=== PATIENT | female | born 1945 | race Two or more races ===

== ENCOUNTER 2017-08-27 21:09 | Inpatient (IN) | payer MEDICARE, OTHER ==
[~2017-08-27] VITALS: Ht 175.3 cm; Wt 105.7 kg
[~2017-08-27 21:09] MED LIST: ASPIR 8181 MG ORAL; BENAZEPRIL HCL5 MG ORAL; ESTROGEN; HUMULIN N100 UNIT/3 SQ; HUMULIN R100 UNIT/1 SUBQ; METFORMIN HCL500 M1 ORAL; NOVOLIN R100 UNIT/1 SUBQ; OMEPRAZOLE20 M2 ORAL; TRAMADOL; UNOBMED; [UNRECOGNIZED DRUG - REMARK]
[2017-08-27] MEDS: Nitroglycerin Subl 0.4mg tab SL PRN ×2 (21:45→21:52)
[2017-08-27 21:53] VITALS: BP 134/47
[2017-08-27] MEDS ORDERED: Morphine Sulfate 4mg/ml Inj ONE (22:06)
[2017-08-27] MEDS ORDERED: Morphine Sulfate 4mg/ml Inj IVP ONE (22:15)
[2017-08-27 22:21] LABS: BASOPHILS % (AUTO) 0.9 % (0.0-2.0); EOSINOPHILS % (AUTO) 1.5 % (0.0-3.0); LYMPHOCYTES % (AUTO) 17.2 % (20.0-45.0); MEAN CORPUSCULAR HEMOGLOBIN 27.7 PG (27.0-31.0); MEAN CORPUSCULAR HGB CONC 30.1 G/DL (32.0-36.0); MEAN CORPUSCULAR VOLUME 92 FL (80-99); MEAN PLATELET VOLUME 8.5 FL (6.5-10.1); MONOCYTES % (AUTO) 4.2 % (1.0-10.0); NEUTROPHILS % (AUTO) 76.2 % (45.0-75.0); PLATELET COUNT 182 K/UL (150-450); RED BLOOD COUNT 4.35 M/UL (4.20-5.40); RED CELL DISTRIBUTION WIDTH 12.5 % (11.6-14.8); WHITE BLOOD COUNT 10.8 K/UL (4.8-10.8)
[2017-08-27] MEDS ORDERED: PRAVASTATIN SOD20 M1 ORAL (22:57)
[2017-08-27] MEDS ORDERED: PANTOPRAZOLE SO40 MG ORAL (22:57)
[2017-08-27] MEDS ORDERED: GABAPENTIN300 MG ORAL (22:57)
[2017-08-27] MEDS ORDERED: TRAMADOL HCL50 MG ORAL (22:57)
[2017-08-27 22:58] LABS: ALANINE AMINOTRANSFERASE 26 U/L (12-78); ALBUMIN/GLOBULIN RATIO 0.8 (1.0-2.7); ASPARTATE AMINO TRANSFERASE 29 U/L (15-37); CALCIUM 7.8 MG/DL (8.5-10.1); CARBON DIOXIDE 24 MMOL/L (21-32); CHLORIDE 110 MMOL/L (98-107); CKMB 1.1 NG/ML (0.0-3.6); SODIUM 142 MMOL/L (136-145); TOTAL PROTEIN 5.6 G/DL (6.4-8.2)
[2017-08-27 23:34] VITALS: BP 161/62
[2017-08-27 23:53] LABS: APPEARANCE,URINE SLIGHTLY CLOUDY; KETONES,URINE NEGATIVE (NEGATIVE); LEUKOCYTE ESTERASE ,URINE 3+ (NEGATIVE); NITRITE,URINE POSITIVE (NEGATIVE); PH,URINE 5 (4.5-8.0); PROTEIN,URINE 2+ (NEGATIVE); UROBILINOGEN,URINE NORMAL MG/DL (0.0-1.0)
[2017-08-28] VITALS (7 sets, daily range): BP systolic 114–174; BP diastolic 54–92
[2017-08-28 00:26] LABS: BACTERIA,URINE MODERATE /HPF; SQUAMOUS EPITHELIAL CELL,UR MANY /LPF (NONE/OCC); WBC,URINE TNTC /HPF (0 - 2)
[2017-08-28] MEDS ORDERED: Morphine Sulfate 4mg/ml Inj IVP ONE (01:00)
--- NOTE | 2017-08-28 01:26 | Emergency Room Report ---
History of Present Illness General Chief Complaint: Chest Pain Source: Patient Present Illness HPI 72-year-old female presents ED complaining of chest pain. States pain has been there for 4 days. Pain is midsternal, pressure-like, 8/10, nonradiating. Patient states she feels short of breath. Notes leg swelling. Denies history of CHF. Eyes fevers or chills. Denies cough. No other aggravating or leading factors. Denies any other associated symptoms Allergies: Coded Allergies: No Known Allergies (Unverified , 01/31/14) Patient History Past Medical History: DM, HTN Past Surgical History: none Pertinent Family History: none Social History: Denies: smoking, alcohol use, drug use Now: No Immunizations: UTD Reviewed Nursing Documentation: PMH: Agreed, PSxH: Agreed Nursing Documentation-PMH Hx Cardiac Problems: Yes - high cholesterol Hx Hypertension: Yes Hx Diabetes: Yes Hx Cancer: No Hx Gastrointestinal Problems: No Hx Neurological Problems: No Review of Systems All Other Systems: negative except mentioned in HPI Physical Exam Vital Signs Date Time Temp Pulse Resp B/P (MAP) Pulse Ox O2 Delivery O2 Flow Rate FiO2 08/27/17 21:15 98.2 66 18 143/76 90 Room Air 08/27/17 21:49 2.0 Sp02 EP Interpretation: reviewed, normal General Appearance: no apparent distress, alert, GCS 15, non-toxic, obese Head: normocephalic, atraumatic Eyes: bilateral eye normal inspection, bilateral eye PERRL ENT: hearing grossly normal, normal pharynx, no angioedema, normal voice Neck: full range of motion, supple/symm/no masses Respiratory: chest non-tender, lungs clear, normal breath sounds, speaking full sentences Cardiovascular #1: regular rate, rhythm, no edema Cardiovascular #2: 2+ carotid (R), 2+ carotid (L), 2+ radial (R), 2+ radial (L) , 2+ dorsalis pedis (R), 2+ dorsalis pedis (L) Gastrointestinal: normal bowel sounds, non tender, soft, non-distended, no guarding, no rebound Rectal: deferred Genitourinary: normal inspection, no CVA tenderness Musculoskeletal: back normal, gait/station normal, normal range of motion, non- tender, swelling - 1+ pitting edema b/l LE Neurologic: alert, oriented x3, responsive, motor strength/tone normal, sensory intact, speech normal Psychiatric: judgement/insight normal, memory normal, mood/affect normal, no suicidal/homicidal ideation Reflexes: 3+ bicep (R), 3+ bicep (L), 3+ tricep (R), 3+ tricep (L), 3+ knee (R) , 3+ knee (L) Skin: normal color, no rash, warm/dry, well hydrated Lymphatic: no adenopathy Medical Decision Making Diagnostic Impression: Primary Impression: Acute coronary syndrome Additional Impressions: CHF exacerbation Qualified Codes: I50.9 - Heart failure, unspecified Renal failure (ARF), acute on chronic Qualified Codes: N17.9 - Acute kidney failure, unspecified; N18.9 - Chronic kidney disease, unspecified ER Course Hospital Course 72-year-old female presents ED complaining of chest pain, sob Differential diagnoses include: [place]/unstable angina, contusion, muscle strain, PTX, rib fracture Clinical course Patient placed on stretcher. 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 After initial history and physical I ordered labs, EKG, chest x-ray, NTG labs reviewed- no leukocytosis, hb/hct stable, BUN/Cr elevated, trop negative, BNP elevated EKG - NSR, no acute ischemic changes interpreted by me Chest x-ray- CHF, cardiomegaly Chest pain improved after nitroglycerin, morphine. Patient given Lasix. Case discussed with Dr. Balbuena (assigned hospitalist) and he agreed to accept the patient to his service for further care and support I. I feel this is a highly complex case requiring extensive working including EKG/Rhythm strip, Xray/CT/US, Blood/urine lab work, repeat exams while in ED, and administration of strong opiates/narcotics for pain control, admission to hospital or close patient follow up. Diagnosis - ACS, CHF, acute on chronic renal failure admitted to telemetry in serious condition Labs Test 08/27/17 21:39 08/27/17 23:25 White Blood Count 10.8 K/UL (4.8-10.8) Red Blood Count 4.35 M/UL (4.20-5.40) Hemoglobin 12.0 G/DL (12.0-16.0) Hematocrit 40.0 % (37.0-47.0) Mean Corpuscular Volume 92 FL (80-99) Mean Corpuscular Hemoglobin 27.7 PG (27.0-31.0) Mean Corpuscular Hemoglobin Concent 30.1 G/DL (32.0-36.0) Red Cell Distribution Width 12.5 % (11.6-14.8) Platelet Count 182 K/UL (150-450) Mean Platelet Volume 8.5 FL (6.5-10.1) Neutrophils (%) (Auto) 76.2 % (45.0-75.0) Lymphocytes (%) (Auto) 17.2 % (20.0-45.0) Monocytes (%) (Auto) 4.2 % (1.0-10.0) Eosinophils (%) (Auto) 1.5 % (0.0-3.0) Basophils (%) (Auto) 0.9 % (0.0-2.0) Sodium Level 142 MMOL/L (136-145) Potassium Level 4.0 MMOL/L (3.5-5.1) Chloride Level 110 MMOL/L (98-107) Carbon Dioxide Level 24 MMOL/L (21-32) Blood Urea Nitrogen 31 mg/dL (7-18) Creatinine 2.0 MG/DL (0.55-1.30) Estimat Glomerular Filtration Rate mL/min (>60) Glucose Level 242 MG/DL (74-106) Calcium Level 7.8 MG/DL (8.5-10.1) Total Bilirubin 0.3 MG/DL (0.2-1.0) Aspartate Amino Transf (AST/SGOT) 29 U/L (15-37) Alanine Aminotransferase (ALT/SGPT) 26 U/L (12-78) Alkaline Phosphatase 121 U/L (46-116) Total Creatine Kinase 37 U/L (26-308) Creatine Kinase MB 1.1 NG/ML (0.0-3.6) Creatine Kinase MB Relative Index 2.9 Troponin I 0.013 ng/mL (0.000-0.056) Pro-B-Type Natriuretic Peptide 883 (0-125) Total Protein 5.6 G/DL (6.4-8.2) Albumin 2.5 G/DL (3.4-5.0) Globulin 3.1 g/dL Albumin/Globulin Ratio 0.8 (1.0-2.7) Urine Color Pale yellow Urine Appearance Slightly cloudy Urine pH 5 (4.5-8.0) Urine Specific [place] 1.020 (1.005-1.035) Urine Protein 2+ (NEGATIVE) Urine Glucose (UA) 1+ (NEGATIVE) Urine Ketones Negative (NEGATIVE) Urine Occult Blood 2+ (NEGATIVE) Urine Nitrite Positive (NEGATIVE) Urine Bilirubin Negative (NEGATIVE) Urine Urobilinogen Normal MG/DL (0.0-1.0) Urine Leukocyte Esterase 3+ (NEGATIVE) Urine RBC 2-4 /HPF (0 - 2) Urine WBC Tntc /HPF (0 - 2) Urine Squamous Epithelial Cells Many /LPF (NONE/OCC) Urine Bacteria Moderate /HPF (NONE) EKG Diagnostic Results Rate: normal Rhythm: NSR ST Segments: no acute changes ASA given to the pt in ED: No - given at home Rhythm Strip Diag. Results EP Interpretation: yes Rhythm: NSR, no PVC's, no ectopy Chest X-Ray Diagnostic Results Chest X-Ray Diagnostic Results : Chest X-Ray Ordered: Yes # of Views/Limited/Complete: 1 View Indication: Chest Pain EP Interpretation: Yes Interpretation: no consolidation, no pneumothorax, no acute cardiopulmonary disease, other - cardiomegaly. pulmoanry congestion Impression: Other - chf Electronically Signed by: Electronically signed by Vinay Post MD Last Vital Signs Date Time Temp Pulse Resp B/P (MAP) Pulse Ox O2 Delivery O2 Flow Rate FiO2 08/28/17 01:08 98.2 60 18 174/92 97 Nasal Cannula 3.0 Status: improved Disposition: ADMITTED INPATIENT Condition: Serious Referrals: [facility],REFERR[facility] (PCP) VINAY POST M.D. Aug 28, 2017 01:26
[2017-08-28] MEDS ORDERED: traMADol 50mg tab ORAL PRN (02:30)
[2017-08-28] MEDS ORDERED: NovoLOG Insulin Flexpen SUBQ SCH (06:30)
[2017-08-28] MEDS: Morphine Sulfate 2mg/ml Inj IVP PRN ×4 (06:42→19:49)
[2017-08-28] MEDS: NovoLOG Insulin Flexpen SUBQ SCH ×4 (07:07→20:57)
[2017-08-28 08:51] LABS: EOSINOPHILS % (AUTO) 4.2 % (0.0-3.0); LYMPHOCYTES % (AUTO) 28.5 % (20.0-45.0); MEAN CORPUSCULAR HGB CONC 30.9 G/DL (32.0-36.0); MEAN CORPUSCULAR VOLUME 90 FL (80-99); MEAN PLATELET VOLUME 8.8 FL (6.5-10.1); MONOCYTES % (AUTO) 5.1 % (1.0-10.0); NEUTROPHILS % (AUTO) 61.3 % (45.0-75.0); PLATELET COUNT 192 K/UL (150-450); RED BLOOD COUNT 4.32 M/UL (4.20-5.40); RED CELL DISTRIBUTION WIDTH 12.5 % (11.6-14.8)
[2017-08-28] MEDS ORDERED: Aspirin Baby 81mg ORAL ONE (09:00)
[2017-08-28] MEDS ORDERED: Flu Vaccine Quadrivalent 0.5ml IM ONE (09:30)
[2017-08-28] MEDS: Aspirin Baby 81mg ORAL SCH (09:34)
[2017-08-28] MEDS: Lisinopril 10mg tab ORAL SCH (09:34)
[2017-08-28] MEDS: cefTRIAXone 1 GM in D5W 55 ML IVPB SCH (09:34)
[2017-08-28 09:39] LABS: CHOLESTEROL 168 MG/DL (< 200); CHOLESTEROL/HDL RATIO 2.6 (3.3-4.4)
[2017-08-28 10:38] LABS: HEMOGLOBIN A1C 10.4 % (4.5-6.5)
[2017-08-28 10:50] LABS: ALANINE AMINOTRANSFERASE 36 U/L (12-78); ALBUMIN/GLOBULIN RATIO 0.6 (1.0-2.7); ANION GAP 9 (5-15); ASPARTATE AMINO TRANSFERASE 29 U/L (15-37); CALCIUM 8.9 MG/DL (8.5-10.1); CARBON DIOXIDE 27 MMOL/L (21-32); CHLORIDE 102 MMOL/L (98-107); CREATININE 2.4 MG/DL (0.55-1.30); POTASSIUM 4.6 MMOL/L (3.5-5.1); SODIUM 138 MMOL/L (136-145); THYROID STIMULATING HORMONE 1.291 uiU/mL (0.360-3.740); TOTAL PROTEIN 7.5 G/DL (6.4-8.2)
--- NOTE | 2017-08-28 11:09 | Diagnostic Imaging Report ---
Indication: CP Technique: One view of the chest Comparison: 02/06/2014 Findings: The heart is enlarged. There is mild interstitial congestion, new or increased from the earlier study. No focal airspace consolidation. Pleural spaces are clear Impression: Cardiomegaly with mild interstitial edema
[2017-08-28] MEDS: Nitroglycerin 2% oint pkt TOPIC SCH ×2 (11:36→18:11)
--- NOTE | 2017-08-28 12:38 | History & Physical ---
History and Physical History & Physicial dict ACS CHF DM HTN HPLD see orders called cardiology MARISOL ORTIZ Aug 28, 2017 12:38
--- NOTE | 2017-08-28 17:54 | Consultation ---
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
--- NOTE | 2017-08-28 19:16 | History and Physical Report ---
DATE OF ADMISSION: 08/28/2017 CHIEF COMPLAINT: Chest pain. HISTORY OF PRESENT ILLNESS: This 72-year-old woman came from home to the emergency department complaining of four days of chest pain. The pain has been constant and midsternal, radiating to the left shoulder, left arm and the neck. She has some shortness of breath as well as leg swelling. There is no history of congestive heart failure. She has no history of cardiac disease. She had a slight cough. She is a past cigarette smoker. PAST MEDICAL HISTORY: Diabetes, hypertension, and hyperlipidemia. MEDICATIONS: Reviewed and reconciled. She is on insulin. ALLERGIES: None. REVIEW OF SYSTEMS: Otherwise, unremarkable. PHYSICAL EXAMINATION: GENERAL: The patient is obese. VITAL SIGNS: Otherwise, vital signs are normal. HEENT: Head is normocephalic. NECK: No jugular venous distention. CHEST: Clear. CARDIAC: Rhythm is regular. Heart tones are distant. There is no murmur or gallop. EXTREMITIES: No edema. ABDOMEN: Soft and nontender. Liver and spleen not enlarged. EXTREMITIES: No edema present at this time. IMPRESSION: 1. Chest pain, suggestive of acute coronary syndrome. 2. Congestive heart failure. 3. Chronic kidney disease. 4. Diabetes. 5. Hyperlipidemia. PLAN: The patient will be evaluated by Cardiology and cardiac enzymes will be obtained. We will give diuretics and evaluate with an echocardiogram. Rolando Balbuena M.D. DR: KIKI JOB#: [id number] CC:
[2017-08-28] MEDS: Xarelto 15mg tab ORAL SCH (20:55)
[2017-08-29 00:05] VITALS: BP 129/78
[2017-08-29] MEDS: Morphine Sulfate 2mg/ml Inj IVP PRN ×4 (01:43→21:25)
[2017-08-29 04:14] VITALS: BP 122/59
--- NOTE | 2017-08-29 04:17 | Consultation ---
DATE OF CONSULTATION: 08/28/2017 CARDIOLOGY CONSULTATION CONSULTING PHYSICIAN: Rajesh Smith M.D. REQUESTING PHYSICIAN: Rolando Balbuena M.D. REASON FOR CONSULTATION: Chest pain and shortness of breath. HISTORY OF PRESENT ILLNESS: This is a 72-year-old female. She lives at home. She has had four days of chest pain and has had increasing shortness of breath. She also has been noted to be hypoxic and is on high flow oxygen. Pain radiates to her left shoulder, arm, and neck. She has also noted some leg swelling. She has not had palpitations. There is no prior history of cardiovascular disease. PAST MEDICAL HISTORY: Includes hypertension, hyperlipidemia, insulin-requiring diabetes mellitus, and obesity. ALLERGIES: None. MEDICATIONS: Reviewed and reconciled. SOCIAL HISTORY: Notable for prior smoking history. No alcohol or substance abuse. FAMILY HISTORY: Noncontributory. REVIEW OF SYSTEMS: No history of retinopathy. No history of asthma. No known blood clots in the legs. No history of seizures or stroke. Diabetes is managed with insulin. There is no history of thyroid disorder. She does have chronic kidney disease due to nephropathy. She has not noted any change in bowel habits. PHYSICAL EXAMINATION: GENERAL: Moderately obese, in mild respiratory distress. VITAL SIGNS: Blood pressure 114/54, pulse 62, respirations 22, and oxygen saturation 97% on a Venturi mask. HEENT: Conjunctiva pink. Oropharynx clear. NECK: Supple. Accessory muscle use is noted. LUNGS: With diminished breath sounds. No wheezing or rales. CARDIAC: Regular rhythm and rate. Normal S1 and S2 with no murmur, rub, or gallop. ABDOMEN: Soft and nontender. EXTREMITIES: With trace to 1+ dependent lower extremity edema. No calf tenderness. LABORATORY AND DIAGNOSTIC DATA: White count 10 and hemoglobin 12.1. Potassium 4.6, BUN 36, and creatinine 2.4. Troponin is 0.013. Natriuretic peptide pending. TSH 1.29. Chest x-ray with no acute process. Echocardiogram revealed normal ejection fraction with diastolic dysfunction, moderate tricuspid regurgitation, and pulmonary hypertension that is severe with PA systolic pressure of 73. The right heart chambers were poorly visualized. IMPRESSION: This is a 72-year-old female. She presents to the hospital with several days of chest pain and shortness of breath and has had progressive hypoxia. Her echocardiogram is suggestive of severe pulmonary hypertension. Her EKG, which is reviewed revealed sinus rhythm with no acute ST-T wave abnormality. Consent at this time would include an acute pulmonary embolic event, an acute myocardial ischemic event, and less likely acute diastolic congestive heart failure. RECOMMENDATIONS: Continue anti-platelet therapy. DVT prophylaxis. V/Q scan to evaluate for possible pulmonary embolus. Venous duplex to assess for source of pulmonary embolus. Titrate oxygen for adequate perfusion and oxygenation. Diuresis trial. Further recommendations will follow once these preliminary studies are obtained. Rajesh Smith M.D. DR: KYREE JOB#: [id number] CC:
[2017-08-29] MEDS: Nitroglycerin 2% oint pkt TOPIC SCH ×3 (06:18→17:07)
[2017-08-29] MEDS: NovoLOG Insulin Flexpen SUBQ SCH ×4 (06:20→21:11)
[2017-08-29 07:15] LABS: BASOPHILS % (AUTO) 1.2 % (0.0-2.0); EOSINOPHILS % (AUTO) 6.4 % (0.0-3.0); LYMPHOCYTES % (AUTO) 22.4 % (20.0-45.0); MEAN CORPUSCULAR HEMOGLOBIN 27.9 PG (27.0-31.0); MEAN CORPUSCULAR HGB CONC 30.7 G/DL (32.0-36.0); MEAN CORPUSCULAR VOLUME 91 FL (80-99); MEAN PLATELET VOLUME 9.6 FL (6.5-10.1); NEUTROPHILS % (AUTO) 64.1 % (45.0-75.0); PLATELET COUNT 192 K/UL (150-450); RED BLOOD COUNT 4.33 M/UL (4.20-5.40); RED CELL DISTRIBUTION WIDTH 12.7 % (11.6-14.8); WHITE BLOOD COUNT 8.9 K/UL (4.8-10.8)
[2017-08-29 08:00] VITALS: BP_SYST 105; BP_SYST 155; BP_DIAS 67
[2017-08-29 08:33] LABS: ALANINE AMINOTRANSFERASE 29 U/L (12-78); ALBUMIN/GLOBULIN RATIO 0.6 (1.0-2.7); ANION GAP 6 (5-15); ASPARTATE AMINO TRANSFERASE 19 U/L (15-37); CALCIUM 8.9 MG/DL (8.5-10.1); CARBON DIOXIDE 31 MMOL/L (21-32); CHLORIDE 97 MMOL/L (98-107); CREATININE 2.5 MG/DL (0.55-1.30); POTASSIUM 4.2 MMOL/L (3.5-5.1); SODIUM 134 MMOL/L (136-145); THYROID STIMULATING HORMONE 0.782 uiU/mL (0.360-3.740); TOTAL PROTEIN 7.7 G/DL (6.4-8.2)
--- NOTE | 2017-08-29 09:23 | Diagnostic Imaging Report ---
Indications: Chest pain, shortness of breath, pulmonary hypertension Technique: IV administration 5.5 mCi 99m technetium macroaggregated albumin. Images obtained over the lungs in multiple projections. Previously, patient inhaled 40 mCi aerosolized 99M technetium DTPA. Images obtained over the lungs in multiple projections Comparison: 02/06/2014 02/06/2014 reference also made to chest radiograph 08/27/2014 Findings: There is marked diffuse heterogeneity to the perfusion images, which was not evident on the previous exam. In addition, there is a focal perfusion defect, at least segmental in size, anterior inferior right upper lobe. The aerosol images demonstrate diffusely heterogeneous tracer distribution, which is overall similar to the perfusion images except that the large right upper lobe defect is mismatched. Note that the chest radiograph demonstrates evidence of interstitial edema. Impression: Diffuse marked heterogeneity to the tracer distribution on perfusion images, with at least one large area of ventilation perfusion mismatch, new since prior study of 02/06/2014. Findings could be attributable to the pulmonary edema that is demonstrated on recent chest radiograph, but must be considered intermediate probability for pulmonary embolus This agrees with the preliminary interpretation provided overnight by [facility] teleradiology service.
[2017-08-29] MEDS: Lisinopril 10mg tab ORAL SCH (10:32)
[2017-08-29] MEDS: Xarelto 15mg tab ORAL SCH ×2 (10:32→17:05)
[2017-08-29] MEDS: cefTRIAXone 1 GM in D5W 55 ML IVPB SCH (10:36)
[2017-08-29] MEDS: Aspirin Baby 81mg ORAL SCH (10:39)
--- NOTE | 2017-08-29 11:18 | Diagnostic Imaging Report ---
Indication: Acute renal failure Technique: Grayscale and duplex images of the kidneys, retroperitoneum, and bladder were obtained. Comparison:02/02/2014 Findings: Right kidney measures 12.4 cm in length. Left kidney measures 12.1 cm in length. Both kidneys demonstrate normal echogenicity. No hydronephrosis. No focal abnormality. Normal inferior vena cava. Bladder is normal. Impression: Increased renal echogenicity bilaterally, consistent with medical renal disease. This is a new finding since 2013 Negative for hydronephrosis.
[2017-08-29 12:00] VITALS: BP 100/56
--- NOTE | 2017-08-29 14:24 | Nephrology Progress Note ---
Assessment/Plan Assessment 1) MEEK due to cardio-renal 2) UTI 3) CHF , ? acute diastolic CHF Plan: Continue diuresis with 80 mg IV lasix q12 No IV fluid please Continue holding off ACEI Subjective Subjective She is slightly less sob,, still on O2 Objective Objective Last 24 Hour Vital Signs Date Time Temp Pulse Resp B/P (MAP) Pulse Ox O2 Delivery O2 Flow Rate FiO2 08/29/17 12:00 97.6 77 22 100/56 96 08/29/17 11:59 105/67 08/29/17 10:32 105/67 08/29/17 08:00 97.7 75 22 105/67 99 08/29/17 08:00 76 08/29/17 06:18 125/60 08/29/17 04:14 97.0 74 20 122/59 94 Venturi Mask 14.0 08/29/17 04:00 75 08/29/17 00:05 98.2 43 20 129/78 99 Venturi Mask 14.0 08/29/17 00:00 72 08/28/17 20:00 69 08/28/17 20:00 97.7 70 20 126/62 95 Venturi Mask 14.0 08/28/17 18:11 114/54 08/28/17 16:06 97.7 62 22 114/54 97 Venturi Mask 14.0 08/28/17 16:00 70 Laboratory Tests 08/28/17 14:45: Troponin I 0.017 08/29/17 06:45: Troponin I 0.000, White Blood Count 8.9, Red Blood Count 4.33, Hemoglobin 12.1, Hematocrit 39.4, Mean Corpuscular Volume 91, Mean Corpuscular Hemoglobin 27.9, Mean Corpuscular Hemoglobin Concent 30.7L, Red Cell Distribution Width 12.7, Platelet Count 192, Mean Platelet Volume 9.6, Neutrophils (%) (Auto) 64.1, Lymphocytes (%) (Auto) 22.4, Monocytes (%) (Auto) 6.0, Eosinophils (%) (Auto) 6.4H, Basophils (%) (Auto) 1.2, Sodium Level 134L, Potassium Level 4.2, Chloride Level 97L, Carbon Dioxide Level 31, Anion Gap 6, Blood Urea Nitrogen 39H, Creatinine 2.5H, Estimat Glomerular Filtration Rate , Glucose Level 225H, Calcium Level 8.9, Total Bilirubin 0.7, Aspartate Amino Transf (AST/SGOT) 19, Alanine Aminotransferase (ALT/SGPT) 29, Alkaline Phosphatase 155H, Pro-B-Type Natriuretic Peptide 565H, Total Protein 7.7, Albumin 2.9L, Globulin 4.8, Albumin /Globulin Ratio 0.6L, Thyroid Stimulating Hormone (TSH) 0.782 Height (Feet): 5 Height (Inches): 9.00 Weight (Pounds): 240 General Appearance: WD/WN, no apparent distress EENT: PERRL/EOMI, normal ENT inspection Cardiovascular: normal rate, regular rhythm Respiratory/Chest: decreased breath sounds, crackles/rales Extremities: moderate edema 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
--- NOTE | 2017-08-29 15:34 | Pulmonology Progress Note ---
Assessment/Plan Assessment/Plan 1. Chest pain due to multiple PEs 2. Congestive heart failure. 3. Chronic kidney disease. 4. Diabetes. 5. Hyperlipidemia. Xarelto O2 venous duplex renal and cardiology following disc w RN rx constipation Subjective ROS Limited/Unobtainable: No Respiratory: Reports: shortness of breath Cardiovascular: Reports: chest pain Allergies: Coded Allergies: No Known Allergies (Unverified , 01/31/14) Objective Last 24 Hour Vital Signs Date Time Temp Pulse Resp B/P (MAP) Pulse Ox O2 Delivery O2 Flow Rate FiO2 08/29/17 12:00 79 08/29/17 12:00 97.6 77 22 100/56 96 08/29/17 11:59 105/67 08/29/17 10:32 105/67 08/29/17 08:00 97.7 75 22 105/67 99 08/29/17 08:00 76 08/29/17 06:18 125/60 08/29/17 04:14 97.0 74 20 122/59 94 Venturi Mask 14.0 08/29/17 04:00 75 08/29/17 00:05 98.2 43 20 129/78 99 Venturi Mask 14.0 08/29/17 00:00 72 08/28/17 20:00 69 08/28/17 20:00 97.7 70 20 126/62 95 Venturi Mask 14.0 08/28/17 18:11 114/54 08/28/17 16:06 97.7 62 22 114/54 97 Venturi Mask 14.0 08/28/17 16:00 70 General Appearance: no acute distress Respiratory/Chest: normal breath sounds Cardiovascular: normal rate Extremities: no edema Microbiology Date/Time Source Procedure Growth Status 08/27/17 23:25 Urine,Clean Catch Urine Culture - Preliminary Gram Negative Bacillus 1 Resulted Laboratory Tests 08/29/17 06:45: White Blood Count 8.9, Red Blood Count 4.33, Hemoglobin 12.1, Hematocrit 39.4, Mean Corpuscular Volume 91, Mean Corpuscular Hemoglobin 27.9, Mean Corpuscular Hemoglobin Concent 30.7L, Red Cell Distribution Width 12.7, Platelet Count 192, Mean Platelet Volume 9.6, Neutrophils (%) (Auto) 64.1, Lymphocytes (%) (Auto) 22.4, Monocytes (%) (Auto) 6.0, Eosinophils (%) (Auto) 6.4H, Basophils (%) (Auto ) 1.2, Sodium Level 134L, Potassium Level 4.2, Chloride Level 97L, Carbon Dioxide Level 31, Anion Gap 6, Blood Urea Nitrogen 39H, Creatinine 2.5H, Estimat Glomerular Filtration Rate , Glucose Level 225H, Calcium Level 8.9, Total Bilirubin 0.7, Aspartate Amino Transf (AST/SGOT) 19, Alanine Aminotransferase (ALT/SGPT) 29, Alkaline Phosphatase 155H, Troponin I 0.000, Pro -B-Type Natriuretic Peptide 565H, Total Protein 7.7, Albumin 2.9L, Globulin 4.8 , Albumin/Globulin Ratio 0.6L, Thyroid Stimulating Hormone (TSH) 0.782 Current Medications Medications (Trade) Dose Ordered Sig/Mary Route PRN Reason Start Time Stop Time Status Last Admin Dose Admin Ceftriaxone Sodium 1 gm/ Dextrose 55 ml @ 110 mls/hr Q24H IVPB 08/28/17 09:00 09/04/17 08:59 08/29/17 10:36 Dextrose (Dextrose 50%) STAT PRN IV Hypoglycemia 08/28/17 02:30 09/27/17 02:29 Docusate Sodium (Colace) 100 mg TWICE A DAY ORAL 08/29/17 18:00 09/28/17 17:59 UNV Furosemide (Lasix) 80 mg EVERY 12 HOURS IV 08/29/17 15:00 09/28/17 14:59 Gabapentin (Neurontin) 300 mg THREE TIMES A DAY ORAL 08/28/17 09:00 09/27/17 08:59 08/29/17 14:05 Insulin Aspart (NovoLOG) BEFORE MEALS AND HS SUBQ 08/28/17 06:30 09/27/17 06:29 08/29/17 11:41 Magnesium Hydroxide (Mom) 30 ml DAILYPRN PRN ORAL Constipation 08/29/17 15:30 09/28/17 15:29 UNV Morphine Sulfate (Morphine Sulfate) 2 mg Q3HR PRN IVP Severe Pain (Pain Scale 7-10) 08/28/17 06:15 09/04/17 06:14 08/29/17 12:01 Nitroglycerin (Nitro-Bid) 0.5 inch TID@0600,1200,1800 TOPIC 08/28/17 12:00 09/27/17 11:59 08/29/17 11:59 Nitroglycerin (Ntg) 0.4 mg Q5M PRN SL Prn Chest Pain 08/27/17 21:45 09/26/17 21:44 08/27/17 21:52 Pantoprazole (Protonix) 40 mg ACBREAKFAST ORAL 08/30/17 06:30 09/27/17 08:59 Pravastatin Sodium (Pravachol) 40 mg BEDTIME ORAL 08/28/17 21:00 09/27/17 20:59 08/28/17 20:55 Rivaroxaban (Xarelto) 15 mg BID ORAL 08/28/17 21:00 09/27/17 20:59 08/29/17 10:32 Tramadol HCl (Ultram) 50 mg TID PRN ORAL For Pain 08/28/17 02:30 09/04/17 02:29 MARISOL ORTIZ Aug 29, 2017 15:34
[2017-08-29 16:00] VITALS: BP 107/61
[2017-08-29] MEDS: Milk of Magnesia 30ml Ud ORAL PRN (16:50)
[2017-08-29] MEDS: Docusate 100mg cap ORAL SCH (16:50)
--- NOTE | 2017-08-29 17:30 | Progress Note ---
DATE: 08/29/2017 CARDIOLOGY PROGRESS NOTE SUBJECTIVE: The patient remains with shortness of breath and hypoxia. A V/Q scan last night was intermediate probability for pulmonary embolus. The patient was started on anticoagulation with rivaroxaban. OBJECTIVE: VITAL SIGNS: Blood pressure 105/67, pulse 75, respiratory rate 22. LUNGS: Diminished breath sounds. No wheezing. HEART: Regular rhythm and rate. Normal S1 and S2 with no murmur. ABDOMEN: Soft. EXTREMITIES: Trace dependent edema. No cords. LABORATORY AND DIAGNOSTIC DATA: Urine culture with gram-negative bacillus. Final ID pending. LABORATORY DATA: White count 8.9, hemoglobin 12.1, platelets 192,000. Troponin is negative. Potassium 4.2, BUN 39, and creatinine 2.5. Pro-natriuretic peptide 565. Albumin 2.8. IMPRESSION: 1. Acute pulmonary embolus. 2. Hypoxia. 3. Acute on chronic renal failure. 4. Acute diastolic congestive heart failure likely right-sided due to pulmonary embolic event. 5. Moderate protein-calorie malnutrition. PLAN: 1. Full anticoagulation. 2. Protein supplements. 3. Cardiac monitoring. 4. Titrate oxygen. 5. Discontinue angiotensin-converting enzyme inhibitor. 6. Empiric antibiotics. 7. Discontinue aspirin to decrease bleeding risk. 8. Cautious hydration. Rajesh Smith M.D. DR: Ashley JOB#: [id number] CC:
[2017-08-29] MEDS ORDERED: Tubing IV Secondary IV ONE (17:42)
[2017-08-29] MEDS ORDERED: NS 275ml ONE (17:42)
--- NOTE | 2017-08-29 18:30 | Consultation ---
DATE OF CONSULTATION: NEPHROLOGY CONSULTATION CONSULTING PHYSICIAN: Chema Lozoya M.D. REFERRING PHYSICIAN: Rolando Balbuena M.D. REASON OF CONSULTATION: Acute kidney injury. HISTORY OF PRESENT ILLNESS: This is a very pleasant 72-year-old female with a longstanding history of diabetes mellitus, also some underlying chronic kidney disease, probably stage 3. She has some degree of proteinuria. Also she claims that she has taken nonsteroidal anti-inflammatory drugs for more than 7 to 10 years prior to this has been brought to the [facility] with increasing shortness of breath, has had some orthopnea and has been on high-flow oxygen. She was given 40 mg of IV Lasix, has had some moderate urine output, serum creatinine being in the range of 2.0, at admission has come up to about 2.4 mg/dL. She has not had any palpitation, no chest pain however troponin levels were somewhat elevated. PAST MEDICAL HISTORY: Significant for hypertension, hyperlipidemia, insulin-requiring type 2 diabetes mellitus, and obesity. She probably also has some arthrosclerotic heart disease. MEDICATIONS: Aspirin 81 mg p.o. daily, benazepril 5 mg p.o. daily, , insulin Humulin R 42 units subcutaneous before breakfast and 38 units before dinner, metformin 500 mg p.o. b.i.d., insulin NPH 124 units subcutaneous before breakfast and 98 units before dinner, omeprazole 20 mg p.o. daily, pravastatin 40 mg p.o. daily, tramadol 50 mg every 6 hours as needed. ALLERGIES: None. SOCIAL HISTORY: She has had remote smoking. Does not smoke any more. No alcohol or drug abuse. She is retired. FAMILY HISTORY: Noncontributory. REVIEW OF SYSTEMS: GENERAL: She has not had any significant weight change. Denies any chills or fever. CARDIOVASCULAR: She has been having some dyspnea with exertion, some orthopnea, and some increasing leg edema. URINARY: Denies any urinary foaminess or hematuria. She has had some degree of proteinuria. She has taken nonsteroidal anti-inflammatory drugs for 7 to 10 years on a regular basis. MUSCULOSKELETAL: She has had degenerative joint disease. NEUROLOGICAL: Denies any diplopia or seizure, has some degree of paresthesia in the lower extremities. ENDOCRINE: She is diabetic on insulin. RESPIRATORY: Denies any cough, purulent sputum production, hemoptysis, or wheezing. SKIN: Denies any rash or photosensitivity. GASTROINTESTINAL: Denies any nausea, vomiting, diarrhea, melena, hematochezia. HEMATOLOGICAL: Denies any easy bruising or easy bleeding. The remainder of the review of the systems is negative. PHYSICAL EXAMINATION: GENERAL: She does not seem to be in much acute distress. VITAL SIGNS: Blood pressure is 128/64, pulse 64, respirations 18, temperature 97.3. HEENT: Head is atraumatic. Eyes, pupils are reactive to light. No evidence of papilledema. Ears canals are clear. Tympanic membranes are intact. Nose, nares are patent without any nasal discharge. Throat without inflammation or exudate. NECK: Supple. Jugular venous distention is somewhat increased. No cervical adenopathy. No thyromegaly. HEART: Regular rhythm. LUNGS: Few crackles in both bases. ABDOMEN: Supple. Bowel sounds positive. No hepatosplenomegaly. EXTREMITIES: Lower extremity shows 1 to 2+ pedal edema. NEUROLOGICAL: Cranial nerves seems to be grossly intact. There is no focal neurological deficits present. Deep tendon reflexes are symmetrically but decreased in both lower extremities. LABORATORY DATA: Showing a sodium of 138, potassium 4.6, chloride 102, carbon dioxide is 27, BUN 36, creatinine 2.4, glucose 204. Hemoglobin A1c was 10.4. Alkaline phosphatase 165. Albumin is 2.8, TSH 1.2. WBC is 10, hemoglobin is 12.1, hematocrit 39, platelets of 192. A urinalysis is showing too numerous to count WBCs per high-power field, 2+ protein, 2+ blood, 2 to 4 RBCs per high-power field. IMPRESSION: 1. Acute kidney injury on chronic kidney disease, probably due to prerenal state caused my cardiorenal syndrome. 2. Acute coronary syndrome with elevated troponin with acute congestive heart failure possibly. 3. Chronic kidney disease stage 3 due to nonsteroidal anti-inflammatory drug and some degree of diabetic nephropathy. 4. Type 2 diabetes mellitus insulin requiring with some obesity. 5. Urinary tract infection. PLAN: I would recommend to obtain a renal ultrasound. We will check urine lytes. She needs to be diuresed. I am going to discontinue the Lasix 40 mg IV q.12 h. We will try 80 mg Lasix every 8 hours x2 to see if she is urinating and we adjust the dose according to that. In the presence of an acute kidney injury, I would withhold lisinopril at this point. We are awaiting the urine culture. I agree with IV antibiotics with suspicion of urinary tract infection at this point. Chema Lozoya M.D. DR: Cherelle JOB#: [id number] CC:
[2017-08-29 20:00] VITALS: BP 122/59
--- NOTE | 2017-08-29 23:31 | Cardiology Report ---
APPROVED REPORT EKG Measurement Heart [id number] OR [id number] Sinus rhythm with 1st degree AV block Nonspecific ST abnormality Abnormal ECG
[2017-08-30 00:08] VITALS: BP 119/59
[2017-08-30] MEDS: Morphine Sulfate 2mg/ml Inj IVP PRN ×2 (02:57→20:32)
[2017-08-30 05:00] VITALS: BP 118/51
[2017-08-30] MEDS: Nitroglycerin 2% oint pkt TOPIC SCH ×3 (05:00→17:16)
[2017-08-30] MEDS: NovoLOG Insulin Flexpen SUBQ SCH ×4 (06:01→20:33)
--- NOTE | 2017-08-30 07:51 | Cardiology Report ---
APPROVED REPORT EXAM: Two-dimensional and M-mode echocardiogram with Doppler and color Doppler. INDICATION Chest Pain M-Mode DIMENSIONS IVSd1.1 (0.7-1.1cm)Left Atrium (MM)4.0 (1.6-4.0cm) LVDd5.6 (3.5-5.6cm)Aortic Root3.0 (2.0-3.7cm) PWd0.6 (0.7-1.1cm)Aortic Cusp Exc.2.0 (1.5-2.0cm) LVDs3.9 (2.5-4.0cm) Normal left ventricular chamber size, systolic function and wall motion. Left ventricular ejection fraction estimated to be 60 %. Borderline left ventricular hypertrophy. Anterior Echo-free space, may be due to pericardial fat or effusion. All other cardiac chamber sizes are within normal limits. Focal aortic valve sclerosis with adequate cusp excursion. Thickened mitral valve leaflets with normal excursion. Mitral annulus and aortic root calcification. Pulmonic valve not well visualized. Normal tricuspid valve structure. IVC measured at 2.3 cm with slight physiologic collapse suggestive of increased RA pressure. A color flow and spectral Doppler study was performed and revealed: Trace aortic regurgitation. Trace mitral regurgitation. Mitral diastolic velocities suggest reduced left ventricular relaxation c/w mild LV diastolic dysfunction (Grade I). Moderate tricuspid regurgitation. Tricuspid systolic velocities suggests peak right ventricular systolic pressure of 73 mmHg, consistent with severe pulmonary hypertension.
[2017-08-30 08:00] VITALS: BP 102/45
[2017-08-30 08:02] LABS: BASOPHILS % (AUTO) 1.1 % (0.0-2.0); EOSINOPHILS % (AUTO) 6.6 % (0.0-3.0); LYMPHOCYTES % (AUTO) 26.4 % (20.0-45.0); MEAN CORPUSCULAR HEMOGLOBIN 27.4 PG (27.0-31.0); MEAN CORPUSCULAR HGB CONC 30.4 G/DL (32.0-36.0); MEAN CORPUSCULAR VOLUME 90 FL (80-99); MEAN PLATELET VOLUME 9.2 FL (6.5-10.1); MONOCYTES % (AUTO) 7.2 % (1.0-10.0); NEUTROPHILS % (AUTO) 58.7 % (45.0-75.0); PLATELET COUNT 194 K/UL (150-450); RED BLOOD COUNT 4.61 M/UL (4.20-5.40); RED CELL DISTRIBUTION WIDTH 12.7 % (11.6-14.8); WHITE BLOOD COUNT 9.1 K/UL (4.8-10.8)
[2017-08-30 08:08] LABS: ANION GAP 6 (5-15); CALCIUM 8.6 MG/DL (8.5-10.1); CARBON DIOXIDE 32 MMOL/L (21-32); CHLORIDE 93 MMOL/L (98-107); CREATININE 2.8 MG/DL (0.55-1.30); MAGNESIUM 1.7 MG/DL (1.8-2.4); POTASSIUM 4.3 MMOL/L (3.5-5.1); SODIUM 131 MMOL/L (136-145)
[2017-08-30] MEDS: cefTRIAXone 1 GM in D5W 55 ML IVPB SCH (09:52)
[2017-08-30] MEDS: Xarelto 15mg tab ORAL SCH ×2 (09:53→17:21)
[2017-08-30] MEDS: Docusate 100mg cap ORAL SCH ×2 (09:53→17:15)
--- NOTE | 2017-08-30 11:25 | Pulmonology Progress Note ---
Assessment/Plan Assessment/Plan 1. Chest pain due to multiple PEs 2. Congestive heart failure. 3. Chronic kidney disease. 4. Diabetes. 5. Hyperlipidemia. Xarelto O2 venous duplex renal and cardiology following disc w RN rx constipation Subjective Interval Events: No major change Constitutional: Reports: no symptoms HEENT: Repors: no symptoms Respiratory: Reports: no symptoms Cardiovascular: Reports: no symptoms Allergies: Coded Allergies: No Known Allergies (Unverified , 01/31/14) Objective Last 24 Hour Vital Signs Date Time Temp Pulse Resp B/P (MAP) Pulse Ox O2 Delivery O2 Flow Rate FiO2 08/30/17 09:52 94 Simple Mask 6.0 08/30/17 08:08 Simple Mask 6.0 08/30/17 08:00 74 08/30/17 08:00 97.9 70 22 102/45 96 08/30/17 05:00 98.4 60 20 118/51 99 Room Air 08/30/17 05:00 116/61 08/30/17 04:00 75 08/30/17 03:27 97.9 08/30/17 00:08 97.9 76 20 119/59 97 Venturi Mask 14.0 08/30/17 00:00 75 08/29/17 20:00 78 08/29/17 20:00 97.0 74 20 122/59 94 Nasal Cannula 2.0 08/29/17 17:07 107/61 08/29/17 16:00 74 08/29/17 16:00 98.0 76 19 107/61 91 Nasal Cannula 3.0 08/29/17 12:00 79 08/29/17 12:00 97.6 77 22 100/56 96 08/29/17 11:59 105/67 General Appearance: no acute distress HEENT: atraumatic Respiratory/Chest: lungs clear Cardiovascular: normal peripheral pulses, normal rate Microbiology Date/Time Source Procedure Growth Status 08/27/17 23:25 Urine,Clean Catch Urine Culture - Final Escherichia Coli Complete Laboratory Tests 08/30/17 06:05: White Blood Count 9.1, Red Blood Count 4.61, Hemoglobin 12.6, Hematocrit 41.5, Mean Corpuscular Volume 90, Mean Corpuscular Hemoglobin 27.4, Mean Corpuscular Hemoglobin Concent 30.4L, Red Cell Distribution Width 12.7, Platelet Count 194, Mean Platelet Volume 9.2, Neutrophils (%) (Auto) 58.7, Lymphocytes (%) (Auto) 26.4, Monocytes (%) (Auto) 7.2, Eosinophils (%) (Auto) 6.6H, Basophils (%) (Auto ) 1.1, Sodium Level 131L, Potassium Level 4.3, Chloride Level 93L, Carbon Dioxide Level 32, Anion Gap 6, Blood Urea Nitrogen 50H, Creatinine 2.8H, Estimat Glomerular Filtration Rate , Glucose Level 240H, Calcium Level 8.6, Magnesium Level 1.7L Current Medications Medications (Trade) Dose Ordered Sig/Mary Route PRN Reason Start Time Stop Time Status Last Admin Dose Admin Ceftriaxone Sodium 1 gm/ Dextrose 55 ml @ 110 mls/hr Q24H IVPB 08/28/17 09:00 09/04/17 08:59 08/30/17 09:52 Dextrose (Dextrose 50%) STAT PRN IV Hypoglycemia 08/28/17 02:30 09/27/17 02:29 Docusate Sodium (Colace) 100 mg TWICE A DAY ORAL 08/29/17 18:00 09/28/17 17:59 08/30/17 09:53 Furosemide (Lasix) 80 mg EVERY 12 HOURS IV 08/29/17 15:00 09/28/17 14:59 08/30/17 09:52 Gabapentin (Neurontin) 300 mg THREE TIMES A DAY ORAL 08/28/17 09:00 09/27/17 08:59 08/30/17 09:53 Insulin Aspart (NovoLOG) BEFORE MEALS AND HS SUBQ 08/28/17 06:30 09/27/17 06:29 08/30/17 06:01 Magnesium Hydroxide (Mom) 30 ml DAILYPRN PRN ORAL Constipation 08/29/17 16:00 09/28/17 15:59 08/29/17 16:50 Morphine Sulfate (Morphine Sulfate) 2 mg Q3HR PRN IVP Severe Pain (Pain Scale 7-10) 08/28/17 06:15 09/04/17 06:14 08/30/17 02:57 Nitroglycerin (Nitro-Bid) 0.5 inch TID@0600,1200,1800 TOPIC 08/28/17 12:00 09/27/17 11:59 08/30/17 05:00 Nitroglycerin (Ntg) 0.4 mg Q5M PRN SL Prn Chest Pain 08/27/17 21:45 09/26/17 21:44 08/27/17 21:52 Pantoprazole (Protonix) 40 mg ACBREAKFAST ORAL 08/30/17 06:30 09/27/17 08:59 08/30/17 04:56 Pravastatin Sodium (Pravachol) 40 mg BEDTIME ORAL 08/28/17 21:00 09/27/17 20:59 08/29/17 21:15 Rivaroxaban (Xarelto) 15 mg BID ORAL 08/28/17 21:00 09/27/17 20:59 08/30/17 09:53 Tramadol HCl (Ultram) 50 mg TID PRN ORAL For Pain 08/28/17 02:30 09/04/17 02:29 Pro Tan MD Aug 30, 2017 11:25
[2017-08-30 12:00] VITALS: BP 141/70
[2017-08-30 16:00] VITALS: BP 113/57
--- NOTE | 2017-08-30 16:00 | Progress Note ---
DATE: 08/30/2017 CARDIOLOGY PROGRESS NOTE SUBJECTIVE: The patient remains on full anticoagulation. She remains hypoxic. She has chest pain with deep inspiration. OBJECTIVE: VITAL SIGNS: Blood pressure 102/45, pulse 70, respiratory rate 22 and monitored rhythm sinus, rare PACs. LUNGS: Bilateral breath sounds. CARDIAC: Regular rhythm and rate. Normal S1 and S2 with a fourth heart sound. ABDOMEN: Soft. EXTREMITIES: No edema. LABORATORY AND DIAGNOSTIC DATA: Venous duplex scan was negative. Ventilation/perfusion scan was intermediate probability. IMPRESSION: 1. Pulmonary emboli. 2. Pulmonary hypertension. 3. Hypoxia. 4. Chronic renal failure. 5. Hyponatremia. 6. Chest pain due to pulmonary emboli. 7. Type 2 diabetes mellitus requiring insulin. 8. Urinary tract infection, on antibiotics. PLAN: 1. Continue full anticoagulation. 2. Oxygen supplementation. 3. Cardiac monitoring due to high risk of atrial arrhythmias. 4. Monitor volume status and cardiorenal parameters closely. 5. The patient remains at high risk. Rajesh Smith M.D. DR: PAM JOB#: [id number] CC:
--- NOTE | 2017-08-30 18:42 | Nephrology Progress Note ---
Assessment/Plan Assessment 1) MEEK due to cardio-renal + Lisonpril causing ATN 2) UTI 3) CHF , ? acute diastolic CHF 4) Probable PE Plan: Will stop IV lasix Continue holding off ACEI Will check venous doppler of LE's Agree with Heparin drip Needs hypercoagulable w/u Check CXR Labs in AM Subjective Subjective She is still very sob, V/Q scan is suspicious of PE, creat is up to 2.8, good diuresis Objective Objective Last 24 Hour Vital Signs Date Time Temp Pulse Resp B/P (MAP) Pulse Ox O2 Delivery O2 Flow Rate FiO2 08/30/17 17:16 113/57 08/30/17 16:00 83 08/30/17 16:00 97.6 74 20 113/57 94 08/30/17 12:39 102/45 08/30/17 12:00 75 08/30/17 12:00 97.8 80 21 141/70 94 08/30/17 09:52 94 Simple Mask 6.0 08/30/17 08:08 Simple Mask 6.0 08/30/17 08:00 74 08/30/17 08:00 97.9 70 22 102/45 96 08/30/17 05:00 98.4 60 20 118/51 99 Room Air 08/30/17 05:00 116/61 08/30/17 04:00 75 08/30/17 03:27 97.9 08/30/17 00:08 97.9 76 20 119/59 97 Venturi Mask 14.0 08/30/17 00:00 75 08/29/17 20:00 78 08/29/17 20:00 97.0 74 20 122/59 94 Nasal Cannula 2.0 Laboratory Tests 08/30/17 06:05: White Blood Count 9.1, Red Blood Count 4.61, Hemoglobin 12.6, Hematocrit 41.5, Mean Corpuscular Volume 90, Mean Corpuscular Hemoglobin 27.4, Mean Corpuscular Hemoglobin Concent 30.4L, Red Cell Distribution Width 12.7, Platelet Count 194, Mean Platelet Volume 9.2, Neutrophils (%) (Auto) 58.7, Lymphocytes (%) (Auto) 26.4, Monocytes (%) (Auto) 7.2, Eosinophils (%) (Auto) 6.6H, Basophils (%) (Auto ) 1.1, Sodium Level 131L, Potassium Level 4.3, Chloride Level 93L, Carbon Dioxide Level 32, Anion Gap 6, Blood Urea Nitrogen 50H, Creatinine 2.8H, Estimat Glomerular Filtration Rate , Glucose Level 240H, Calcium Level 8.6, Magnesium Level 1.7L Height (Feet): 5 Height (Inches): 9.00 Weight (Pounds): 241 General Appearance: WD/WN, no apparent distress EENT: PERRL/EOMI Neck: non-tender, supple Cardiovascular: normal rate Respiratory/Chest: lungs clear Abdomen: normal bowel sounds, non tender, soft, no organomegaly Extremities: trace edema 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
[2017-08-30] MEDS ORDERED: Heparin 25,000u/D5W 500ml 500 ML IV SCH (19:20)
[2017-08-30 19:55] LABS: BASOPHILS % (AUTO) 1.7 % (0.0-2.0); EOSINOPHILS % (AUTO) 5.7 % (0.0-3.0); LYMPHOCYTES % (AUTO) 21.5 % (20.0-45.0); MEAN CORPUSCULAR HEMOGLOBIN 29.4 PG (27.0-31.0); MEAN CORPUSCULAR HGB CONC 32.2 G/DL (32.0-36.0); MEAN CORPUSCULAR VOLUME 91 FL (80-99); MEAN PLATELET VOLUME 8.5 FL (6.5-10.1); MONOCYTES % (AUTO) 5.7 % (1.0-10.0); NEUTROPHILS % (AUTO) 65.4 % (45.0-75.0); PLATELET COUNT 163 K/UL (150-450); RED BLOOD COUNT 4.33 M/UL (4.20-5.40); RED CELL DISTRIBUTION WIDTH 12.4 % (11.6-14.8); WHITE BLOOD COUNT 8.6 K/UL (4.8-10.8)
[2017-08-30 20:00] VITALS: BP 115/52
[2017-08-30] MEDS: Milk of Magnesia 30ml Ud ORAL PRN (20:43)
[2017-08-31] VITALS: BP 111/59
[2017-08-31] MEDS: Morphine Sulfate 2mg/ml Inj IVP PRN ×4 (00:18→20:46)
[2017-08-31 04:00] VITALS: BP 122/63
[2017-08-31] MEDS: Heparin 25,000u/D5W 500ml 500 ML IV SCH ×2 (04:01→17:16)
[2017-08-31] MEDS: NovoLOG Insulin Flexpen SUBQ SCH ×4 (05:43→20:52)
[2017-08-31] MEDS: Nitroglycerin 2% oint pkt TOPIC SCH ×3 (05:47→17:13)
[2017-08-31 07:39] LABS: BASOPHILS % (AUTO) 1.4 % (0.0-2.0); EOSINOPHILS % (AUTO) 7.1 % (0.0-3.0); LYMPHOCYTES % (AUTO) 30.3 % (20.0-45.0); MEAN CORPUSCULAR HEMOGLOBIN 28.1 PG (27.0-31.0); MEAN CORPUSCULAR HGB CONC 31.2 G/DL (32.0-36.0); MEAN CORPUSCULAR VOLUME 90 FL (80-99); MEAN PLATELET VOLUME 8.7 FL (6.5-10.1); MONOCYTES % (AUTO) 6.7 % (1.0-10.0); NEUTROPHILS % (AUTO) 54.5 % (45.0-75.0); PLATELET COUNT 187 K/UL (150-450); RED BLOOD COUNT 4.48 M/UL (4.20-5.40); RED CELL DISTRIBUTION WIDTH 12.6 % (11.6-14.8); WHITE BLOOD COUNT 7.2 K/UL (4.8-10.8)
[2017-08-31 07:51] LABS: ALANINE AMINOTRANSFERASE 15 U/L (12-78); ALBUMIN/GLOBULIN RATIO 0.6 (1.0-2.7); ANION GAP 5 (5-15); ASPARTATE AMINO TRANSFERASE 16 U/L (15-37); CALCIUM 8.7 MG/DL (8.5-10.1); CARBON DIOXIDE 32 MMOL/L (21-32); CHLORIDE 92 MMOL/L (98-107); CREATININE 2.4 MG/DL (0.55-1.30); SODIUM 129 MMOL/L (136-145); TOTAL PROTEIN 7.5 G/DL (6.4-8.2)
[2017-08-31 08:12] VITALS: BP 128/62
[2017-08-31] MEDS: Docusate 100mg cap ORAL SCH ×2 (09:27→17:10)
[2017-08-31] MEDS: cefTRIAXone 1 GM in D5W 55 ML IVPB SCH (09:28)
--- NOTE | 2017-08-31 10:06 | Nephrology Progress Note ---
Assessment/Plan Assessment 1) MEEK due to cardio-renal + Lisonpril causing ATN, improving 2) UTI 3) CHF , ? acute diastolic CHF 4) Probable PE Plan: Will stop IV lasix Continue holding off ACEI Agree with Heparin drip Needs hypercoagulable w/u Awaiting CXR Labs in AM Subjective Subjective She is still sob,she has good diuresis, creat is down to 2.4, NA is 129 Objective Objective Last 24 Hour Vital Signs Date Time Temp Pulse Resp B/P (MAP) Pulse Ox O2 Delivery O2 Flow Rate FiO2 08/31/17 08:12 97.9 79 18 128/62 91 Simple Mask 6.0 08/31/17 05:47 101/56 08/31/17 04:49 97.0 08/31/17 04:00 97.0 68 18 122/63 93 Simple Mask 6.0 08/31/17 04:00 72 08/31/17 00:00 71 08/31/17 00:00 97.3 73 18 111/59 93 Simple Mask 6.0 08/30/17 20:30 93 Simple Mask 6.0 08/30/17 20:30 Simple Mask 6.0 08/30/17 20:00 78 08/30/17 20:00 97.7 71 18 115/52 93 Simple Mask 6.0 08/30/17 17:16 113/57 08/30/17 16:00 83 08/30/17 16:00 97.6 74 20 113/57 94 08/30/17 12:39 102/45 08/30/17 12:00 75 08/30/17 12:00 97.8 80 21 141/70 94 Intake and Output 08/31/17 09/01/17 19:00 07:00 Intake Total 240 ml Output Total 150 ml Balance 90 ml Intake Oral 240 ml Output Urine Total 150 ml # Bowel Movements 1 Laboratory Tests 08/30/17 19:35: White Blood Count 8.6, Red Blood Count 4.33, Hemoglobin 12.7, Hematocrit 39.6, Mean Corpuscular Volume 91, Mean Corpuscular Hemoglobin 29.4, Mean Corpuscular Hemoglobin Concent 32.2, Red Cell Distribution Width 12.4, Platelet Count 163, Mean Platelet Volume 8.5, Neutrophils (%) (Auto) 65.4, Lymphocytes (%) (Auto) 21.5, Monocytes (%) (Auto) 5.7, Eosinophils (%) (Auto) 5.7H, Basophils (%) (Auto ) 1.7, Activated Partial Thromboplast Time 35H 08/31/17 06:00: White Blood Count 7.2, Red Blood Count 4.48, Hemoglobin 12.6, Hematocrit 40.3, Mean Corpuscular Volume 90, Mean Corpuscular Hemoglobin 28.1, Mean Corpuscular Hemoglobin Concent 31.2L, Red Cell Distribution Width 12.6, Platelet Count 187, Mean Platelet Volume 8.7, Neutrophils (%) (Auto) 54.5, Lymphocytes (%) (Auto) 30.3, Monocytes (%) (Auto) 6.7, Eosinophils (%) (Auto) 7.1H, Basophils (%) (Auto ) 1.4, Sodium Level 129L, Potassium Level 4.0, Chloride Level 92L, Carbon Dioxide Level 32, Anion Gap 5, Blood Urea Nitrogen 49H, Creatinine 2.4H, Estimat Glomerular Filtration Rate , Glucose Level 287H, Calcium Level 8.7, Total Bilirubin 0.5, Aspartate Amino Transf (AST/SGOT) 16, Alanine Aminotransferase (ALT/SGPT) 15, Alkaline Phosphatase 129H, Total Protein 7.5, Albumin 2.8L, Globulin 4.7, Albumin/Globulin Ratio 0.6L Height (Feet): 5 Height (Inches): 9.00 Weight (Pounds): 239 General Appearance: WD/WN, no apparent distress EENT: PERRL/EOMI Neck: non-tender, normal alignment Cardiovascular: normal rate, regular rhythm Respiratory/Chest: decreased breath sounds Abdomen: normal bowel sounds, non tender Extremities: moderate edema 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
--- NOTE | 2017-08-31 11:24 | Diagnostic Imaging Report ---
Indication: Shortness of breath Comparison: 08/27/2013 Findings: Single view the chest shows cardiomegaly, not significantly changed. Pulmonary vascular congestion has slightly improved from the prior exam. No significant pleural effusions. Impression: Stable cardiomegaly. There is slight interval improvement of congestive changes.
[2017-08-31 11:48] VITALS: BP 133/68
[2017-08-31 15:28] VITALS: BP 133/70
--- NOTE | 2017-08-31 18:23 | Pulmonology Progress Note ---
Assessment/Plan Assessment/Plan 1. Chest pain due to multiple PEs 2. Congestive heart failure. 3. Chronic kidney disease. 4. Diabetes. 5. Hyperlipidemia. Xarelto O2 venous duplex neative renal and cardiology following disc w RN rx constipation dc when stable, may need o2 upon dc Subjective HEENT: Repors: no symptoms Respiratory: Reports: shortness of breath Cardiovascular: Reports: no symptoms Gastrointestinal/Abdominal: Reports: no symptoms Genitourinary: Reports: no symptoms Allergies: Coded Allergies: No Known Allergies (Unverified , 01/31/14) Subjective remains on o2 shortness of breath with minimal movement pleuritic cp at times, no nv or bleeding tolerating po no fever noted Objective Last 24 Hour Vital Signs Date Time Temp Pulse Resp B/P (MAP) Pulse Ox O2 Delivery O2 Flow Rate FiO2 08/31/17 17:13 133/70 08/31/17 16:00 67 08/31/17 15:28 97.3 68 18 133/70 98 Simple Mask 08/31/17 13:09 133/68 08/31/17 12:00 70 08/31/17 11:48 98.1 68 18 133/68 96 Simple Mask 6.0 08/31/17 08:12 97.9 79 18 128/62 91 Simple Mask 6.0 08/31/17 08:00 70 08/31/17 05:47 101/56 08/31/17 04:49 97.0 08/31/17 04:00 97.0 68 18 122/63 93 Simple Mask 6.0 08/31/17 04:00 72 08/31/17 00:00 71 08/31/17 00:00 97.3 73 18 111/59 93 Simple Mask 6.0 08/30/17 20:30 93 Simple Mask 6.0 08/30/17 20:30 Simple Mask 6.0 08/30/17 20:00 78 08/30/17 20:00 97.7 71 18 115/52 93 Simple Mask 6.0 Intake and Output 08/31/17 09/01/17 19:00 07:00 Intake Total 1144.832 ml Output Total 600 ml Balance 544.832 ml Intake Oral 720 ml IV Total 424.832 ml Output Urine Total 600 ml # Bowel Movements 1 General Appearance: WD/WN HEENT: atraumatic, mucous membranes moist Respiratory/Chest: normal breath sounds, no respiratory distress Cardiovascular: normal peripheral pulses, normal rate, regular rhythm Abdomen: soft, non tender, no organomegaly Extremities: no cyanosis Skin: no lesions 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, no motor/sensory deficits, abnormal gait Laboratory Tests 08/30/17 19:35: White Blood Count 8.6, Red Blood Count 4.33, Hemoglobin 12.7, Hematocrit 39.6, Mean Corpuscular Volume 91, Mean Corpuscular Hemoglobin 29.4, Mean Corpuscular Hemoglobin Concent 32.2, Red Cell Distribution Width 12.4, Platelet Count 163, Mean Platelet Volume 8.5, Neutrophils (%) (Auto) 65.4, Lymphocytes (%) (Auto) 21.5, Monocytes (%) (Auto) 5.7, Eosinophils (%) (Auto) 5.7H, Basophils (%) (Auto ) 1.7, Activated Partial Thromboplast Time 35H 08/31/17 06:00: White Blood Count 7.2, Red Blood Count 4.48, Hemoglobin 12.6, Hematocrit 40.3, Mean Corpuscular Volume 90, Mean Corpuscular Hemoglobin 28.1, Mean Corpuscular Hemoglobin Concent 31.2L, Red Cell Distribution Width 12.6, Platelet Count 187, Mean Platelet Volume 8.7, Neutrophils (%) (Auto) 54.5, Lymphocytes (%) (Auto) 30.3, Monocytes (%) (Auto) 6.7, Eosinophils (%) (Auto) 7.1H, Basophils (%) (Auto ) 1.4, Sodium Level 129L, Potassium Level 4.0, Chloride Level 92L, Carbon Dioxide Level 32, Anion Gap 5, Blood Urea Nitrogen 49H, Creatinine 2.4H, Estimat Glomerular Filtration Rate , Glucose Level 287H, Calcium Level 8.7, Total Bilirubin 0.5, Aspartate Amino Transf (AST/SGOT) 16, Alanine Aminotransferase (ALT/SGPT) 15, Alkaline Phosphatase 129H, Total Protein 7.5, Albumin 2.8L, Globulin 4.7, Albumin/Globulin Ratio 0.6L 08/31/17 10:11: Activated Partial Thromboplast Time 74H Current Medications Medications (Trade) Dose Ordered Sig/Mary Route PRN Reason Start Time Stop Time Status Last Admin Dose Admin Ceftriaxone Sodium 1 gm/ Dextrose 55 ml @ 110 mls/hr Q24H IVPB 08/28/17 09:00 09/04/17 08:59 08/31/17 09:28 Dextrose (Dextrose 50%) STAT PRN IV Hypoglycemia 08/28/17 02:30 09/27/17 02:29 Docusate Sodium (Colace) 100 mg TWICE A DAY ORAL 08/29/17 18:00 09/28/17 17:59 08/31/17 17:10 Gabapentin (Neurontin) 300 mg THREE TIMES A DAY ORAL 08/28/17 09:00 09/27/17 08:59 08/31/17 17:10 Heparin Sodium/ Dextrose 500 ml @ 39.354 mls/ hr adjust per protocol IV 08/31/17 04:00 09/30/17 03:59 08/31/17 17:16 Insulin Aspart (NovoLOG) BEFORE MEALS AND HS SUBQ 08/28/17 06:30 09/27/17 06:29 08/31/17 17:12 Magnesium Hydroxide (Mom) 30 ml DAILYPRN PRN ORAL Constipation 08/29/17 16:00 09/28/17 15:59 08/30/17 20:43 Morphine Sulfate (Morphine Sulfate) 2 mg Q3HR PRN IVP Severe Pain (Pain Scale 7-10) 08/28/17 06:15 09/04/17 06:14 08/31/17 09:36 Nitroglycerin (Nitro-Bid) 0.5 inch TID@0600,1200,1800 TOPIC 08/28/17 12:00 09/27/17 11:59 08/31/17 17:13 Pantoprazole (Protonix) 40 mg ACBREAKFAST ORAL 08/30/17 06:30 09/27/17 08:59 08/31/17 05:44 Pravastatin Sodium (Pravachol) 40 mg BEDTIME ORAL 08/28/17 21:00 09/27/17 20:59 08/30/17 20:31 Tramadol HCl (Ultram) 50 mg TID PRN ORAL For Pain 08/28/17 02:30 09/04/17 02:29 MALIK THAKKAR DO Aug 31, 2017 18:23
[2017-08-31 20:00] VITALS: BP 134/64
[2017-09-01] VITALS: BP 135/70
[2017-09-01] MEDS: Morphine Sulfate 2mg/ml Inj IVP PRN ×3 (01:14→13:43)
[2017-09-01 04:00] VITALS: BP 127/73
[2017-09-01] MEDS: Nitroglycerin 2% oint pkt TOPIC SCH ×3 (05:18→16:56)
[2017-09-01 05:21] LABS: BASOPHILS % (AUTO) 1.7 % (0.0-2.0); EOSINOPHILS % (AUTO) 7.8 % (0.0-3.0); MEAN CORPUSCULAR HEMOGLOBIN 28.6 PG (27.0-31.0); MEAN CORPUSCULAR HGB CONC 31.9 G/DL (32.0-36.0); MEAN CORPUSCULAR VOLUME 90 FL (80-99); MONOCYTES % (AUTO) 5.8 % (1.0-10.0); NEUTROPHILS % (AUTO) 50.8 % (45.0-75.0); PLATELET COUNT 194 K/UL (150-450); RED BLOOD COUNT 4.53 M/UL (4.20-5.40); RED CELL DISTRIBUTION WIDTH 12.7 % (11.6-14.8); WHITE BLOOD COUNT 5.7 K/UL (4.8-10.8)
[2017-09-01 05:26] LABS: ANION GAP 6 (5-15); CARBON DIOXIDE 31 MMOL/L (21-32); CHLORIDE 97 MMOL/L (98-107); CREATININE 1.9 MG/DL (0.55-1.30); POTASSIUM 4.4 MMOL/L (3.5-5.1); SODIUM 134 MMOL/L (136-145)
[2017-09-01] MEDS ORDERED: Heparin 25,000u/D5W 500ml 500 ML IV SCH (06:00)
[2017-09-01] MEDS: Heparin 25,000u/D5W 500ml 500 ML IV SCH ×2 (06:35→20:42)
[2017-09-01] MEDS: NovoLOG Insulin Flexpen SUBQ SCH ×4 (06:37→20:41)
--- NOTE | 2017-09-01 06:40 | Pulmonology Progress Note ---
Assessment/Plan Assessment/Plan 1. Chest pain due to multiple PEs 2. Congestive heart failure. 3. Chronic kidney disease. 4. Diabetes. 5. Hyperlipidemia. Xarelto if cr improves, otherwise will need to consider coumadin heparin drip per Rx O2 venous duplex negative renal and cardiology following disc w RN rx constipation dc when stable, may need o2 upon dc Subjective Constitutional: Reports: no symptoms HEENT: Repors: no symptoms Respiratory: Reports: shortness of breath Cardiovascular: Reports: no symptoms Gastrointestinal/Abdominal: Reports: no symptoms Genitourinary: Reports: no symptoms Allergies: Coded Allergies: No Known Allergies (Unverified , 01/31/14) Subjective remains on o2 4 L sats good on heparin (xarelto stopped) due to cr continues with shortness of breath with minimal movement pleuritic cp at times, no nv or bleeding tolerating po no fever noted Objective Last 24 Hour Vital Signs Date Time Temp Pulse Resp B/P (MAP) Pulse Ox O2 Delivery O2 Flow Rate FiO2 09/01/17 05:18 127/73 09/01/17 04:00 66 09/01/17 04:00 97.3 67 20 127/73 100 Simple Mask 09/01/17 01:44 96.0 09/01/17 00:00 74 09/01/17 00:00 96.0 75 20 135/70 98 Simple Mask 08/31/17 20:03 Simple Mask 6.0 08/31/17 20:03 94 Simple Mask 6.0 08/31/17 20:00 97.2 76 20 134/64 98 Simple Mask 6.0 08/31/17 20:00 76 08/31/17 17:13 133/70 08/31/17 16:00 67 08/31/17 15:28 97.3 68 18 133/70 98 Simple Mask 08/31/17 13:09 133/68 08/31/17 12:00 70 08/31/17 11:48 98.1 68 18 133/68 96 Simple Mask 6.0 08/31/17 08:12 97.9 79 18 128/62 91 Simple Mask 6.0 08/31/17 08:00 70 General Appearance: WD/WN Respiratory/Chest: lungs clear Cardiovascular: normal rate, regular rhythm Abdomen: soft, non tender, non distended Extremities: no cyanosis Skin: no lesions Neurologic/Psychiatric: alert, oriented x 3 Lymphatic: no neck adenopathy Laboratory Tests 08/31/17 10:11: Activated Partial Thromboplast Time 74H 09/01/17 04:20: Activated Partial Thromboplast Time 111H, White Blood Count 5.7, Red Blood Count 4.53, Hemoglobin 13.0, Hematocrit 40.6, Mean Corpuscular Volume 90, Mean Corpuscular Hemoglobin 28.6, Mean Corpuscular Hemoglobin Concent 31.9L, Red Cell Distribution Width 12.7, Platelet Count 194, Mean Platelet Volume 9.0, Neutrophils (%) (Auto) 50.8, Lymphocytes (%) (Auto) 34.0, Monocytes (%) (Auto) 5.8, Eosinophils (%) (Auto) 7.8H, Basophils (%) (Auto) 1.7, Sodium Level 134L, Potassium Level 4.4, Chloride Level 97L, Carbon Dioxide Level 31, Anion Gap 6, Blood Urea Nitrogen 38H, Creatinine 1.9H, Estimat Glomerular Filtration Rate , Glucose Level 286H, Calcium Level 9.0 Current Medications Medications (Trade) Dose Ordered Sig/Mary Route PRN Reason Start Time Stop Time Status Last Admin Dose Admin Ceftriaxone Sodium 1 gm/ Dextrose 55 ml @ 110 mls/hr Q24H IVPB 08/28/17 09:00 09/04/17 08:59 08/31/17 09:28 Dextrose (Dextrose 50%) STAT PRN IV Hypoglycemia 08/28/17 02:30 09/27/17 02:29 Docusate Sodium (Colace) 100 mg TWICE A DAY ORAL 08/29/17 18:00 09/28/17 17:59 08/31/17 17:10 Gabapentin (Neurontin) 300 mg THREE TIMES A DAY ORAL 08/28/17 09:00 09/27/17 08:59 08/31/17 17:10 Heparin Sodium/ Dextrose 500 ml @ 32.795 mls/ hr adjust per protocol IV 09/01/17 06:30 10/01/17 06:29 09/01/17 06:35 Insulin Aspart (NovoLOG) BEFORE MEALS AND HS SUBQ 08/28/17 06:30 09/27/17 06:29 09/01/17 06:37 Magnesium Hydroxide (Mom) 30 ml DAILYPRN PRN ORAL Constipation 08/29/17 16:00 09/28/17 15:59 08/30/17 20:43 Morphine Sulfate (Morphine Sulfate) 2 mg Q3HR PRN IVP Severe Pain (Pain Scale 7-10) 08/28/17 06:15 09/04/17 06:14 09/01/17 01:14 Nitroglycerin (Nitro-Bid) 0.5 inch TID@0600,1200,1800 TOPIC 08/28/17 12:00 09/27/17 11:59 09/01/17 05:18 Pantoprazole (Protonix) 40 mg ACBREAKFAST ORAL 08/30/17 06:30 09/27/17 08:59 09/01/17 05:16 Pravastatin Sodium (Pravachol) 40 mg BEDTIME ORAL 08/28/17 21:00 09/27/17 20:59 08/31/17 20:46 Tramadol HCl (Ultram) 50 mg TID PRN ORAL For Pain 08/28/17 02:30 09/04/17 02:29 MALIK THAKKAR DO Sep 01, 2017 06:40
[2017-09-01 08:27] VITALS: BP 141/82
[2017-09-01] MEDS: Docusate 100mg cap ORAL SCH ×2 (09:00→17:02)
[2017-09-01] MEDS: cefTRIAXone 1 GM in D5W 55 ML IVPB SCH (09:04)
--- NOTE | 2017-09-01 10:23 | Nephrology Progress Note ---
Assessment/Plan Assessment 1) MEEK due to cardio-renal + Lisonpril causing ATN, improving 2) UTI 3) CHF , ? acute diastolic CHF 4) I doubt PE, she has musculo-skelettal pain Plan: Will put voltarene gel to the chest area bid labs in AM May restart ACEI tomorrow Stop heparin drip Subjective Subjective She is still sob,she has good diuresis, creat is down to 1.9, NA is 134, still sharp chest pain with deep breathing Objective Objective Last 24 Hour Vital Signs Date Time Temp Pulse Resp B/P (MAP) Pulse Ox O2 Delivery O2 Flow Rate FiO2 09/01/17 08:27 97.2 75 18 141/82 96 Simple Mask 6.0 09/01/17 05:18 127/73 09/01/17 04:00 66 09/01/17 04:00 97.3 67 20 127/73 100 Simple Mask 09/01/17 01:44 96.0 09/01/17 00:00 74 09/01/17 00:00 96.0 75 20 135/70 98 Simple Mask 08/31/17 20:03 Simple Mask 6.0 08/31/17 20:03 94 Simple Mask 6.0 08/31/17 20:00 97.2 76 20 134/64 98 Simple Mask 6.0 08/31/17 20:00 76 08/31/17 17:13 133/70 08/31/17 16:00 67 08/31/17 15:28 97.3 68 18 133/70 98 Simple Mask 08/31/17 13:09 133/68 08/31/17 12:00 70 08/31/17 11:48 98.1 68 18 133/68 96 Simple Mask 6.0 Intake and Output 09/01/17 09/02/17 19:00 07:00 Intake Total 250 ml Output Total 300 ml Balance -50 ml Intake Oral 250 ml Output Urine Total 300 ml # Bowel Movements 1 Laboratory Tests 09/01/17 04:20: White Blood Count 5.7, Red Blood Count 4.53, Hemoglobin 13.0, Hematocrit 40.6, Mean Corpuscular Volume 90, Mean Corpuscular Hemoglobin 28.6, Mean Corpuscular Hemoglobin Concent 31.9L, Red Cell Distribution Width 12.7, Platelet Count 194, Mean Platelet Volume 9.0, Neutrophils (%) (Auto) 50.8, Lymphocytes (%) (Auto) 34.0, Monocytes (%) (Auto) 5.8, Eosinophils (%) (Auto) 7.8H, Basophils (%) (Auto ) 1.7, Activated Partial Thromboplast Time 111H, Sodium Level 134L, Potassium Level 4.4, Chloride Level 97L, Carbon Dioxide Level 31, Anion Gap 6, Blood Urea Nitrogen 38H, Creatinine 1.9H, Estimat Glomerular Filtration Rate , Glucose Level 286H, Calcium Level 9.0 Height (Feet): 5 Height (Inches): 9.00 Weight (Pounds): 238 General Appearance: WD/WN, no apparent distress EENT: PERRL/EOMI Neck: non-tender, normal alignment Cardiovascular: normal rate Respiratory/Chest: lungs clear, normal breath sounds Extremities: normal range of motion Neurologic: communication specialist II-XII grossly normal KATHLEEN HUMPHREY Sep 01, 2017 10:23
[2017-09-01 11:40] VITALS: BP 129/66
[2017-09-01] MEDS: Analgesic Balm 15gm TOPIC SCH ×3 (12:08→20:40)
[2017-09-01 15:58] VITALS: BP 129/60
[2017-09-01 20:00] VITALS: BP 136/63
[2017-09-02] VITALS (7 sets, daily range): BP systolic 127–140; BP diastolic 58–75
[2017-09-02] MEDS: Morphine Sulfate 2mg/ml Inj IVP PRN ×2 (00:36→19:02)
--- NOTE | 2017-09-02 03:45 | Progress Note ---
DATE: 08/31/2017 Late entry report for 08/31/2017 SUBJECTIVE: The patient continues to have shortness of breath with hypoxia. She is on high-flow oxygen. She also has chest pain with deep inspiration. She feels labored. OBJECTIVE: VITAL SIGNS: Blood pressure is 132/70, pulse 67, and respirations 18. Monitored sinus. LUNGS: Diminished breath sounds. HEART: Regular rhythm and rate. Normal S1 and S2 with no new murmur or heaves. ABDOMEN: Soft. EXTREMITIES: With trace edema. LABORATORY DATA: White count is 7.2, hemoglobin 12.6, and platelets 187,000. BUN is 49, creatinine 2.4, and potassium 4.0. IMPRESSION: 1. Pulmonary emboli. 2. Hypokalemia. 3. Hypomagnesemia. 4. Pleuritic chest pain. 5. Acute on chronic renal failure, improving. PLAN: 1. Full anticoagulation. 2. Oxygen support, may need oxygen at home. 3. Remains tenuous and high risk. Rajesh Smith M.D. DR: Sara JOB#: [id number] CC:
--- NOTE | 2017-09-02 04:00 | Progress Note ---
DATE: 09/01/2017 CARDIOLOGY PROGRESS NOTE SUBJECTIVE: The patient with continued shortness of breath. Xarelto was discontinued due to renal failure. She is now on IV heparin. Her renal function has actually improved. OBJECTIVE: VITAL SIGNS: Blood pressure is 127/73, heart rate 66, respiratory rate 20, and afebrile. She is on six liters facemask, saturating 94 to 100%. LUNGS: Diminished breath sounds. HEART: Regular rhythm and rate. Normal S1 and S2 with no heaves or thrills. ABDOMEN: Obese, but soft. EXTREMITIES: 1+ edema. IMPRESSION: 1. Hypoxia. 2. Acute pulmonary emboli. 3. Pleuritic chest pain. 4. Acute on chronic renal failure, improved. 5. Acute on chronic diastolic congestive heart failure, improved. PLAN: 1. Off AMANDEEP inhibitor and diuretics for now. 2. Can resume anticoagulation with Eliquis, if renal function remains stable tomorrow as this agent has less renal pharmacokinetics. 3. Continue oxygen. 4. Monitor volume status and cardiorenal parameters closely. Rajesh Smith M.D. DR: Sara JOB#: [id number] CC:
[2017-09-02 04:08] LABS: BASOPHILS % (AUTO) 1.1 % (0.0-2.0); EOSINOPHILS % (AUTO) 8.2 % (0.0-3.0); LYMPHOCYTES % (AUTO) 30.4 % (20.0-45.0); MEAN CORPUSCULAR HEMOGLOBIN 29.1 PG (27.0-31.0); MEAN CORPUSCULAR HGB CONC 32.3 G/DL (32.0-36.0); MEAN CORPUSCULAR VOLUME 90 FL (80-99); MEAN PLATELET VOLUME 9.3 FL (6.5-10.1); MONOCYTES % (AUTO) 7.8 % (1.0-10.0); NEUTROPHILS % (AUTO) 52.6 % (45.0-75.0); PLATELET COUNT 183 K/UL (150-450); RED BLOOD COUNT 4.16 M/UL (4.20-5.40); RED CELL DISTRIBUTION WIDTH 12.5 % (11.6-14.8); WHITE BLOOD COUNT 6.5 K/UL (4.8-10.8)
[2017-09-02 04:22] LABS: ANION GAP 5 (5-15); CARBON DIOXIDE 31 MMOL/L (21-32); CHLORIDE 98 MMOL/L (98-107); CREATININE 1.8 MG/DL (0.55-1.30); POTASSIUM 4.5 MMOL/L (3.5-5.1); SODIUM 134 MMOL/L (136-145)
[2017-09-02] MEDS ORDERED: Heparin 5000 units/ml inj IV ONE (05:00)
[2017-09-02] MEDS: Heparin 25,000u/D5W 500ml 500 ML IV SCH ×2 (05:12→12:50)
[2017-09-02] MEDS: Nitroglycerin 2% oint pkt TOPIC SCH ×3 (05:59→18:58)
[2017-09-02] MEDS: NovoLOG Insulin Flexpen SUBQ SCH ×4 (06:01→20:48)
[2017-09-02] MEDS: Analgesic Balm 15gm TOPIC SCH ×4 (08:45→20:46)
[2017-09-02] MEDS: Docusate 100mg cap ORAL SCH ×2 (08:46→18:00)
[2017-09-02] MEDS: cefTRIAXone 1 GM in D5W 55 ML IVPB SCH (08:46)
--- NOTE | 2017-09-02 11:22 | Pulmonology Progress Note ---
Assessment/Plan Assessment/Plan 1. Chest pain due to multiple PEs 2. Congestive heart failure. 3. Chronic kidney disease. 4. Diabetes. 5. Hyperlipidemia. Xarelto if cr improves, otherwise will need to consider coumadin presently cr 1.8 heparin drip per Rx O2 venous duplex negative renal and cardiology following disc w RN rx constipation dc when stable, may need o2 upon dc Subjective Interval Events: Ran out if IV access; new IV being placed Constitutional: Reports: no symptoms HEENT: Repors: no symptoms Respiratory: Reports: dyspnea on exertion Cardiovascular: Reports: chest pain Gastrointestinal/Abdominal: Reports: no symptoms Genitourinary: Reports: no symptoms Allergies: Coded Allergies: No Known Allergies (Unverified , 01/31/14) Objective Last 24 Hour Vital Signs Date Time Temp Pulse Resp B/P (MAP) Pulse Ox O2 Delivery O2 Flow Rate FiO2 09/02/17 08:13 96.6 67 18 133/67 97 Nasal Cannula 5.0 09/02/17 08:00 74 09/02/17 05:59 131/67 09/02/17 04:00 71 09/02/17 04:00 96.8 60 20 131/67 98 Nasal Cannula 5.0 09/02/17 00:00 97.5 68 20 139/70 97 Nasal Cannula 4.0 09/02/17 00:00 67 09/01/17 20:00 67 09/01/17 20:00 97.9 68 18 136/63 96 Nasal Cannula 4.0 09/01/17 19:30 Nasal Cannula 4.0 36 09/01/17 19:30 96 Nasal Cannula 4.0 36 09/01/17 16:56 129/60 09/01/17 16:00 62 09/01/17 15:58 97.3 67 18 129/60 95 Nasal Cannula 2.0 09/01/17 12:07 129/66 09/01/17 12:00 66 09/01/17 11:40 97.7 69 18 129/66 97 Room Air Intake and Output 09/02/17 09/03/17 19:00 07:00 Intake Total 37.167 ml Balance 37.167 ml IV Total 37.167 ml # Bowel Movements 1 General Appearance: no acute distress HEENT: normocephalic Respiratory/Chest: chest wall non-tender, lungs clear Cardiovascular: normal peripheral pulses, normal rate Laboratory Tests 09/01/17 13:00: Activated Partial Thromboplast Time 74H 09/02/17 03:35: Activated Partial Thromboplast Time 58H, White Blood Count 6.5, Red Blood Count 4.16L, Hemoglobin 12.1, Hematocrit 37.5, Mean Corpuscular Volume 90, Mean Corpuscular Hemoglobin 29.1, Mean Corpuscular Hemoglobin Concent 32.3, Red Cell Distribution Width 12.5, Platelet Count 183, Mean Platelet Volume 9.3, Neutrophils (%) (Auto) 52.6, Lymphocytes (%) (Auto) 30.4, Monocytes (%) (Auto) 7.8, Eosinophils (%) (Auto) 8.2H, Basophils (%) (Auto) 1.1, Sodium Level 134L, Potassium Level 4.5, Chloride Level 98, Carbon Dioxide Level 31, Anion Gap 5, Blood Urea Nitrogen 28H, Creatinine 1.8H, Estimat Glomerular Filtration Rate , Glucose Level 317H, Calcium Level 9.0 09/02/17 10:45: Activated Partial Thromboplast Time [Pending] Current Medications Medications (Trade) Dose Ordered Sig/Mary Route PRN Reason Start Time Stop Time Status Last Admin Dose Admin Ceftriaxone Sodium 1 gm/ Dextrose 55 ml @ 110 mls/hr Q24H IVPB 08/28/17 09:00 09/04/17 08:59 09/02/17 08:46 Dextrose (Dextrose 50%) STAT PRN IV Hypoglycemia 08/28/17 02:30 09/27/17 02:29 Docusate Sodium (Colace) 100 mg TWICE A DAY ORAL 08/29/17 18:00 09/28/17 17:59 08/31/17 17:10 Gabapentin (Neurontin) 300 mg THREE TIMES A DAY ORAL 08/28/17 09:00 09/27/17 08:59 09/02/17 08:45 Heparin Sodium/ Dextrose 500 ml @ 37.167 mls/ hr adjust per protocol IV 09/02/17 05:00 10/02/17 04:59 09/02/17 05:12 Insulin Aspart (NovoLOG) BEFORE MEALS AND HS SUBQ 08/28/17 06:30 09/27/17 06:29 09/02/17 06:01 Magnesium Hydroxide (Mom) 30 ml DAILYPRN PRN ORAL Constipation 08/29/17 16:00 09/28/17 15:59 08/30/17 20:43 Menthol/Methyl Salicylate (Bengay) 1 applic FOUR TIMES A DAY TOPIC 09/01/17 13:00 10/01/17 12:59 09/02/17 08:45 Morphine Sulfate (Morphine Sulfate) 2 mg Q3HR PRN IVP Severe Pain (Pain Scale 7-10) 08/28/17 06:15 09/04/17 06:14 09/02/17 00:36 Nitroglycerin (Nitro-Bid) 0.5 inch TID@0600,1200,1800 TOPIC 08/28/17 12:00 09/27/17 11:59 09/02/17 05:59 Pantoprazole (Protonix) 40 mg ACBREAKFAST ORAL 08/30/17 06:30 09/27/17 08:59 09/02/17 05:58 Pravastatin Sodium (Pravachol) 40 mg BEDTIME ORAL 08/28/17 21:00 09/27/17 20:59 09/01/17 20:39 Tramadol HCl (Ultram) 50 mg TID PRN ORAL For Pain 08/28/17 02:30 09/04/17 02:29 Pro Tan MD Sep 02, 2017 11:22
--- NOTE | 2017-09-02 12:15 | Nephrology Progress Note ---
Assessment/Plan Assessment 1) MEEK due to cardio-renal + Lisonpril causing ATN, improving 2) UTI 3) CHF , ? acute diastolic CHF 4) I doubt PE, she has musculo-skelettal pain Plan: labs in AM Will give lasix 80 mg IV Q8 x2 Will restart Novolin 70/30 at 55 units BID Subjective Subjective She is still sob and orthopnea but better, creat is down to 1.8, BG in the 200- 300's, she was taking Novolog 70/30 55 units BID at home Objective Objective Last 24 Hour Vital Signs Date Time Temp Pulse Resp B/P (MAP) Pulse Ox O2 Delivery O2 Flow Rate FiO2 09/02/17 11:44 97.3 64 20 127/67 98 Nasal Cannula 5.0 09/02/17 08:13 96.6 67 18 133/67 97 Nasal Cannula 5.0 09/02/17 08:00 74 09/02/17 05:59 131/67 09/02/17 04:00 71 09/02/17 04:00 96.8 60 20 131/67 98 Nasal Cannula 5.0 09/02/17 00:00 97.5 68 20 139/70 97 Nasal Cannula 4.0 09/02/17 00:00 67 09/01/17 20:00 67 09/01/17 20:00 97.9 68 18 136/63 96 Nasal Cannula 4.0 09/01/17 19:30 Nasal Cannula 4.0 36 09/01/17 19:30 96 Nasal Cannula 4.0 36 09/01/17 16:56 129/60 09/01/17 16:00 62 09/01/17 15:58 97.3 67 18 129/60 95 Nasal Cannula 2.0 Intake and Output 09/02/17 09/03/17 19:00 07:00 Intake Total 277.167 ml Balance 277.167 ml Intake Oral 240 ml IV Total 37.167 ml # Bowel Movements 1 Laboratory Tests 09/01/17 13:00: Activated Partial Thromboplast Time 74H 09/02/17 03:35: Activated Partial Thromboplast Time 58H, White Blood Count 6.5, Red Blood Count 4.16L, Hemoglobin 12.1, Hematocrit 37.5, Mean Corpuscular Volume 90, Mean Corpuscular Hemoglobin 29.1, Mean Corpuscular Hemoglobin Concent 32.3, Red Cell Distribution Width 12.5, Platelet Count 183, Mean Platelet Volume 9.3, Neutrophils (%) (Auto) 52.6, Lymphocytes (%) (Auto) 30.4, Monocytes (%) (Auto) 7.8, Eosinophils (%) (Auto) 8.2H, Basophils (%) (Auto) 1.1, Sodium Level 134L, Potassium Level 4.5, Chloride Level 98, Carbon Dioxide Level 31, Anion Gap 5, Blood Urea Nitrogen 28H, Creatinine 1.8H, Estimat Glomerular Filtration Rate , Glucose Level 317H, Calcium Level 9.0 09/02/17 10:45: Activated Partial Thromboplast Time 80H Height (Feet): 5 Height (Inches): 9.00 Weight (Pounds): 242 General Appearance: WD/WN, no apparent distress EENT: PERRL/EOMI Neck: non-tender, normal alignment Cardiovascular: normal rate, regular rhythm, JVD - high Respiratory/Chest: crackles/rales Abdomen: normal bowel sounds, non tender Neurologic: collar stitcher II-XII grossly normal KATHLEEN HUMPHREY Sep 02, 2017 12:15
[2017-09-02 18:18] LABS: BASOPHILS % (AUTO) 1.2 % (0.0-2.0); EOSINOPHILS % (AUTO) 5.9 % (0.0-3.0); LYMPHOCYTES % (AUTO) 30.5 % (20.0-45.0); MEAN CORPUSCULAR HEMOGLOBIN 27.4 PG (27.0-31.0); MEAN CORPUSCULAR HGB CONC 29.5 G/DL (32.0-36.0); MEAN CORPUSCULAR VOLUME 93 FL (80-99); MEAN PLATELET VOLUME 8.3 FL (6.5-10.1); MONOCYTES % (AUTO) 4.9 % (1.0-10.0); NEUTROPHILS % (AUTO) 57.6 % (45.0-75.0); PLATELET COUNT 185 K/UL (150-450); RED BLOOD COUNT 4.51 M/UL (4.20-5.40); RED CELL DISTRIBUTION WIDTH 12.7 % (11.6-14.8); WHITE BLOOD COUNT 6.7 K/UL (4.8-10.8)
[2017-09-03] VITALS: BP 129/70
[2017-09-03 04:00] VITALS: BP 124/69
[2017-09-03] MEDS: Morphine Sulfate 2mg/ml Inj IVP PRN ×2 (04:00→12:51)
--- NOTE | 2017-09-03 05:30 | Progress Note ---
DATE: 09/02/2017 CARDIOLOGY PROGRESS NOTE SUBJECTIVE: The patient notes high sugar levels. She is not getting her usual amount of insulin yet. She continues to have chest pain with inspiration. She is slightly less short of breath. She continues to require high flow oxygen. Renal function is improving off angiotensin-converting enzyme inhibitor. OBJECTIVE: VITAL SIGNS: Blood pressure 127/67, pulse 64, respiratory rate 20, and afebrile. NECK: Supple. LUNGS: Clear. CARDIAC: Regular. Normal S1 and S2. ABDOMEN: Soft. EXTREMITIES: Trace dependent edema. LABORATORY DATA: Reviewed. BUN is 28 and creatinine 1.8. IMPRESSION: 1. Pulmonary embolism. 2. Acute on chronic diastolic congestive heart failure. 3. Urinary tract infection. 4. Acute on chronic renal failure, resolving. PLAN: 1. Diuresis. 2. Full anticoagulation. 3. Transition from IV heparin to apixaban. 4. Titrate anti-failure regimen. Rajesh Smith M.D. DR: KYREE JOB#: [id number] CC:
[2017-09-03] MEDS: NovoLOG Insulin Flexpen SUBQ SCH ×4 (06:30→20:31)
[2017-09-03 08:17] VITALS: BP 118/55
[2017-09-03 08:19] LABS: EOSINOPHILS % (AUTO) 6.4 % (0.0-3.0); LYMPHOCYTES % (AUTO) 39.2 % (20.0-45.0); MEAN CORPUSCULAR HEMOGLOBIN 28.9 PG (27.0-31.0); MEAN CORPUSCULAR VOLUME 90 FL (80-99); MEAN PLATELET VOLUME 8.9 FL (6.5-10.1); MONOCYTES % (AUTO) 5.1 % (1.0-10.0); NEUTROPHILS % (AUTO) 48.2 % (45.0-75.0); PLATELET COUNT 208 K/UL (150-450); RED BLOOD COUNT 4.58 M/UL (4.20-5.40); RED CELL DISTRIBUTION WIDTH 12.5 % (11.6-14.8); WHITE BLOOD COUNT 7.8 K/UL (4.8-10.8)
[2017-09-03 08:22] LABS: ALANINE AMINOTRANSFERASE 18 U/L (12-78); ALBUMIN/GLOBULIN RATIO 0.6 (1.0-2.7); ANION GAP 8 mmol/L (5-15); ASPARTATE AMINO TRANSFERASE 16 U/L (15-37); CALCIUM 9.3 MG/DL (8.5-10.1); CARBON DIOXIDE 31 MMOL/L (21-32); CHLORIDE 96 MMOL/L (98-107); POTASSIUM 3.8 MMOL/L (3.5-5.1); SODIUM 135 MMOL/L (136-145); TOTAL PROTEIN 8.2 G/DL (6.4-8.2)
[2017-09-03] MEDS: Docusate 100mg cap ORAL SCH ×2 (09:00→17:54)
[2017-09-03] MEDS: Analgesic Balm 15gm TOPIC SCH ×4 (09:10→20:30)
[2017-09-03] MEDS: Eliquis 2.5mg tablet ORAL SCH ×2 (09:11→17:51)
[2017-09-03] MEDS: cefTRIAXone 1 GM in D5W 55 ML IVPB SCH (09:15)
[2017-09-03 11:55] VITALS: BP 115/68
--- NOTE | 2017-09-03 12:34 | Nephrology Progress Note ---
Assessment/Plan Problem List: (1) Diabetic nephropathies (2) CKD (chronic kidney disease) stage 3, GFR 30-59 ml/min (3) Acute UTI (4) Hyponatremia (5) Acute coronary syndrome (6) Renal failure (ARF), acute on chronic (7) CHF exacerbation Plan start losartan, on discharge increase po lasix 80 bid Subjective Constitutional: Reports: weakness HEENT: Reports: no symptoms Genitourinary: Reports: no symptoms Neurologic/Psychiatric: Reports: no symptoms Subjective still some sob, on and off chest pain Objective Objective Last 24 Hour Vital Signs Date Time Temp Pulse Resp B/P (MAP) Pulse Ox O2 Delivery O2 Flow Rate FiO2 09/03/17 11:55 97.7 65 18 115/68 98 Nasal Cannula 4.0 09/03/17 08:17 97.2 68 18 118/55 96 Nasal Cannula 4.0 09/03/17 08:00 68 09/03/17 04:00 98.1 68 21 124/69 96 Room Air 09/03/17 03:44 75 09/03/17 00:07 68 09/03/17 00:00 98.4 69 23 129/70 95 Nasal Cannula 2.0 09/02/17 20:00 98.1 73 21 128/75 93 Nasal Cannula 5.0 09/02/17 19:30 Nasal Cannula 2.0 28 09/02/17 19:30 95 Nasal Cannula 2.0 28 09/02/17 19:29 71 09/02/17 18:58 132/58 09/02/17 16:05 97.5 72 20 132/58 95 Nasal Cannula 5.0 09/02/17 16:00 77 Intake and Output 09/03/17 09/04/17 19:00 07:00 Intake Total 250 ml Output Total 200 ml Balance 50 ml Intake Oral 250 ml Output Urine Total 200 ml Laboratory Tests 09/02/17 18:05: White Blood Count 6.7, Red Blood Count 4.51, Hemoglobin 12.4, Hematocrit 41.9, Mean Corpuscular Volume 93, Mean Corpuscular Hemoglobin 27.4, Mean Corpuscular Hemoglobin Concent 29.5L, Red Cell Distribution Width 12.7, Platelet Count 185, Mean Platelet Volume 8.3, Neutrophils (%) (Auto) 57.6, Lymphocytes (%) (Auto) 30.5, Monocytes (%) (Auto) 4.9, Eosinophils (%) (Auto) 5.9H, Basophils (%) (Auto ) 1.2 09/03/17 07:40: White Blood Count 7.8, Red Blood Count 4.58, Hemoglobin 13.2, Hematocrit 41.3, Mean Corpuscular Volume 90, Mean Corpuscular Hemoglobin 28.9, Mean Corpuscular Hemoglobin Concent 32.0, Red Cell Distribution Width 12.5, Platelet Count 208, Mean Platelet Volume 8.9, Neutrophils (%) (Auto) 48.2, Lymphocytes (%) (Auto) 39.2, Monocytes (%) (Auto) 5.1, Eosinophils (%) (Auto) 6.4H, Basophils (%) (Auto ) 1.0, Activated Partial Thromboplast Time 29, Sodium Level 135L, Potassium Level 3.8, Chloride Level 96L, Carbon Dioxide Level 31, Anion Gap 8, Blood Urea Nitrogen 29H, Creatinine 2.0H, Estimat Glomerular Filtration Rate , Glucose Level 227H, Calcium Level 9.3, Total Bilirubin 0.4, Aspartate Amino Transf (AST/ SGOT) 16, Alanine Aminotransferase (ALT/SGPT) 18, Alkaline Phosphatase 111, Total Protein 8.2, Albumin 3.0L, Globulin 5.2, Albumin/Globulin Ratio 0.6L Height (Feet): 5 Height (Inches): 9.00 Weight (Pounds): 241 General Appearance: no apparent distress, obese EENT: normal ENT inspection Neck: normal alignment Cardiovascular: normal rate, regular rhythm Respiratory/Chest: lungs clear Abdomen: non tender, soft Extremities: normal inspection, normal capillary refill, trace edema 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
[2017-09-03] MEDS: Losartan 50mg tab ORAL SCH (14:00)
--- NOTE | 2017-09-03 14:53 | Pulmonology Progress Note ---
Assessment/Plan Assessment/Plan 1. Chest pain due to multiple PEs 2. Congestive heart failure. 3. Chronic kidney disease. 4. Diabetes. 5. Hyperlipidemia. Xarelto if cr improves, otherwise will need to consider coumadin presently cr 2 heparin drip per Rx O2 venous duplex negative renal and cardiology following disc w RN rx constipation dc when stable, may need o2 upon dc Subjective Interval Events: none Constitutional: Reports: no symptoms HEENT: Repors: no symptoms Respiratory: Reports: no symptoms Cardiovascular: Reports: no symptoms Allergies: Coded Allergies: No Known Allergies (Unverified , 01/31/14) Objective Last 24 Hour Vital Signs Date Time Temp Pulse Resp B/P (MAP) Pulse Ox O2 Delivery O2 Flow Rate FiO2 09/03/17 12:00 65 09/03/17 11:55 97.7 65 18 115/68 98 Nasal Cannula 4.0 09/03/17 08:17 97.2 68 18 118/55 96 Nasal Cannula 4.0 09/03/17 08:00 68 09/03/17 04:00 98.1 68 21 124/69 96 Room Air 09/03/17 03:44 75 09/03/17 00:07 68 09/03/17 00:00 98.4 69 23 129/70 95 Nasal Cannula 2.0 09/02/17 20:00 98.1 73 21 128/75 93 Nasal Cannula 5.0 09/02/17 19:30 Nasal Cannula 2.0 28 09/02/17 19:30 95 Nasal Cannula 2.0 28 09/02/17 19:29 71 09/02/17 18:58 132/58 09/02/17 16:05 97.5 72 20 132/58 95 Nasal Cannula 5.0 09/02/17 16:00 77 Intake and Output 09/03/17 09/04/17 19:00 07:00 Intake Total 500 ml Output Total 200 ml Balance 300 ml Intake Oral 500 ml Output Urine Total 200 ml General Appearance: no acute distress HEENT: normocephalic Respiratory/Chest: chest wall non-tender, lungs clear Cardiovascular: normal peripheral pulses, normal rate Abdomen: normal bowel sounds, soft, non tender Laboratory Tests 09/02/17 18:05: White Blood Count 6.7, Red Blood Count 4.51, Hemoglobin 12.4, Hematocrit 41.9, Mean Corpuscular Volume 93, Mean Corpuscular Hemoglobin 27.4, Mean Corpuscular Hemoglobin Concent 29.5L, Red Cell Distribution Width 12.7, Platelet Count 185, Mean Platelet Volume 8.3, Neutrophils (%) (Auto) 57.6, Lymphocytes (%) (Auto) 30.5, Monocytes (%) (Auto) 4.9, Eosinophils (%) (Auto) 5.9H, Basophils (%) (Auto ) 1.2 09/03/17 07:40: White Blood Count 7.8, Red Blood Count 4.58, Hemoglobin 13.2, Hematocrit 41.3, Mean Corpuscular Volume 90, Mean Corpuscular Hemoglobin 28.9, Mean Corpuscular Hemoglobin Concent 32.0, Red Cell Distribution Width 12.5, Platelet Count 208, Mean Platelet Volume 8.9, Neutrophils (%) (Auto) 48.2, Lymphocytes (%) (Auto) 39.2, Monocytes (%) (Auto) 5.1, Eosinophils (%) (Auto) 6.4H, Basophils (%) (Auto ) 1.0, Activated Partial Thromboplast Time 29, Sodium Level 135L, Potassium Level 3.8, Chloride Level 96L, Carbon Dioxide Level 31, Anion Gap 8, Blood Urea Nitrogen 29H, Creatinine 2.0H, Estimat Glomerular Filtration Rate , Glucose Level 227H, Calcium Level 9.3, Total Bilirubin 0.4, Aspartate Amino Transf (AST/ SGOT) 16, Alanine Aminotransferase (ALT/SGPT) 18, Alkaline Phosphatase 111, Total Protein 8.2, Albumin 3.0L, Globulin 5.2, Albumin/Globulin Ratio 0.6L Current Medications Medications (Trade) Dose Ordered Sig/Mary Route PRN Reason Start Time Stop Time Status Last Admin Dose Admin Apixaban (Eliquis) 5 mg BID ORAL 09/03/17 09:00 10/03/17 08:59 09/03/17 09:11 Ceftriaxone Sodium 1 gm/ Dextrose 55 ml @ 110 mls/hr Q24H IVPB 08/28/17 09:00 09/04/17 08:59 09/03/17 09:15 Dextrose (Dextrose 50%) STAT PRN IV Hypoglycemia 08/28/17 02:30 09/27/17 02:29 Docusate Sodium (Colace) 100 mg TWICE A DAY ORAL 08/29/17 18:00 09/28/17 17:59 08/31/17 17:10 Furosemide (Lasix) 40 mg BID IV 09/03/17 09:00 10/03/17 08:59 09/03/17 09:10 Gabapentin (Neurontin) 300 mg THREE TIMES A DAY ORAL 08/28/17 09:00 09/27/17 08:59 09/03/17 12:41 Insulin Aspart (NovoLOG Mix 70/ 30) 55 units BIAC SUBQ 09/02/17 16:30 10/02/17 16:29 09/03/17 06:17 Insulin Aspart (NovoLOG) BEFORE MEALS AND HS SUBQ 08/28/17 06:30 09/27/17 06:29 09/03/17 12:40 Losartan Potassium (Cozaar) 100 mg DAILY ORAL 09/03/17 14:00 10/03/17 13:59 Magnesium Hydroxide (Mom) 30 ml DAILYPRN PRN ORAL Constipation 08/29/17 16:00 09/28/17 15:59 08/30/17 20:43 Menthol/Methyl Salicylate (Bengay) 1 applic FOUR TIMES A DAY TOPIC 09/01/17 13:00 10/01/17 12:59 09/03/17 12:41 Morphine Sulfate (Morphine Sulfate) 2 mg Q3HR PRN IVP Severe Pain (Pain Scale 7-10) 08/28/17 06:15 09/04/17 06:14 09/03/17 12:51 Pantoprazole (Protonix) 40 mg ACBREAKFAST ORAL 08/30/17 06:30 09/27/17 08:59 09/03/17 06:19 Pravastatin Sodium (Pravachol) 40 mg BEDTIME ORAL 08/28/17 21:00 09/27/17 20:59 09/02/17 20:46 Tramadol HCl (Ultram) 50 mg TID PRN ORAL For Pain 08/28/17 02:30 09/04/17 02:29 Pro Tan MD Sep 03, 2017 14:53
[2017-09-03 15:43] VITALS: BP 115/58
[2017-09-03 20:00] VITALS: BP 116/61
[2017-09-04 00:03] VITALS: BP 116/63
[2017-09-04] MEDS: Morphine Sulfate 2mg/ml Inj IVP PRN (00:11)
--- NOTE | 2017-09-04 01:30 | Progress Note ---
DATE: 09/03/2017 CARDIOLOGY PROGRESS NOTE SUBJECTIVE: The patient was started on apixaban today. Her creatinine remains around 2. IV heparin was discontinued. The patient reveals fair urine output even with intravenous furosemide. The patient continues to complain of heaviness at night in her chest. OBJECTIVE: VITAL SIGNS: Afebrile. Blood pressure 115/58, pulse 70, respirations 18, and oxygen saturation 98% on four liters nasal cannula. LUNGS: Diminished breath sounds. No wheezing. CARDIOVASCULAR: Regular rhythm and rate. Normal S1 and S2 with a fourth heart sound. ABDOMEN: Soft. EXTREMITIES: Trace edema. LABORATORY DATA: White count 7.8. Sodium 135, potassium 3.8, bicarbonate 31, BUN 29, and creatinine 2. Albumin 3. IMPRESSION: 1. Multiple pulmonary emboli. 2. Recurring chest pain, likely due to pulmonary emboli, however, cardiac ischemia must be considered due to risk factors. 3. Insulin-requiring diabetes mellitus. 4. Hypertensive heart disease. 5. Chronic kidney disease. 6. Acute on chronic diastolic congestive heart failure. PLAN: 1. Full anticoagulation. 2. Titrate insulin. 3. Diurese with caution. 4. Monitor volume status and cardiorenal parameters. 5. Myocardial perfusion scan to assess for coronary flow reserve. 6. Discharge planning to follow. Rajesh Smith M.D. DR: RADHA JOB#: [id number] CC:
[2017-09-04 04:00] VITALS: BP_SYST 133; BP_DIAS 61; BP_DIAS 66
[2017-09-04] MEDS: NovoLOG Insulin Flexpen SUBQ SCH ×4 (06:23→20:49)
[2017-09-04 08:00] VITALS: BP 118/69
[2017-09-04] MEDS: Docusate 100mg cap ORAL SCH ×2 (09:16→18:00)
[2017-09-04] MEDS: Eliquis 2.5mg tablet ORAL SCH (09:16)
[2017-09-04] MEDS: Losartan 50mg tab ORAL SCH (09:16)
[2017-09-04 09:37] LABS: ANION GAP 9 mmol/L (5-15); CALCIUM 9.2 MG/DL (8.5-10.1); CARBON DIOXIDE 31 MMOL/L (21-32); CHLORIDE 99 MMOL/L (98-107); CREATININE 2.1 MG/DL (0.55-1.30); POTASSIUM 3.8 MMOL/L (3.5-5.1); SODIUM 139 MMOL/L (136-145)
[2017-09-04] MEDS: Analgesic Balm 15gm TOPIC SCH ×4 (09:48→20:50)
[2017-09-04 12:00] VITALS: BP 103/53
[2017-09-04] MEDS ORDERED: Adenosine Inj IVP ONE ×2 (14:00)
--- NOTE | 2017-09-04 14:17 | Nephrology Progress Note ---
Assessment/Plan Problem List: (1) Diabetic nephropathies (2) CKD (chronic kidney disease) stage 3, GFR 30-59 ml/min (3) Acute UTI (4) Hyponatremia (5) Acute coronary syndrome (6) Renal failure (ARF), acute on chronic (7) CHF exacerbation (8) Pulmonary emboli Plan start losartan, on discharge increase po lasix 80 bid, anticoagulation, checking if eliquis on insurance Subjective Constitutional: Reports: weakness HEENT: Reports: no symptoms Genitourinary: Reports: no symptoms Neurologic/Psychiatric: Reports: no symptoms Subjective less sob, on and off chest pain Objective Objective Last 24 Hour Vital Signs Date Time Temp Pulse Resp B/P (MAP) Pulse Ox O2 Delivery O2 Flow Rate FiO2 09/04/17 12:00 97.5 72 20 103/53 96 Room Air 09/04/17 09:16 133/61 09/04/17 08:00 98.2 71 20 118/69 95 Nasal Cannula 3.0 09/04/17 04:00 97.9 66 20 133/66 100 Nasal Cannula 3.0 09/04/17 04:00 97.9 66 20 133/61 100 Nasal Cannula 3.0 09/04/17 02:38 70 09/04/17 00:03 97.9 69 20 116/63 97 Nasal Cannula 3.0 09/04/17 00:00 75 09/03/17 20:00 97.9 79 22 116/61 Nasal Cannula 4.0 09/03/17 19:58 Nasal Cannula 3.0 32 09/03/17 19:58 97 Nasal Cannula 3.0 32 09/03/17 19:57 72 09/03/17 16:00 67 09/03/17 15:43 97.9 70 18 115/58 98 Nasal Cannula 4.0 Intake and Output 09/04/17 09/05/17 19:00 07:00 Intake Total 600 ml Balance 600 ml Intake Oral 600 ml # Voids 3 # Bowel Movements 4 Laboratory Tests 09/04/17 07:30: Sodium Level 139, Potassium Level 3.8, Chloride Level 99, Carbon Dioxide Level 31, Anion Gap 9, Blood Urea Nitrogen 36H, Creatinine 2.1H, Estimat Glomerular Filtration Rate , Glucose Level 138H, Calcium Level 9.2, Pro-B-Type Natriuretic Peptide 62 Height (Feet): 5 Height (Inches): 9.00 Weight (Pounds): 241 General Appearance: no apparent distress, obese EENT: PERRL/EOMI Neck: normal alignment Cardiovascular: normal rate, regular rhythm Respiratory/Chest: lungs clear Abdomen: soft, no organomegaly Extremities: trace edema Neurologic: payroll specialist II-XII grossly normal, oriented x 3 LA MCMAHON Sep 04, 2017 14:17
[2017-09-04] MEDS ORDERED: Warfarin Sodium 10mg ORAL ONE (14:30)
[2017-09-04 16:00] VITALS: BP 111/56
--- NOTE | 2017-09-04 16:59 | Diagnostic Imaging Report ---
Indications: Chest pain Technique: Single day single isotope protocol utilized. Initially, resting images obtained using IV administration 10 millicuries 99M technetium Myoview. Subsequently, patient underwent adenosine stress testing. See cardiology report for details. During adenosine infusion, IV administration 32.8 mCi 99 M technetium Myoview. SPECT and planar images obtained. SPECT images gated to 8 phases of the cardiac cycle were also obtained, and reformatted into cine images for evaluation of ejection fraction. The infusion was terminated after 18 mg of adenosine infusion due to severe chest pain Comparison: None Findings: Per cardiology report, patient experienced chest pain. Per cardiology report, resting EKG demonstrates normal sinus rhythm with premature atrial contractions and anterior ischemia, first degree AV block. With infusion, there was prolonged CO interval without significant ST-T wave changes. Imaging demonstrates normal post stress perfusion, no fixed nor reversible post stress perfusion defects. Normal cardiac chamber size.. Calculated post stress ejection fraction 84 percent%. No focal wall motion abnormality Impression: Ischemic clinical response to pharmacologic stress, per cardiology report Nonischemic electrocardiographic response to pharmacologic stress, per cardiology report No imaging findings to suggest ischemia, at level of stress achieved. Calculated post stress ejection fraction greater than 70%
[2017-09-04] MEDS: Xarelto 15mg tab ORAL SCH (18:06)
[2017-09-04 20:00] VITALS: BP 111/60
[2017-09-04] MEDS ORDERED: Enoxaparin 60mg Inj SUBQ SCH (21:00)
--- NOTE | 2017-09-04 23:39 | Diagnostic Imaging Report ---
APPROVED REPORT CPT Code: 76039 Present Symptoms Shortness of breath Comments: Hx Chest Pain, HTN. BILATERAL: Imaging reveals a patent deep venous system bilaterally. There is no evidence of thrombus within the femoral, popliteal or tibial segments. The greater saphenous veins are also within normal limits. Doppler indicates normal spontaneous flow within these segments. The left calf veins were not well visualized.
[2017-09-05] VITALS (7 sets, daily range): BP systolic 111–131; BP diastolic 48–70
--- NOTE | 2017-09-05 06:15 | Progress Note ---
DATE: 09/04/2017 CARDIOLOGY PROGRESS NOTE SUBJECTIVE: The patient had a myocardial perfusion scan today with adenosine stress. Perfusion imaging was normal. Ejection fraction was 70%. No signs of ischemia were noted. The patient did have chest discomfort during the study, however. OBJECTIVE: VITAL SIGNS: Blood pressure 115/68, pulse 66, and respirations 18. NECK: Supple. LUNGS: Clear. CARDIAC: Regular. Normal S1 and S2 with a fourth heart sound. ABDOMEN: Soft. EXTREMITIES: Trace edema. IMPRESSION: 1. Multiple pulmonary emboli. 2. Chest pain not due to coronary insufficiency but rather pleuritic etiologies from pulmonary emboli. 3. Acute on chronic renal failure. 4. Insulin-requiring diabetes mellitus. 5. Acute on chronic diastolic congestive heart failure. PLAN: Transition to oral maintenance diuretic dose. Continue full anticoagulation with apixaban. No indication for nitrates at presently. Supplemental oxygen and discharge planning. Rajesh Smith M.D. DR: HUY JOB#: [id number] CC:
[2017-09-05] MEDS: NovoLOG Insulin Flexpen SUBQ SCH ×4 (06:22→23:21)
--- NOTE | 2017-09-05 06:26 | Pulmonology Progress Note ---
Assessment/Plan Assessment/Plan 1. Chest pain due to multiple PEs 2. Congestive heart failure. 3. Chronic kidney disease. 4. Diabetes. 5. Hyperlipidemia. Xarelto if cr improves, otherwise will need to consider coumadin presently cr 2 heparin drip per Rx O2 venous duplex negative renal and cardiology following disc w RN rx constipation dc when stable, may need o2 upon dc Subjective Interval Events: No new events Constitutional: Reports: no symptoms HEENT: Repors: no symptoms Respiratory: Reports: no symptoms Cardiovascular: Reports: no symptoms Gastrointestinal/Abdominal: Reports: no symptoms Allergies: Coded Allergies: No Known Allergies (Unverified , 01/31/14) Objective Last 24 Hour Vital Signs Date Time Temp Pulse Resp B/P (MAP) Pulse Ox O2 Delivery O2 Flow Rate FiO2 09/05/17 04:48 97.5 75 20 128/59 97 Nasal Cannula 3.0 09/05/17 03:47 79 09/05/17 00:51 97.7 73 16 114/48 Nasal Cannula 2.0 09/04/17 23:48 69 09/04/17 20:00 97.5 81 16 111/60 97 Nasal Cannula 3.0 09/04/17 19:22 89 09/04/17 16:00 97.4 62 20 111/56 95 Nasal Cannula 2.0 09/04/17 16:00 71 09/04/17 12:00 88 09/04/17 12:00 97.5 72 20 103/53 96 Room Air 09/04/17 09:16 133/61 09/04/17 08:00 98.2 71 20 118/69 95 Nasal Cannula 3.0 09/04/17 08:00 96 09/04/17 07:09 Nasal Cannula 3.0 09/04/17 07:09 95 Nasal Cannula 3.0 General Appearance: no acute distress HEENT: normocephalic Respiratory/Chest: chest wall non-tender, lungs clear Cardiovascular: normal peripheral pulses, normal rate Abdomen: normal bowel sounds, soft, non tender Laboratory Tests 09/04/17 07:30: Sodium Level 139, Potassium Level 3.8, Chloride Level 99, Carbon Dioxide Level 31, Anion Gap 9, Blood Urea Nitrogen 36H, Creatinine 2.1H, Estimat Glomerular Filtration Rate , Glucose Level 138H, Calcium Level 9.2, Pro-B-Type Natriuretic Peptide 62 Current Medications Medications (Trade) Dose Ordered Sig/Mary Route PRN Reason Start Time Stop Time Status Last Admin Dose Admin Dextrose (Dextrose 50%) STAT PRN IV Hypoglycemia 08/28/17 02:30 09/27/17 02:29 Docusate Sodium (Colace) 100 mg TWICE A DAY ORAL 08/29/17 18:00 09/28/17 17:59 09/04/17 09:16 Furosemide (Lasix) 40 mg BID IV 09/03/17 09:00 10/03/17 08:59 09/04/17 18:14 Gabapentin (Neurontin) 300 mg THREE TIMES A DAY ORAL 08/28/17 09:00 09/27/17 08:59 09/04/17 18:06 Insulin Aspart (NovoLOG Mix 70/ 30) 55 units BIAC SUBQ 09/02/17 16:30 10/02/17 16:29 09/05/17 06:23 Insulin Aspart (NovoLOG) BEFORE MEALS AND HS SUBQ 08/28/17 06:30 09/27/17 06:29 09/05/17 06:22 Losartan Potassium (Cozaar) 100 mg DAILY ORAL 09/03/17 14:00 10/03/17 13:59 09/04/17 09:16 Magnesium Hydroxide (Mom) 30 ml DAILYPRN PRN ORAL Constipation 08/29/17 16:00 09/28/17 15:59 08/30/17 20:43 Menthol/Methyl Salicylate (Bengay) 1 applic FOUR TIMES A DAY TOPIC 09/01/17 13:00 10/01/17 12:59 09/04/17 20:50 Pantoprazole (Protonix) 40 mg ACBREAKFAST ORAL 08/30/17 06:30 09/27/17 08:59 09/05/17 06:20 Pravastatin Sodium (Pravachol) 40 mg BEDTIME ORAL 08/28/17 21:00 09/27/17 20:59 09/04/17 20:50 Rivaroxaban (Xarelto) 15 mg QPM ORAL 09/04/17 16:30 10/04/17 16:29 09/04/17 18:06 Pro Tan MD Sep 05, 2017 06:26
[2017-09-05 08:08] LABS: BASOPHILS % (AUTO) 0.9 % (0.0-2.0); EOSINOPHILS % (AUTO) 7.3 % (0.0-3.0); LYMPHOCYTES % (AUTO) 33.4 % (20.0-45.0); MEAN CORPUSCULAR HEMOGLOBIN 28.4 PG (27.0-31.0); MEAN CORPUSCULAR HGB CONC 31.3 G/DL (32.0-36.0); MEAN CORPUSCULAR VOLUME 90 FL (80-99); MEAN PLATELET VOLUME 8.9 FL (6.5-10.1); MONOCYTES % (AUTO) 4.7 % (1.0-10.0); NEUTROPHILS % (AUTO) 53.7 % (45.0-75.0); PLATELET COUNT 222 K/UL (150-450); RED BLOOD COUNT 4.54 M/UL (4.20-5.40); RED CELL DISTRIBUTION WIDTH 12.7 % (11.6-14.8); WHITE BLOOD COUNT 9.4 K/UL (4.8-10.8)
[2017-09-05 08:15] LABS: ANION GAP 6 mmol/L (5-15); CALCIUM 9.4 MG/DL (8.5-10.1); CARBON DIOXIDE 32 MMOL/L (21-32); CHLORIDE 102 MMOL/L (98-107); CREATININE 2.1 MG/DL (0.55-1.30); SODIUM 140 MMOL/L (136-145)
[2017-09-05 08:16] LABS: PROTHROMBIN TIME 10.6 SEC (9.30-11.50)
[2017-09-05] MEDS: Losartan 50mg tab ORAL SCH (09:00)
[2017-09-05] MEDS: Docusate 100mg cap ORAL SCH ×2 (11:10→17:31)
[2017-09-05] MEDS: Analgesic Balm 15gm TOPIC SCH ×4 (11:10→22:15)
[2017-09-05] MEDS: Xarelto 15mg tab ORAL SCH (17:30)
[2017-09-05] MEDS ORDERED: COZAAR50 MG ORAL (19:44)
[2017-09-05] MEDS ORDERED: XARELTO15 MG ORAL (19:44)
[2017-09-05] MEDS ORDERED: FUROSEMIDE40 MG ORAL (19:44)
[2017-09-05] MEDS ORDERED: NOVOLOG MI100 UNIT/3 SUBQ (19:44)
--- NOTE | 2017-09-06 00:01 | Discharge Summary ---
DATE OF ADMISSION: 08/28/2017 DATE OF DISCHARGE: 09/05/2017 PERTINENT HISTORY: See the dictation by Dr. Balbuena's on admission. She is a 72-year-old lady with insulin-dependent diabetes, shortness of breath, leg swelling and some chest discomfort. PERTINENT PHYSICAL FINDINGS: HEENT: Unremarkable. LUNGS: Clear. HEART: Regular rhythm. Heart sounds are distant. EXTREMITIES: No edema. ABDOMEN: Soft and nontender. COURSE IN THE HOSPITAL: The patient was evaluated for cardiac disease. She was seen by Dr. Balbuena and Dr. Smith and myself. The patient had congestive heart failure, was diuresed. She had an abnormal nuclear medicine lung scan consistent with pulmonary emboli, although there were no DVT on ultrasound. She was anticoagulated. Her diabetes treatment was adjusted. She did have chronic kidney disease with creatinine ranging from 2.5 to 1.8 during this admission and likely diabetic nephropathy. On the day of discharge, she felt better. Her lungs were clear. Heart, regular rhythm. Extremities show only trace edema and she was discharged home in stable condition. FINAL DIAGNOSES: 1. Congestive heart failure, acute on chronic with diastolic dysfunction. 2. Pulmonary emboli, acute. 3. Negative stress test nuclear medicine with the post-stress ejection fracture greater than 70%. 4. Insulin-dependent diabetes. 5. Diabetic nephropathy. 6. Chronic kidney disease stage 3. DISCHARGE DISPOSITION: She is discharged home. She needs to follow up with her PCP who is not on staff in this hospital. She is given detailed instructions on her medications and need for close follow up in view of her comorbidities. Mitchell Corona M.D. DR: JOHN JOB#: [id number] CC:
[2017-09-06 00:10] VITALS: BP 132/68
[2017-09-06 04:12] VITALS: BP 132/60
--- NOTE | 2017-09-06 05:00 | Progress Note ---
DATE: 09/05/2017 CARDIOLOGY PROGRESS NOTE SUBJECTIVE: The patient continues to have shortness of breath and chest pain. Her myocardial perfusion scan yesterday was normal. OBJECTIVE: VITAL SIGNS: Blood pressure 128/59, pulse 75, and respirations 20. NECK: Supple. LUNGS: Clear. CARDIAC: Regular. Normal S1, S2. ABDOMEN: Soft. EXTREMITIES: No edema. IMPRESSION: 1. Pulmonary emboli. 2. Pleuritic chest pain. 3. Acute on chronic diastolic congestive heart failure. 4. Chronic kidney disease. 5. Type 2 diabetes mellitus. PLAN: Apixaban more appropriate for renal impairment than Xarelto. This can be considered as therapy versus warfarin. No changes in current cardiovascular regimen and recommended maintenance diuretic dosing on board. Rajesh Smith M.D. DR: MANGO JOB#: [id number] CC:
[2017-09-06] MEDS: NovoLOG Insulin Flexpen SUBQ SCH (06:29)
[2017-09-06] MEDS: Analgesic Balm 15gm TOPIC SCH (06:43)
[2017-09-06 08:30] VITALS: BP 136/61
[2017-09-06] MEDS: Docusate 100mg cap ORAL SCH (09:19)
[2017-09-06 09:20] VITALS: BP 136/61
[2017-09-06] MEDS: Losartan 50mg tab ORAL SCH (09:20)
--- NOTE | 2017-09-06 09:22 | Pulmonology Progress Note ---
Assessment/Plan Assessment/Plan 1. Chest pain due to multiple PEs 2. Congestive heart failure. 3. Chronic kidney disease. 4. Diabetes. 5. Hyperlipidemia. Apixiban for anticoagulation; may need hematology to weigh in presently cr 2.1 heparin drip per Rx O2 venous duplex negative renal and cardiology following disc w RN check labs in AM dc when stable, may need o2 upon dc Subjective Interval Events: No new events; no labs today Constitutional: Reports: no symptoms HEENT: Repors: no symptoms Respiratory: Reports: dry cough, shortness of breath Cardiovascular: Reports: no symptoms Gastrointestinal/Abdominal: Reports: no symptoms Allergies: Coded Allergies: No Known Allergies (Unverified , 01/31/14) Objective Last 24 Hour Vital Signs Date Time Temp Pulse Resp B/P (MAP) Pulse Ox O2 Delivery O2 Flow Rate FiO2 09/06/17 08:30 98.1 78 20 136/61 94 Room Air 09/06/17 04:12 97.3 65 20 132/60 98 Nasal Cannula 2.0 09/06/17 03:42 66 09/06/17 00:12 69 09/06/17 00:10 98.4 70 20 132/68 98 Nasal Cannula 2.0 09/05/17 22:30 97.0 70 20 120/64 97 Nasal Cannula 2.0 09/05/17 21:26 Nasal Cannula 2.0 28 09/05/17 21:26 95 Nasal Cannula 2.0 28 09/05/17 20:30 97.0 70 20 120/64 Nasal Cannula 2.0 09/05/17 19:24 73 09/05/17 17:30 90 Room Air 09/05/17 16:00 97.5 76 20 131/70 95 Nasal Cannula 2.0 09/05/17 16:00 70 09/05/17 12:00 97.7 69 20 120/61 97 Nasal Cannula 09/05/17 12:00 64 09/05/17 09:53 98 Nasal Cannula 2.0 28 09/05/17 09:53 Nasal Cannula 2.0 28 General Appearance: no acute distress HEENT: normocephalic Respiratory/Chest: chest wall non-tender, decreased breath sounds Cardiovascular: normal peripheral pulses, regular rhythm Abdomen: normal bowel sounds, soft, non tender Current Medications Medications (Trade) Dose Ordered Sig/Mary Route PRN Reason Start Time Stop Time Status Last Admin Dose Admin Dextrose (Dextrose 50%) STAT PRN IV Hypoglycemia 08/28/17 02:30 09/27/17 02:29 Docusate Sodium (Colace) 100 mg TWICE A DAY ORAL 08/29/17 18:00 09/28/17 17:59 09/05/17 11:10 Furosemide (Lasix) 40 mg BID IV 09/03/17 09:00 10/03/17 08:59 09/05/17 17:31 Gabapentin (Neurontin) 300 mg THREE TIMES A DAY ORAL 08/28/17 09:00 09/27/17 08:59 09/05/17 17:30 Insulin Aspart (NovoLOG Mix 70/ 30) 62 units BIAC SUBQ 09/06/17 06:30 10/06/17 06:29 09/06/17 06:34 Insulin Aspart (NovoLOG) BEFORE MEALS AND HS SUBQ 08/28/17 06:30 09/27/17 06:29 09/06/17 06:29 Losartan Potassium (Cozaar) 100 mg DAILY ORAL 09/03/17 14:00 10/03/17 13:59 09/04/17 09:16 Magnesium Hydroxide (Mom) 30 ml DAILYPRN PRN ORAL Constipation 08/29/17 16:00 09/28/17 15:59 08/30/17 20:43 Menthol/Methyl Salicylate (Bengay) 1 applic FOUR TIMES A DAY TOPIC 09/01/17 13:00 10/01/17 12:59 09/06/17 06:43 Pantoprazole (Protonix) 40 mg ACBREAKFAST ORAL 08/30/17 06:30 09/27/17 08:59 09/06/17 06:23 Pravastatin Sodium (Pravachol) 40 mg BEDTIME ORAL 08/28/17 21:00 09/27/17 20:59 09/05/17 21:23 Rivaroxaban (Xarelto) 15 mg QPM ORAL 09/04/17 16:30 10/04/17 16:29 09/05/17 17:30 Pro Tan MD Sep 06, 2017 09:22
--- NOTE | 2017-09-07 03:45 | Progress Note ---
DATE: 09/06/2017 CARDIOLOGY PROGRESS NOTE SUBJECTIVE: The patient with less shortness of breath, still on nasal oxygen. No chest pain. Sleeping better. Myocardial perfusion scan was negative for flow-limiting disease. OBJECTIVE: VITAL SIGNS: Blood pressure 136/61, pulse 78, and respirations 20. No fevers. NECK: Supple. LUNGS: Clear. CARDIAC: Regular. ABDOMEN: Soft. EXTREMITIES: No edema. LABORATORY DATA: Creatinine 2.1. IMPRESSION: 1. Pulmonary emboli. 2. Chronic kidney disease. 3. Acute on chronic diastolic congestive heart failure, now compensated. 4. Hypertensive heart disease. 5. Insulin-requiring diabetes mellitus. PLAN: 1. Stable for outpatient management. 2. She will require oxygen. 3. She will require close monitoring of renal function. Her diuretic dosing will be titrated accordingly as such. She should remain on chronic anticoagulation at this time with apixaban. Rajesh Smith M.D. DR: KYREE JOB#: [id number] CC:
[2017-09-07] MEDS ORDERED: NOVOLIN 70100 UNIT/1 SQ (18:20)
[2017-09-07] MEDS ORDERED: CARDIAZEM CD240 MG PO (18:22)
[2017-09-07] MEDS ORDERED: LISINOPRIL5 MG ORAL (18:25)
[2017-09-07] MEDS ORDERED: ESTROPIPATE3 MG PO (18:29)
[2017-09-07] MEDS ORDERED: ZYRTEC10 MG ORAL (18:29)
[2017-09-07] MEDS ORDERED: PRAVASTATIN SOD40 M1 ORAL (18:39)
[2017-09-07] MEDS ORDERED: Miralax 17gm pkt ORAL PRN (21:00)
[2017-09-07] MEDS ORDERED: Docusate 100mg cap ORAL SCH (21:00)
[2017-09-07] MEDS ORDERED: Zolpidem 5mg tab ORAL PRN (21:00)
[2017-09-07] MEDS ORDERED: NovoLOG Insulin Flexpen SUBQ SCH (21:00)
[2017-09-07] MEDS ORDERED: Nitroglycerin Subl 0.4mg tab SL PRN (21:00)
[2017-09-07] MEDS ORDERED: Enoxaparin 40mg Inj SUBQ SCH (21:00)
[2017-09-07] MEDS ORDERED: traMADol 50mg tab ORAL PRN (21:00)
--- NOTE | 2017-09-09 12:12 | Cardiology Report ---
APPROVED REPORT EKG Measurement Heart [id number] ME [id number] Poor data quality, interpretation may be adversely affected Sinus rhythm with 1st degree AV block Abnormal ECG
--- NOTE | 2017-09-14 06:57 | Discharge Summary ---
Discharge Summary Hospital Course Date of Admission Aug 28, 2017 at 06:04 Date of Discharge Sep 06, 2017 at 10:35 Admitting Diagnosis chest pain HPI Phyllis Cameron is a 72 year old female who was admitted on Aug 28, 2017 at 06: 04 for Chest Pain Hospital Course Addendum: Order for DC was placed 09/05/17 but patient left 09/06/17 pending pulmonary clearance, ?need for 02 upon discharge --I have been assigned to complete a DC summary on this account, I was not involved with the patient's management.--GHASSAN Ellington- Discharge Discharge Disposition Patient was discharged to Home (01) Discharge Diagnoses: Jessica Castellano NP Sep 14, 2017 06:56
== END 2017-09-06 10:35 | disposition home or self-care (01) | DRG 175 ==
LOC: EMR 21:40 → EDBEDREQ 23:05 → 2E 08-28 01:04 → EDBEDREQ 08-28 01:14 → OBSVTOIN 08-28 06:04
DX: I26.99 Other pulmonary embolism without acute cor pulmonale (principal); I50.33 Acute on chronic diastolic (congestive) heart failure; N17.9 Acute kidney failure, unspecified; I13.0 Hypertensive heart and chronic kidney disease with heart failure and stage 1 through stage 4 chronic kidney disease, or unspecified chronic kidney disease; N39.0 Urinary tract infection, site not specified; E87.1 Hypo-osmolality and hyponatremia; E78.5 Hyperlipidemia, unspecified; E11.22 Type 2 diabetes mellitus with diabetic chronic kidney disease; N18.3 Chronic kidney disease, stage 3 (moderate); E11.21 Type 2 diabetes mellitus with diabetic nephropathy; E66.9 Obesity, unspecified; Z68.34 Body mass index [BMI] 34.0-34.9, adult; E83.42 Hypomagnesemia; E87.6 Hypokalemia
CPT/HCPCS: 36415; 71010; 76775; 78452; 78579; 78580; 80048; 80053; 80061; 81003; 82550; 82553; 82962; 83036; 83735; 83880; 84443; 84484; 85025; 85610; 85730; 87086; 87181; 90630; 93005; 93017; 93306; 93970; 94760; 99285; A9503; J1815

== ENCOUNTER 2017-09-07 17:12 | Inpatient (IN) | payer OTHER ==
[~2017-09-07] VITALS: Ht 160 cm; Wt 110.2 kg
[2017-09-07] VITALS (8 sets, daily range): BP systolic 80–129; BP diastolic 34–44
[~2017-09-07 17:12] MED LIST changes: +COZAAR50 MG ORAL; +FUROSEMIDE40 MG ORAL; +GABAPENTIN300 MG ORAL; +NOVOLOG MI100 UNIT/3 SUBQ; +PANTOPRAZOLE SO40 MG ORAL; +PRAVASTATIN SOD20 M1 ORAL; +TRAMADOL HCL50 MG ORAL; +XARELTO15 MG ORAL
--- NOTE | 2017-09-07 17:49 | Emergency Room Report ---
History of Present Illness General Chief Complaint: General Complaint Source: Patient, EMS Present Illness HPI Patient material female brought in by EMS after increased chest pain. Patient reported having increased left side chest pain to the patient had prior history of pulmonary embolism. She had recent negative nuclear scan of her heart. She was noted to have some baseline renal disease. The patient reported having increased pain. She had been taking diuretics for congestive heart failure. Patient was not noted to be taken beta blockers. Patient had been noted to be hypotensive in the field. She was started on transcutaneous pacing by EMS. EKG was interpreted by EMS as bradycardic atrial fibrillation. Patient noted have improvement with pacing in heart rate and blood pressure Allergies: Coded Allergies: No Known Allergies (Unverified , 01/31/14) Patient History Past Medical History: renal disease, other - pulmonary embolism Reviewed Nursing Documentation: PMH: Agreed, PSxH: Agreed Nursing Documentation-PMH Past Medical History: No History, Except For Hx Cardiac Problems: Yes - CHF Hx Hypertension: Yes Hx Asthma: No - PE Hx Diabetes: Yes Hx Cancer: No Hx Gastrointestinal Problems: No Hx Neurological Problems: No Review of Systems All Other Systems: limited - by acuity Physical Exam Vital Signs Date Time Temp Pulse Resp B/P (MAP) Pulse Ox O2 Delivery O2 Flow Rate FiO2 09/07/17 17:09 51 20 80/34 99 Room Air Sp02 EP Interpretation: abnormal General Appearance: alert, GCS 15, severe distress Neck: supple Respiratory: lungs clear, no rhonchi Cardiovascular #1: bradycardia Gastrointestinal: normal bowel sounds, non tender, soft Musculoskeletal: other - limited ROM of back Neurologic: normal inspection, alert, oriented x3 Psychiatric: normal inspection, judgement/insight normal Skin: pallor Procedures Critical Care Time Critical Care Time Patient had a critical medical condition which untreated could potentially result in life or limb threatening injury. Total critical care time excluding procedures approximately 45 minutes. Central Line Central Line : Consent: Emergent Central Line Lumen: triple Maximal Sterile Barrier Tech: yes cap, yes mask, yes sterile gown, yes sterile gloves, yes large sterile sheet, yes hand hygiene, yes chlorhexidine prep Central Line Postion: internal jugular (R) Anesthesia: Lidocaine - 8 cc's of anesthesia: 8 Complications: none Central Line Post Position: sutured, good blood return, position confirmed w / CXR Attempts: One Patient Tolerated: Well Complications: None Medical Decision Making Diagnostic Impression: Primary Impression: Heart block AV second degree Additional Impressions: Renal insufficiency Hypotension ER Course Patient presented for chest pain. Differential diagnosis included but was not limited to acute coronary syndrome, pulmonary embolism, pneumonia, aortic dissection, shingles, pneumothorax, aortic dissection, esophageal rupture among others. Because of complexity of patient's case laboratory testing and imaging studies were ordered.The patient was continued on transvenous pacing. Patient was given atropine 0.4 mg IV. The patient started on dopamine drip. Dr. Mitchell Corona is contacted for inpatient management was covering for Dr. Balbuena Labs Test 09/07/17 17:22 White Blood Count 11.0 K/UL (4.8-10.8) Red Blood Count 4.20 M/UL (4.20-5.40) Hemoglobin 11.5 G/DL (12.0-16.0) Hematocrit 38.4 % (37.0-47.0) Mean Corpuscular Volume 91 FL (80-99) Mean Corpuscular Hemoglobin 27.5 PG (27.0-31.0) Mean Corpuscular Hemoglobin Concent 30.0 G/DL (32.0-36.0) Red Cell Distribution Width 12.8 % (11.6-14.8) Platelet Count 230 K/UL (150-450) Mean Platelet Volume 9.2 FL (6.5-10.1) Neutrophils (%) (Auto) 73.1 % (45.0-75.0) Lymphocytes (%) (Auto) 17.4 % (20.0-45.0) Monocytes (%) (Auto) 5.1 % (1.0-10.0) Eosinophils (%) (Auto) 3.3 % (0.0-3.0) Basophils (%) (Auto) 1.2 % (0.0-2.0) Troponin I 0.001 ng/mL (0.000-0.056) EKG Diagnostic Results Rate: bradycardiac Rhythm: other - type II Mob[place] [address] Segments: no acute changes ASA given to the pt in ED: No Rhythm Strip Diag. Results EP Interpretation: yes Rhythm: no PVC's, no ectopy, other - bradycardia Last Vital Signs Date Time Temp Pulse Resp B/P (MAP) Pulse Ox O2 Delivery O2 Flow Rate FiO2 09/07/17 17:09 51 20 80/34 99 Room Air Status: unchanged Disposition: ADMITTED INPATIENT Condition: Critical Referrals: [facility],REFERR[facility] (PCP) Benedicto Cortez Sep 07, 2017 17:49
[2017-09-07 17:56] LABS: BASOPHILS % (AUTO) 1.2 % (0.0-2.0); EOSINOPHILS % (AUTO) 3.3 % (0.0-3.0); LYMPHOCYTES % (AUTO) 17.4 % (20.0-45.0); MEAN CORPUSCULAR HEMOGLOBIN 27.5 PG (27.0-31.0); MEAN CORPUSCULAR VOLUME 91 FL (80-99); MEAN PLATELET VOLUME 9.2 FL (6.5-10.1); MONOCYTES % (AUTO) 5.1 % (1.0-10.0); NEUTROPHILS % (AUTO) 73.1 % (45.0-75.0); PLATELET COUNT 230 K/UL (150-450); RED CELL DISTRIBUTION WIDTH 12.8 % (11.6-14.8)
[2017-09-07] MEDS ORDERED: Atropine Sulfate 0.4mg/ml inj IVP ONE (18:15)
[2017-09-07 18:17] LABS: ALANINE AMINOTRANSFERASE 21 U/L (12-78); ALBUMIN/GLOBULIN RATIO 0.8 (1.0-2.7); ANION GAP 10 mmol/L (5-15); ASPARTATE AMINO TRANSFERASE 25 U/L (15-37); CALCIUM 9.1 MG/DL (8.5-10.1); CARBON DIOXIDE 28 MMOL/L (21-32); CHLORIDE 101 MMOL/L (98-107); CREATININE 2.5 MG/DL (0.55-1.30); SODIUM 139 MMOL/L (136-145)
[2017-09-07] MEDS ORDERED: NOVOLIN 70100 UNIT/1 SQ (18:20)
[2017-09-07] MEDS ORDERED: CARDIAZEM CD240 MG PO (18:22)
[2017-09-07] MEDS ORDERED: LISINOPRIL5 MG ORAL (18:25)
[2017-09-07] MEDS ORDERED: ZYRTEC10 MG ORAL (18:29)
[2017-09-07] MEDS ORDERED: ESTROPIPATE3 MG PO (18:29)
[2017-09-07] MEDS ORDERED: Calcium Gluconate 1gm/10ml vial IVP ONE (18:30)
[2017-09-07] MEDS ORDERED: PRAVASTATIN SOD40 M1 ORAL (18:39)
[2017-09-07] MEDS ORDERED: Sodium Bicarbonate 50ml Carp IV ONE (19:00)
[2017-09-07] MEDS ORDERED: DOPamine 400mg/250ml 250 ML IV SCH ×2 (20:15→22:00)
[2017-09-07] MEDS ORDERED: Nitroglycerin Subl 0.4mg tab SL PRN (21:30)
[2017-09-07] MEDS ORDERED: Zolpidem 5mg tab ORAL PRN (21:30)
[2017-09-07] MEDS ORDERED: Miralax 17gm pkt ORAL PRN (21:30)
[2017-09-08] VITALS (40 sets, daily range): BP systolic 79–139; BP diastolic 34–77
[2017-09-08] MEDS: DOPamine 400mg/250ml 250 ML IV SCH ×3 (00:38→06:13)
[2017-09-08 04:49] LABS: BASOPHILS % (AUTO) 0.8 % (0.0-2.0); EOSINOPHILS % (AUTO) 1.8 % (0.0-3.0); LYMPHOCYTES % (AUTO) 21.8 % (20.0-45.0); MEAN CORPUSCULAR HEMOGLOBIN 27.5 PG (27.0-31.0); MEAN CORPUSCULAR HGB CONC 30.4 G/DL (32.0-36.0); MEAN CORPUSCULAR VOLUME 90 FL (80-99); MEAN PLATELET VOLUME 9.5 FL (6.5-10.1); MONOCYTES % (AUTO) 6.1 % (1.0-10.0); NEUTROPHILS % (AUTO) 69.6 % (45.0-75.0); PLATELET COUNT 266 K/UL (150-450); RED BLOOD COUNT 4.33 M/UL (4.20-5.40); RED CELL DISTRIBUTION WIDTH 12.8 % (11.6-14.8); WHITE BLOOD COUNT 14.7 K/UL (4.8-10.8)
[2017-09-08] MEDS ORDERED: DOPamine 400mg/250ml 250 ML IV SCH (05:00)
[2017-09-08 06:22] LABS: ALANINE AMINOTRANSFERASE 25 U/L (12-78); ALBUMIN/GLOBULIN RATIO 0.7 (1.0-2.7); ANION GAP 11 mmol/L (5-15); ASPARTATE AMINO TRANSFERASE 25 U/L (15-37); CALCIUM 8.8 MG/DL (8.5-10.1); CARBON DIOXIDE 26 MMOL/L (21-32); CHLORIDE 101 MMOL/L (98-107); CREATININE 2.8 MG/DL (0.55-1.30); MAGNESIUM 1.8 MG/DL (1.8-2.4); POTASSIUM 4.7 MMOL/L (3.5-5.1); SODIUM 138 MMOL/L (136-145); THYROID STIMULATING HORMONE 0.539 uiU/mL (0.360-3.740); TOTAL PROTEIN 7.5 G/DL (6.4-8.2)
[2017-09-08] MEDS: Insulin NovoLOG Flexpen S/S (Ins resistant) SUBQ SCH ×4 (06:24→20:56)
[2017-09-08] MEDS: Docusate 100mg cap ORAL SCH ×3 (08:58→21:00)
[2017-09-08] MEDS ORDERED: Enoxaparin 40mg Inj SUBQ SCH (09:00)
[2017-09-08] MEDS ORDERED: Aspirin EC 81mg tab ORAL SCH (09:00)
[2017-09-08] MEDS: Enoxaparin 60mg Inj SUBQ SCH ×2 (11:00→20:55)
--- NOTE | 2017-09-08 12:00 | Diagnostic Imaging Report ---
Indication: Dyspnea Comparison: 08/31/17 A single view chest radiograph was obtained. Findings: Prominent pulmonary vascularity and interstitial opacities with identified. Cardiomegaly noted. Bones are unremarkable. Impression: Mild interstitial edema
--- NOTE | 2017-09-08 12:12 | Diagnostic Imaging Report ---
Indication: Line placement Comparison: 09/07/17 A single view chest radiograph was obtained. Findings: Right jugular central line is present. The tip is in the SVC/right atrial junction. There is no pneumothorax. There is no change otherwise. Impression: Right jugular line in good position. No pneumothorax.
--- NOTE | 2017-09-08 15:57 | Consultation ---
Consult Note Assessment/Plan #[id number] bradycardia recent dx pe hypoxemia cp MALIK THAKKAR DO Sep 08, 2017 15:57
--- NOTE | 2017-09-08 17:17 | Cardiology Report ---
APPROVED REPORT EKG Measurement Heart [id number] Sinus bradycardia with 1st degree AV block with premature atrial complexes Otherwise normal ECG
--- NOTE | 2017-09-08 19:45 | History and Physical Report ---
DATE OF ADMISSION: 09/07/2017 HISTORY AND PHYSICAL AND INTENSIVE CARE UNIT NOTE CHIEF COMPLAINT: The patient is a 72-year-old, lady who presents with hypotension, bradycardia, Wenckebach. HISTORY OF PRESENT ILLNESS: The patient was recently hospitalized at [place] with chest pain and a negative stress test, and imaging consistent with pulmonary emboli, for which she was discharged on Xarelto. She also had CHF, which has improving and chronic kidney disease stage 3 on her past admission. She was discharged home, but comes in now with bradycardia, hypotension, and weakness. She apparently restarted diltiazem at home, which she was not taking at [place] and discharge instructions did not include that, but she had it at home from prior doctors and resumed it by mistake. This is the likely cause of her arrhythmia. SURGERIES: Gallbladder and hysterectomy for benign disease. ALLERGIES: None known. MEDICATIONS: Discharge medications included 70/30 insulin 62 units b.i.d., furosemide 40 mg b.i.d., losartan 100 mg daily, Xarelto 15 mg daily, aspirin 81 mg daily, and gabapentin 300 mg t.i.d. HABITS: She is a former smoker and quit. SYSTEM REVIEW: HEAD, EYES, EARS, NOSE, AND THROAT: She has mild decreased visual acuity with no known cataracts or diabetic retinopathy. Hearing is mildly diminished. ENDOCRINE: Long-standing diabetes, likely more than 20 years. She also was treated for thyroid in the past, but not for many years. PULMONARY: No asthma, TB, chronic cough, or recent pulmonary emboli. She is not short of breath at this time. CARDIAC: Recurrent chest pain with a negative stress test recently, recent mild diastolic CHF. GASTROINTESTINAL: She has some intermittent heartburn. No GI bleeding or definite ulcers. GENITOURINARY: She has had multiple UTIs in the past. No hematuria or kidney stones. NEUROLOGIC: No CVA or seizures. MUSCULOSKELETAL: Mild arthralgias. PHYSICAL EXAMINATION: GENERAL: The patient is seen in the ICU. She is alert, chronically ill-appearing, but in no acute distress. VITAL SIGNS: Blood pressure 111/44, pulse 48, respirations 16, and O2 saturation 99% on 3 liters. HEAD, EYES, EARS, NOSE, AND THROAT: Sclerae are nonicteric. Ocular motions intact in all directions. Oral mucosa moist. NECK: No adenopathy or thyroid enlargement. LUNGS: Clear. HEART: Regular rhythm. Normal S1 and S2. I hear no murmur or rub. ABDOMEN: Obese and soft. No organomegaly or masses. EXTREMITIES: Trace edema. No inflamed joints. NEUROLOGIC: She is alert and oriented. Cranial nerves are intact. PERTINENT LABORATORIES: White count 14.7 and hemoglobin 11.9. Sodium 138, potassium 4.7, BUN 53, creatinine 2.8, and glucose 266. Troponin 0. Albumin 3.0. IMPRESSION: 1. Bradycardia and hypotension, likely secondary to diltiazem. 2. Recent diagnosis of pulmonary emboli. 3. Chronic congestive heart failure, diastolic dysfunction. 4. Chronic kidney disease stage 3, possibly stage 4. 5. Acute kidney injury, rising creatinine likely from diuretic use. PLAN: The patient was given fluids and dopamine for hypotension. Her blood pressure is resolving. We will observe her rhythm in view of the fact that there is severe bradycardia and Wenckebach, possibly from diltiazem. Cardiology consultation is requested. We will continue on anticoagulants. I will give her Lovenox now until we are clear whether or not she needs a procedure such as pacemaker. Mitchell Corona M.D. DR: ASIF JOB#: [id number] CC:
[2017-09-08] MEDS: traMADol 50mg tab ORAL PRN (19:57)
[2017-09-09] VITALS (9 sets, daily range): BP systolic 105–123; BP diastolic 35–53
--- NOTE | 2017-09-09 03:30 | Consultation ---
DATE OF CONSULTATION: 09/08/2017 PULMONARY CRITICAL CARE CONSULTATION REASON FOR CONSULTATION: Shortness of breath. HISTORY OF PRESENT ILLNESS: The patient was discharged from the medical facility on Saturday. Apparently, was not feeling well, taking her medications at home as prescribed, noted to be generally weak with decreased p.o. intake, chest discomfort. No nausea, vomiting, or diarrhea. Did feel as though she was going to pass out. EMS was called. She was found to be bradycardic. Transcutaneous pacing pads were placed on the patient and she was paced. In the emergency room, she was found to be bradycardic in the 40s and described as atrial fibrillation. Her first EKG did demonstrate sinus bradycardia with first-degree AV block. The patient was also found to be hypotensive. ER doctor gave 500 mL of normal saline and started her on a dopamine drip. PAST MEDICAL HISTORY: Includes pulmonary embolism, on anticoagulation, diabetes, and hypertension. SOCIAL HISTORY: Negative for tobacco, alcohol, or drugs. FAMILY HISTORY: Noncontributory. REVIEW OF SYSTEMS: Previously negative for chest pain, short of breath, nausea, vomiting, diarrhea, fevers, chills, or weight changes. PHYSICAL EXAMINATION: GENERAL: At the time of my exam, she is alert. She is oriented. No acute respiratory distress. VITAL SIGNS: Pulse is 59, respirations 20, and blood pressure 111/46. HEENT: Head: Normocephalic and atraumatic. Oropharynx is moist. Nasal mucosa is moist. NECK: Supple. No lymphadenopathy or thyromegaly. LUNGS: Decreased at the bases. No wheezes present. HEART: Bradycardic rate and rhythm with no murmur. ABDOMEN: Soft, obese, and nontender. Positive bowel sounds. EXTREMITIES: No edema. LABORATORY AND DIAGNOSTIC DATA: Her white count 14.7, her hemoglobin is 11.9, and her platelets are 256,000. Sodium 138, potassium 4.7, chloride 101, bicarbonate 26, BUN 53, creatinine 2.8, and glucose is 266. Her troponins are negative. Her chest x-ray in the emergency room was negative. Her EKG showed sinus bradycardia with first-degree AV block. ASSESSMENT: Symptomatic bradycardia, possibly secondary to medications. The patient is on Cardizem, history pulmonary embolism, on apixaban, gastroesophageal reflux disease, diabetes, and hypertension. PLAN: Continue to monitor in the intensive care unit. DVT prophylaxis. Nebulizers. O2 to maintain saturations greater 92%. Aspiration precautions. Again, holding Cardizem. Monitor her heart rate. We will follow up with cardiac recommendations. Greater than 35 minutes of critical care time spent with the patient reviewing the medical record, documenting the current medical record, discussing with the ICU staff, and we will continue to follow the patient. Mila Mandujano D.O. DR: Óscar JOB#: [id number] CC:
--- NOTE | 2017-09-09 04:00 | Progress Note ---
DATE: 09/07/2017 CARDIOLOGY, CRITICAL CARE NOTE SUBJECTIVE: This female was brought back to the emergency room, having been discharged home yesterday because of increasing shortness of breath, chest pain, and dizziness. She was seen by paramedics and noted to be hypotensive in the field. She also was noted to be bradycardic. Transcutaneous pacing was initiated by paramedics. In the emergency room, heart rate in the 40s was detected and blood pressure 80/34. The patient was on diltiazem, which she had at home from previous doctors. I have reviewed her discharge recommendations and medication list from yesterday and did not see diltiazem on that list nor were any beta-blockers on the discharge medication list. The patient was hospitalized for chest pain and found to have pulmonary emboli. She was started on anticoagulation. Myocardial perfusion scan was negative for any flow-limiting disease. The patient was treated for acute on chronic renal insufficiency and congestive heart failure as well. PHYSICAL EXAMINATION: VITAL SIGNS: Vitals as noted. HEENT: Oropharynx clear. NECK: Supple. No carotid sinus hypersensitivity. LUNGS: Clear. CARDIAC: Regular rhythm. Slow rate. Normal S1, S2. ABDOMEN: Soft. EXTREMITIES: With trace dependent edema. The triple lumen site in the right internal jugular region is without bleeding. IMPRESSION: 1. Cardiogenic shock. 2. Bradyarrhythmia, secondary to diltiazem and exacerbated by mild hyperkalemia with potassium of 5. 3. Recent pulmonary emboli. 4. Chronic kidney disease, stage IV. 5. Chronic diastolic congestive heart failure. PLAN: 1. Volume resuscitation. 2. Pressor support. 3. Obviously, we will not resume diltiazem. 4. External pacemaker at bedside. 5. Atropine at bedside. 6. Reassess for pacemaker if fails to improve heart rate off diltiazem. It should be noted that the preparation she took was a sustained released type. Rajesh Smith M.D. : RUSLAN JOB#: [id number] CC:
[2017-09-09] MEDS: traMADol 50mg tab ORAL PRN (04:18)
--- NOTE | 2017-09-09 05:00 | Progress Note ---
DATE: 09/08/2017 CARDIOLOGY CRITICAL CARE NOTE SUBJECTIVE: The patient remains in the intensive care unit. Her heart rhythm has improved. Last night, she had Wenckebach now has a first-degree AV block with bradycardia. She has not received the Cardizem since yesterday morning. OBJECTIVE: VITAL SIGNS: Blood pressure 100/60, pulse 55, and respiratory rate 18. NECK: Supple. Right IJ line site is clean and dry. LUNGS: Clear. CARDIAC: Regular rhythm and rate. Normal S1 and S2. ABDOMEN: Soft. EXTREMITIES: No edema. LABORATORY DATA: Reviewed. IMPRESSION: 1. Cardiogenic shock, recovering. 2. Bradyarrhythmia due to diltiazem. 3. Pulmonary emboli. 4. Coagulopathy due to apixaban. 5. Hypertensive heart disease. 6. Chronic kidney disease. PLAN: 1. No role for diltiazem. 2. No beta-blockers. 3. The patient was counseled never to resume this drug again. 4. Continue cardioembolic prophylaxis. 5. Taper off pressors as able. 6. No indication for permanent pacemaker at this time. 7. Follow up thyroid panel results. 8. Electrolytes reviewed. 9. Cautious hydration. 10. Avoid diuretics. 11. Monitor cardiorenal function. 12. Condition remains critical. 13. Prognosis improved. Rajesh Smith M.D. DR: KYREE JOB#: [id number] CC:
[2017-09-09 05:16] LABS: EOSINOPHILS % (AUTO) 6.8 % (0.0-3.0); MEAN CORPUSCULAR HEMOGLOBIN 28.7 PG (27.0-31.0); MEAN CORPUSCULAR HGB CONC 31.3 G/DL (32.0-36.0); MEAN CORPUSCULAR VOLUME 92 FL (80-99); MONOCYTES % (AUTO) 6.1 % (1.0-10.0); NEUTROPHILS % (AUTO) 46.1 % (45.0-75.0); PLATELET COUNT 214 K/UL (150-450); RED BLOOD COUNT 3.55 M/UL (4.20-5.40); RED CELL DISTRIBUTION WIDTH 12.8 % (11.6-14.8); WHITE BLOOD COUNT 8.1 K/UL (4.8-10.8)
[2017-09-09] MEDS: DOPamine 400mg/250ml 250 ML IV SCH (05:48)
[2017-09-09 06:23] LABS: ALANINE AMINOTRANSFERASE 25 U/L (12-78); ALBUMIN/GLOBULIN RATIO 0.6 (1.0-2.7); ANION GAP 3 mmol/L (5-15); ASPARTATE AMINO TRANSFERASE 17 U/L (15-37); CALCIUM 8.5 MG/DL (8.5-10.1); CARBON DIOXIDE 32 MMOL/L (21-32); CHLORIDE 107 MMOL/L (98-107); CREATININE 2.2 MG/DL (0.55-1.30); MAGNESIUM 1.9 MG/DL (1.8-2.4); PHOSPHORUS 3.3 MG/DL (2.5-4.9); POTASSIUM 4.3 MMOL/L (3.5-5.1); SODIUM 142 MMOL/L (136-145); TOTAL PROTEIN 6.6 G/DL (6.4-8.2)
[2017-09-09] MEDS: NovoLOG Insulin Flexpen SUBQ SCH ×2 (06:30→12:55)
[2017-09-09] MEDS ORDERED: Enoxaparin 60mg Inj SUBQ SCH (09:00)
[2017-09-09] MEDS ORDERED: Docusate 100mg cap ORAL SCH (09:00)
--- NOTE | 2017-09-09 12:18 | Pulmonology Progress Note ---
Assessment/Plan Assessment/Plan 1. Cardiogenic shock, recovering. 2. Bradyarrhythmia due to diltiazem. 3. Pulmonary emboli. 4. Coagulopathy due to apixaban. 5. Hypertensive heart disease. 6. Chronic kidney disease. no arrhythmia chest pain due to PE, explained it will resolve in time change to PO Xarelto dc today if ambulating well check RA sat Subjective Respiratory: Denies: shortness of breath Cardiovascular: Reports: chest pain Allergies: Coded Allergies: No Known Allergies (Unverified , 01/31/14) Objective Last 24 Hour Vital Signs Date Time Temp Pulse Resp B/P (MAP) Pulse Ox O2 Delivery O2 Flow Rate FiO2 09/09/17 11:53 97.0 62 19 117/53 93 Room Air 09/09/17 08:00 98.5 63 20 116/53 97 Nasal Cannula 1.0 09/09/17 08:00 64 09/09/17 06:00 64 20 108/35 100 Nasal Cannula 1.0 09/09/17 05:48 119/40 09/09/17 05:17 98.0 09/09/17 05:00 60 20 119/40 100 Nasal Cannula 1.0 09/09/17 04:00 60 09/09/17 04:00 97.8 58 16 112/48 100 Nasal Cannula 1.0 09/09/17 03:00 54 20 118/44 100 Nasal Cannula 1.0 09/09/17 02:00 58 20 123/46 100 Nasal Cannula 1.0 09/09/17 01:00 64 20 105/35 100 Nasal Cannula 1.0 09/09/17 00:00 60 09/09/17 00:00 98.0 57 16 110/50 100 Nasal Cannula 1.0 09/08/17 23:00 63 20 126/42 100 Nasal Cannula 1.0 09/08/17 22:00 58 20 105/46 100 Nasal Cannula 1.0 09/08/17 21:00 57 20 105/42 100 Nasal Cannula 1.0 09/08/17 20:00 97.8 60 16 103/40 100 Nasal Cannula 1.0 09/08/17 20:00 54 09/08/17 19:00 55 20 91/44 100 Room Air 09/08/17 18:00 56 20 125/47 100 Room Air 09/08/17 17:00 68 20 108/47 99 Room Air 10/22/17 16:00 69 09/08/17 16:00 97.8 57 16 102/45 100 Room Air 09/08/17 15:00 59 20 111/46 97 Room Air 09/08/17 14:30 59 20 97/44 100 Room Air 09/08/17 14:00 59 20 101/38 92 Room Air 09/08/17 13:30 60 20 92/44 92 Room Air 09/08/17 13:00 55 20 94/41 93 Room Air 09/08/17 12:30 68 20 120/52 100 Nasal Cannula 1.0 General Appearance: no acute distress Respiratory/Chest: lungs clear Cardiovascular: normal rate Abdomen: soft, non tender Extremities: no edema Laboratory Tests 09/09/17 04:00: White Blood Count 8.1, Red Blood Count 3.55L, Hemoglobin 10.2L, Hematocrit 32.5L , Mean Corpuscular Volume 92, Mean Corpuscular Hemoglobin 28.7, Mean Corpuscular Hemoglobin Concent 31.3L, Red Cell Distribution Width 12.8, Platelet Count 214, Mean Platelet Volume 9.0, Neutrophils (%) (Auto) 46.1, Lymphocytes (%) (Auto) 40.0, Monocytes (%) (Auto) 6.1, Eosinophils (%) (Auto) 6.8H, Basophils (%) (Auto) 1.0, Sodium Level 142, Potassium Level 4.3, Chloride Level 107, Carbon Dioxide Level 32, Anion Gap 3L, Blood Urea Nitrogen 42H, Creatinine 2.2H, Estimat Glomerular Filtration Rate , Glucose Level 73#L, Calcium Level 8.5, Phosphorus Level 3.3, Magnesium Level 1.9, Total Bilirubin 0.5, Aspartate Amino Transf (AST/SGOT) 17, Alanine Aminotransferase (ALT/SGPT) 25, Alkaline Phosphatase 74, Troponin I 0.000, Total Protein 6.6, Albumin 2.6L, Globulin 4.0, Albumin/Globulin Ratio 0.6L Current Medications Medications (Trade) Dose Ordered Sig/Mary Route PRN Reason Start Time Stop Time Status Last Admin Dose Admin Acetaminophen (Tylenol) 650 mg Q4H PRN ORAL FEVER 09/09/17 09:30 10/07/17 21:29 Acetaminophen (Tylenol) 650 mg Q4H PRN ORAL Mild Pain (Pain Scale 1-3) 09/09/17 09:30 10/07/17 21:29 Chlorhexidine Gluconate (Desiree-Hex 2%) 1 applic BEDTIME TOPIC 09/09/17 22:00 10/09/17 21:59 Dextrose (Dextrose 50%) 50 ml STAT PRN IV HYPOGLYCEMIA 09/09/17 21:30 10/07/17 21:29 Docusate Sodium (Colace) 100 mg Q12HR ORAL 09/09/17 09:00 10/08/17 08:59 09/09/17 09:18 Gabapentin (Neurontin) 300 mg TID ORAL 09/09/17 09:00 10/08/17 08:59 09/09/17 09:18 Insulin Aspart (NovoLOG Mix 70/ 30) 62 units BIAC SUBQ 09/09/17 06:30 10/08/17 06:29 09/09/17 09:21 Insulin Aspart (NovoLOG) No Dose BEFORE MEALS AND HS SUBQ 09/09/17 06:30 10/07/17 21:44 Ondansetron HCl (Zofran) 4 mg Q6H PRN IV Nausea & Vomiting 09/09/17 09:30 10/07/17 21:29 Pantoprazole (Protonix) 40 mg DAILY ORAL 09/09/17 09:00 10/08/17 08:59 09/09/17 09:18 Polyethylene Glycol (Miralax) 17 gm DAILYPRN PRN ORAL CONSTIPATION 1ST LINE AGENT 09/09/17 21:30 10/07/17 21:29 Pravastatin Sodium (Pravachol) 40 mg BEDTIME ORAL 09/09/17 21:00 10/08/17 20:59 Ranitidine HCl (Zantac) 150 mg TWICE A DAY ORAL 09/09/17 09:00 10/08/17 10:59 09/09/17 09:19 Rivaroxaban (Xarelto) 15 mg BID ORAL 09/09/17 18:00 10/09/17 17:59 Tramadol HCl (Ultram) 50 mg TIDPRN PRN ORAL PAIN 4-10 09/09/17 21:30 09/14/17 21:29 Zolpidem Tartrate (Ambien) 5 mg HSPRN PRN ORAL Insomnia 09/09/17 21:30 09/14/17 21:29 MARISOL ORTIZ Sep 09, 2017 12:18
[2017-09-09] MEDS ORDERED: XARELTO10 MG ORAL (12:43)
[2017-09-09] MEDS ORDERED: Xarelto 15mg tab ORAL SCH (18:00)
[2017-09-09] MEDS ORDERED: Zolpidem 5mg tab ORAL PRN (21:30)
[2017-09-09] MEDS ORDERED: traMADol 50mg tab ORAL PRN (21:30)
[2017-09-09] MEDS ORDERED: Miralax 17gm pkt ORAL PRN (21:30)
[2017-09-09] MEDS ORDERED: Dyna-Hex 2% Top Sol 2oz TOPIC SCH ×2 (22:00)
--- NOTE | 2017-09-09 23:45 | Progress Note ---
DATE: 09/09/2017 CARDIOLOGY PROGRESS NOTE SUBJECTIVE: The patient is off pressors. Blood pressure is stabilized at 116/53, pulse 63, and respiratory rate 20. Monitored rhythm remains sinus with first-degree AV block. No pauses. She has been off Cardizem extended release for 48 hours. OBJECTIVE: LUNGS: Bilateral breath sounds. HEART: Regular rhythm and rate. Normal S1 and S2. ABDOMEN: Soft. EXTREMITIES: No edema. IMPRESSION: 1. Chest pain due to pulmonary emboli. 2. Recent myocardial perfusion scan was negative. 3. Bradyarrhythmias due to use of diltiazem, now resolved off drug. 4. Apixaban-associated coagulopathy. 5. Hypertensive heart disease. 6. Cardiogenic shock, resolved. PLAN: 1. Stable for outpatient management. 2. Discharge medication regimen reviewed in detail. 3. The patient was advised not to take diltiazem and reinforced that it has not been on her discharge medication list in the past or presently. Rajesh Smith M.D. DR: KYREE JOB#: [id number] CC:
--- NOTE | 2017-09-10 08:47 | Cardiology Report ---
APPROVED REPORT EKG Measurement Heart [id number] Sinus bradycardia with 1st degree AV block Otherwise normal ECG
--- NOTE | 2017-09-10 10:44 | Discharge Summary ---
Discharge Summary Hospital Course Date of Admission Sep 07, 2017 at 18:04 Date of Discharge Sep 09, 2017 at 15:37 Admitting Diagnosis complete heart block HPI Phyllis Cameron is a 72 year old female who was admitted on Sep 07, 2017 at 18: 04 for Complete Heart Block Hospital Course dc summary #[id number] Discharge Medications Continued Medications: Estropipate (Estropipate) 3 Mg Tablet 3 MG PO, TAB Furosemide* (Lasix*) 40 Mg Tablet 40 MG ORAL TWICE A DAY for 30 Days, #60 TAB 0 Refills Gabapentin* (Gabapentin*) 300 Mg Capsule 300 MG ORAL THREE TIMES A DAY, CAP 0 Refills Hum Insulin Nph/Reg Insulin Hm (Novolin 70-30 100 Unit/Ml Vial) 100 Unit/1 Ml Vial 62 UNITS SQ BIDAC Lisinopril (Lisinopril*) 5 Mg Tablet 5 MG ORAL DAILY, TAB Pantoprazole* (Pantoprazole*) 40 Mg Tablet.dr 40 MG ORAL DAILY, TAB Pravastatin Sod (Pravastatin Sod) 40 Mg Tablet 40 MG ORAL BEDTIME, TAB Rivaroxaban (Xarelto*) 10 Mg Tablet 15 MG ORAL BID, #30 TAB 0 Refills Tramadol Hcl* (Ultram*) 50 Mg Tablet 50 MG ORAL TID PRN for For Pain, #30 TAB 0 Refills Discharge Condition Upon Discharge: stable Discharge Disposition Patient was discharged to Home () Discharge Diagnoses: Discharge Instructions Discharge Instructions Special Instructions I have been assigned to complete a D/C Summary on this account. I was not involved in the patient management Jewell Johnson NP (Vanchtein) Sep 10, 2017 10:44
--- NOTE | 2017-09-11 | Discharge Summary 2 SIG ---
DATE OF ADMISSION: 09/07/2017 DATE OF DISCHARGE: 09/09/2017 REASON FOR ADMISSION: 72-year-old female presented with hypotension and bradycardia. The patient was recently hospitalized at [facility] with chest pain , had negative stress test. Imaging on that admission was consistent with pulmonary emboli . Patient was discharged home on Xarelto. The patient has a history of CHF with chronic diastolic dysfunction as well as chronic kidney disease stage 4. She came with bradycardia, hypotension, generalized weakness. Apparently, she restarted Cardizem at home which she was not taking in [place] and the discharge instruction did not include this medication. However at home she had this medication from prior doctors and resumed it by mistake. HOSPITAL STAY: The patient was admitted to ICU. Blood pressure was low. She was started on pressors and fluid resuscitation. The patient was closely observed. [employer] clsoely followed. The patient was restarted on anticoagulation with Lovenox due to possible pending pacemaker placement. External pacemaker along with atropine were at the bedside. EKG revealed sinus bradycardia with first-degree AV block. The need for pacemaker was reassessed. Blood pressure was responded to pressor. Started to wean down pressors, and eventually discontinued. Obviously Cardizem and beta flex were discontinued. The patient should never resume them. Heart rate improved. Per cardiology, there was no indication for permanent pacemaker. The patient was counseled never resume Cardizem or beta flex. Blood pressure was stable without pressors. [employer] recommended cautious hydration and avoid diuretic. Monitor cardiorenal parameters and cardiorenal function. The patient developed chest pain likely secondary to recently diagnosed PE. Recent stress test (on previous admission) was negative. Troponin was negative x3. Bradyarrhythmia resolved. Cardiogenic shock initially present, resolved. Supplemental oxygen was titrated to keep saturation above 92%. Prior to discharge, the patient was on room air , pulse oximetry was stable. Pulmonary toilet provided as needed. Aspiration precaution were maintained. TSH was within normal limits. Pro-BNP -159. Initial BUN -52 and creatinine- 2.5 down to BUN -42 and creatinine- 2.2. The patient was stable for discharge home, continue anticoagulation with Xarelto. . FINAL DIAGNOSES: 1. Cardiogenic shock. 2. Bradyarrhythmia secondary to diltiazem. 3. Recently diagnosed pulmonary emboli. 4. Congestive heart failure with diastolic dysfunction. 5. Chronic kidney disease stage 3, possibly stage 4. 6. Acute kidney injury with rise in creatinine secondary to diuretic, resolved. 7. Hypertensive heart disease. DISCHARGE MEDICATIONS: See medication reconciliation list. DISCHARGE INSTRUCTIONS: The patient discharged home. FOLLOWUP: Followup with the primary medical doctor next week. Rolando Balbuena M.D. I have been assigned to dictate discharge summary on this account and I was not involved in the patient's management. Jewell Johnson ([facility] HospitalNorah NGemmaPGemma DR: Darwin JOB#: [id number] CC: COBY
== END 2017-09-09 15:37 | disposition home or self-care (01) | DRG 291 ==
LOC: EDBD 17:12 → EMR 17:30 → ICU 18:04 → ENRESERV 19:20 → EDBEDREQ 19:22 → 2W 09-09 06:16
DX: I13.0 Hypertensive heart and chronic kidney disease with heart failure and stage 1 through stage 4 chronic kidney disease, or unspecified chronic kidney disease (principal); R57.0 Cardiogenic shock; I26.99 Other pulmonary embolism without acute cor pulmonale; N18.4 Chronic kidney disease, stage 4 (severe); N17.9 Acute kidney failure, unspecified; E11.22 Type 2 diabetes mellitus with diabetic chronic kidney disease; I44.1 Atrioventricular block, second degree; I50.32 Chronic diastolic (congestive) heart failure; I44.0 Atrioventricular block, first degree; Z86.711 Personal history of pulmonary embolism; Z79.01 Long term (current) use of anticoagulants; N18.9 Chronic kidney disease, unspecified; R00.1 Bradycardia, unspecified; T46.1X5A Adverse effect of calcium-channel blockers, initial encounter; Z87.891 Personal history of nicotine dependence; Z79.4 Long term (current) use of insulin; E87.5 Hyperkalemia
CPT/HCPCS: 36415; 71010; 80053; 82550; 82553; 82962; 83735; 83880; 84100; 84443; 84484; 85025; 87081; 93005; 99291; J1815; J2405

== ENCOUNTER 2018-09-08 19:27 | Emergency (ER) | payer MEDICARE, OTHER ==
[~2018-09-08] VITALS: Ht 175.3 cm; Wt 106.6 kg
[~2018-09-08 19:27] MED LIST changes: +CARDIAZEM CD240 MG PO; +ESTROPIPATE3 MG PO; +LISINOPRIL5 MG ORAL; +NOVOLIN 70100 UNIT/1 SQ; +PRAVASTATIN SOD40 M1 ORAL; +XARELTO10 MG ORAL; +ZYRTEC10 MG ORAL
[2018-09-08 19:52] VITALS: BP 142/67
[2018-09-08 20:57] LABS: ANION GAP 8 mmol/L (5-15); BLOOD UREA NITROGEN 33 mg/dL (7-18); CALCIUM 9.4 MG/DL (8.5-10.1); CARBON DIOXIDE 29 MMOL/L (21-32); CHLORIDE 99 MMOL/L (98-107); CREATININE 2.3 MG/DL (0.55-1.30); POTASSIUM 4.3 MMOL/L (3.5-5.1); SODIUM 136 MMOL/L (136-145)
[2018-09-08 21:01] LABS: APPEARANCE,URINE SLIGHTLY CLOUDY; BILIRUBIN, URINE NEGATIVE (NEGATIVE); COLOR,URINE PALE YELLOW; GLUCOSE, URINE (UA) NEGATIVE (NEGATIVE); KETONES,URINE NEGATIVE (NEGATIVE); LEUKOCYTE ESTERASE ,URINE 3+ (NEGATIVE); NITRITE,URINE NEGATIVE (NEGATIVE); PH,URINE 6 (4.5-8.0); PROTEIN,URINE 3+ (NEGATIVE); UROBILINOGEN,URINE NORMAL MG/DL (0.0-1.0)
[2018-09-08 21:01] LABS: BASOPHILS % (AUTO) 1.7 % (0.0-2.0); EOSINOPHILS % (AUTO) 3.7 % (0.0-3.0); HEMATOCRIT 35.9 % (37.0-47.0); HEMOGLOBIN 10.8 G/DL (12.0-16.0); LYMPHOCYTES % (AUTO) 26.2 % (20.0-45.0); MEAN CORPUSCULAR VOLUME 81 FL (80-99); NEUTROPHILS % (AUTO) 62.4 % (45.0-75.0); PLATELET COUNT 253 K/UL (150-450); RED BLOOD COUNT 4.43 M/UL (4.20-5.40); RED CELL DISTRIBUTION WIDTH 17.3 % (11.6-14.8); WHITE BLOOD COUNT 10.2 K/UL (4.8-10.8)
[2018-09-08 21:09] LABS: ALANINE AMINOTRANSFERASE 14 U/L (12-78); ALBUMIN 3.1 G/DL (3.4-5.0); ALBUMIN/GLOBULIN RATIO 0.6 (1.0-2.7); ALKALINE PHOSPHATASE 108 U/L (46-116); ASPARTATE AMINO TRANSFERASE 12 U/L (15-37); BILIRUBIN,TOTAL 0.6 MG/DL (0.2-1.0); CKMB < 0.5 NG/ML (0.0-3.6); CREATINE KINASE 83 U/L (26-308)
[2018-09-08] MEDS ORDERED: NS IVLG ONE (21:30)
[2018-09-08] MEDS ORDERED: cefTRIAXone 1 GM in NS 55 ML IVPB ONE (21:30)
[2018-09-08] MEDS ORDERED: Albuterol ud Inhalation HHN ONE (21:45)
[2018-09-08] MEDS ORDERED: Ipratropium 0.02% Inh Soln 2.5ml UD HHN ONE (21:45)
--- NOTE | 2018-09-08 22:17 | Emergency Room Report ---
History of Present Illness General Chief Complaint: Generalized Weakness Source: Patient, Medical Record Present Illness Allergies: Coded Allergies: No Known Allergies (Unverified , 09/08/18) Patient History Past Medical History: DM, HTN, CHF Pertinent Family History: none Social History: Denies: smoking, alcohol use, drug use Now: No Immunizations: UTD Reviewed Nursing Documentation: PMH: Agreed; PSxH: Agreed Nursing Documentation-PMH Past Medical History: No History, Except For Hx Cardiac Problems: Yes - CHF Hx Hypertension: Yes Hx Asthma: No - PE Hx Diabetes: Yes Hx Cancer: No Hx Gastrointestinal Problems: No Hx Neurological Problems: No Review of Systems All Other Systems: negative except mentioned in HPI Physical Exam Vital Signs Date Time Temp Pulse Resp B/P (MAP) Pulse Ox O2 Delivery O2 Flow Rate FiO2 09/08/18 19:39 99.6 86 15 155/66 91 Room Air 99.7 09/08/18 21:41 2.0 28 Sp02 EP Interpretation: reviewed, normal General Appearance: no apparent distress, alert, GCS 15, non-toxic Head: normocephalic, atraumatic Eyes: bilateral eye normal inspection, bilateral eye PERRL ENT: hearing grossly normal, normal pharynx, no angioedema, normal voice Neck: full range of motion, supple/symm/no masses Respiratory: chest non-tender, lungs clear, normal breath sounds, speaking full sentences Cardiovascular #1: regular rate, rhythm, no edema Cardiovascular #2: 2+ carotid (R), 2+ carotid (L), 2+ radial (R), 2+ radial (L) , 2+ dorsalis pedis (R), 2+ dorsalis pedis (L) Gastrointestinal: normal bowel sounds, non tender, soft, non-distended, no guarding, no rebound Rectal: deferred Genitourinary: normal inspection, no CVA tenderness Musculoskeletal: back normal, gait/station normal, normal range of motion, non- tender Neurologic: alert, oriented x3, responsive, motor strength/tone normal, sensory intact, speech normal Psychiatric: judgement/insight normal, memory normal, mood/affect normal, no suicidal/homicidal ideation Reflexes: 3+ bicep (R), 3+ bicep (L), 3+ tricep (R), 3+ tricep (L), 3+ knee (R) , 3+ knee (L) Skin: normal color, no rash, warm/dry, well hydrated Lymphatic: no adenopathy Medical Decision Making Diagnostic Impression: Primary Impression: Dyspnea Qualified Codes: R06.00 - Dyspnea, unspecified Additional Impressions: Cystitis CKD (chronic kidney disease) Qualified Codes: N18.9 - Chronic kidney disease, unspecified Sepsis Qualified Codes: A41.9 - Sepsis, unspecified organism ER Course Hospital Course 73-year-old F presenting to ED with SOB. h/o COPD Differential diagnoses include: Pneumonia, CHF exacerbation, pneumothorax, fluid overload Clinical course Patient placed on stretcher. 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 After initial history and physical, I ordered nebulizer treatments. I ordered labs, IV fluids, EKG, chest x-ray, blood cultures, UA. Labs - no leukocytosis noted, hemoglobin/hematocrit stable, BUN/Cr elevated, lactate 2.3, BNP ok, troponins negative, UA + bacteria CXR - no infiltrates EKG - NSR, no acute ischemic changes interpreted by me Antibiotics given. Because of insurance patient will be transferred. Given 30 mL per KG fluid bolus I feel this is a highly complex case requiring extensive working including EKG/ Rhythm strip, Xray/CT/US, Blood/urine lab work, repeat exams while in ED, and administration of strong opiates/narcotics for pain control, admission to hospital or close patient follow up. Diagnosis - dyspnea, cystitis, CKD, sepsis transferred in serious condition Labs Test 09/08/18 20:20 09/08/18 20:30 White Blood Count 10.2 K/UL (4.8-10.8) Red Blood Count 4.43 M/UL (4.20-5.40) Hemoglobin 10.8 G/DL (12.0-16.0) Hematocrit 35.9 % (37.0-47.0) Mean Corpuscular Volume 81 FL (80-99) Mean Corpuscular Hemoglobin 24.4 PG (27.0-31.0) Mean Corpuscular Hemoglobin Concent 30.2 G/DL (32.0-36.0) Red Cell Distribution Width 17.3 % (11.6-14.8) Platelet Count 253 K/UL (150-450) Mean Platelet Volume 8.8 FL (6.5-10.1) Neutrophils (%) (Auto) 62.4 % (45.0-75.0) Lymphocytes (%) (Auto) 26.2 % (20.0-45.0) Monocytes (%) (Auto) 6.0 % (1.0-10.0) Eosinophils (%) (Auto) 3.7 % (0.0-3.0) Basophils (%) (Auto) 1.7 % (0.0-2.0) Sodium Level 136 MMOL/L (136-145) Potassium Level 4.3 MMOL/L (3.5-5.1) Chloride Level 99 MMOL/L (98-107) Carbon Dioxide Level 29 MMOL/L (21-32) Anion Gap 8 mmol/L (5-15) Blood Urea Nitrogen 33 mg/dL (7-18) Creatinine 2.3 MG/DL (0.55-1.30) Estimat Glomerular Filtration Rate mL/min (>60) Glucose Level 257 MG/DL (74-106) Lactic Acid Level 2.30 mmol/L (0.4-2.0) Calcium Level 9.4 MG/DL (8.5-10.1) Total Bilirubin 0.6 MG/DL (0.2-1.0) Aspartate Amino Transf (AST/SGOT) 12 U/L (15-37) Alanine Aminotransferase (ALT/SGPT) 14 U/L (12-78) Alkaline Phosphatase 108 U/L (46-116) Total Creatine Kinase 83 U/L (26-308) Creatine Kinase MB < 0.5 NG/ML (0.0-3.6) Creatine Kinase MB Relative Index 0.6 Troponin I 0.000 ng/mL (0.000-0.056) Pro-B-Type Natriuretic Peptide 148 pg/mL (0-125) Total Protein 8.5 G/DL (6.4-8.2) Albumin 3.1 G/DL (3.4-5.0) Globulin 5.4 g/dL Albumin/Globulin Ratio 0.6 (1.0-2.7) Urine Color Pale yellow Urine Appearance Slightly cloudy Urine pH 6 (4.5-8.0) Urine Specific [place] 1.010 (1.005-1.035) Urine Protein 3+ (NEGATIVE) Urine Glucose (UA) Negative (NEGATIVE) Urine Ketones Negative (NEGATIVE) Urine Blood 3+ (NEGATIVE) Urine Nitrite Negative (NEGATIVE) Urine Bilirubin Negative (NEGATIVE) Urine Urobilinogen Normal MG/DL (0.0-1.0) Urine Leukocyte Esterase 3+ (NEGATIVE) Urine RBC 10-15 /HPF (0 - 2) Urine WBC 60-80 /HPF (0 - 2) Urine Squamous Epithelial Cells Few /LPF (NONE/OCC) Urine Bacteria Moderate /HPF (NONE) EKG Diagnostic Results Rate: normal Rhythm: NSR ST Segments: no acute changes ASA given to the pt in ED: No Rhythm Strip Diag. Results EP Interpretation: yes Rhythm: NSR, no PVC's, no ectopy Chest X-Ray Diagnostic Results Chest X-Ray Diagnostic Results : Chest X-Ray Ordered: Yes # of Views/Limited/Complete: 1 View Indication: Shortness of Breath EP Interpretation: Yes Interpretation: no consolidation, no effusion, no pneumothorax, no acute cardiopulmonary disease Impression: No acute disease Electronically Signed by: Electronically signed by Vinay Post MD Last Vital Signs Date Time Temp Pulse Resp B/P (MAP) Pulse Ox O2 Delivery O2 Flow Rate FiO2 09/08/18 21:59 70 18 98 Nasal Cannula 2.0 28 09/08/18 19:39 99.6 155/66 99.7 Status: improved Disposition: ADMITTED INPATIENT Condition: Serious Referrals: [facility],REFERRING (PCP) Vinay Post MD Sep 08, 2018 22:17
[2018-09-08 23:45] VITALS: BP 142/67
--- NOTE | 2018-09-09 11:05 | Diagnostic Imaging Report ---
Indication: Dyspnea Comparison: 09/07/2017 A single view chest radiograph was obtained. Findings: Cardiomediastinal appearance is within normal limits for age. The lungs are clear. Pulmonary vascularity is appropriate. The diaphragmatic contour is smooth and costophrenic angles are sharp. No pleural effusions are identified. The bones are unremarkable. Impression: No acute findings
--- NOTE | 2018-09-09 19:36 | Cardiology Report ---
APPROVED REPORT EKG Measurement Heart [id number] Sinus rhythm with 1st degree AV block Nonspecific ST and T wave abnormality Abnormal ECG
== END 2018-09-08 23:45 | disposition other institution (70) ==
LOC: EMR 20:10
DX: R06.00 Dyspnea, unspecified (principal); N30.90 Cystitis, unspecified without hematuria; I13.0 Hypertensive heart and chronic kidney disease with heart failure and stage 1 through stage 4 chronic kidney disease, or unspecified chronic kidney disease; E11.22 Type 2 diabetes mellitus with diabetic chronic kidney disease; N18.9 Chronic kidney disease, unspecified; I50.9 Heart failure, unspecified; A41.9 Sepsis, unspecified organism
CPT/HCPCS: 36415; 71045; 80053; 81003; 82550; 82553; 83605; 83880; 84484; 85025; 87040; 87086; 93005; 94640; 94664; 96361; 96365; 99285; J0696

== ENCOUNTER 2019-05-28 19:27 | Inpatient (IN) | payer MEDICARE ==
[~2019-05-28] VITALS: Ht 165.1 cm; Wt 102.1 kg
[2019-05-28 19:45] VITALS: BP 130/62
[2019-05-28] MEDS ORDERED: Lidocaine 2% Visc 15ml soln ORAL ONE (19:45)
[2019-05-28] MEDS ORDERED: Aspirin Baby 81mg ORAL ONE (19:45)
[2019-05-28] MEDS ORDERED: Mylanta II UD 30ml ORAL ONE (19:45)
--- NOTE | 2019-05-28 19:45 | NUR ---
ED Nurse Note: Patient walked in to ER c/o chest pain, SOB, dizziness x3 days. Patient presented pale, with SOB, nonlabored breathing, pt's O2 sat 100 % on 2L via NC. AAO x4, VSS at this time, skin is dry, warm to touch. Daughter by bed side.
[2019-05-28] MEDS ORDERED: Isovue-300 100ml vial INJ PRN (20:00)
[2019-05-28 20:12] LABS: HEMATOCRIT 26.4 % (37.0-47.0); HEMOGLOBIN 7.7 G/DL (12.0-16.0); MEAN CORPUSCULAR VOLUME 75 FL (80-99); PLATELET COUNT 283 K/UL (150-450); RED BLOOD COUNT 3.53 M/UL (4.20-5.40); RED CELL DISTRIBUTION WIDTH 17.1 % (11.6-14.8); WHITE BLOOD COUNT 10.8 K/UL (4.8-10.8)
[2019-05-28] MEDS ORDERED: FLUTICASONE PRO16 G1 NASAL (20:26)
[2019-05-28] MEDS ORDERED: METOCLOPRAMIDE H5 M1 ORAL (20:26)
[2019-05-28] MEDS ORDERED: XARELTO10 MG ORAL (20:26)
[2019-05-28] MEDS ORDERED: GLIMEPIRIDE4 MG ORAL (20:26)
[2019-05-28] MEDS ORDERED: LOSARTAN POTASS50 MG ORAL (20:26)
[2019-05-28] MEDS ORDERED: SALINE MIST44 ML NS (20:26)
[2019-05-28] MEDS ORDERED: PRAVASTATIN SOD20 M1 ORAL (20:26)
[2019-05-28] MEDS ORDERED: POTASSIUM CHLO10 ME2 PO (20:26)
[2019-05-28] MEDS ORDERED: CATAPRES0.1 MG ORAL (20:26)
[2019-05-28] MEDS ORDERED: ZANTAC150 MG ORAL (20:26)
[2019-05-28 20:31] LABS: APPEARANCE,URINE CLEAR; BILIRUBIN, URINE NEGATIVE (NEGATIVE); COLOR,URINE PALE YELLOW; GLUCOSE, URINE (UA) NEGATIVE (NEGATIVE); KETONES,URINE NEGATIVE (NEGATIVE); LEUKOCYTE ESTERASE ,URINE 1+ (NEGATIVE); NITRITE,URINE NEGATIVE (NEGATIVE); PH,URINE 6 (4.5-8.0); PROTEIN,URINE NEGATIVE (NEGATIVE); UROBILINOGEN,URINE NORMAL MG/DL (0.0-1.0)
[2019-05-28 20:41] LABS: ANION GAP 8 mmol/L (5-15); BLOOD UREA NITROGEN 26 mg/dL (7-18); CALCIUM 9.4 MG/DL (8.5-10.1); CARBON DIOXIDE 31 MMOL/L (21-32); CHLORIDE 106 MMOL/L (98-107); CREATININE 2.6 MG/DL (0.55-1.30); POTASSIUM 4.1 MMOL/L (3.5-5.1); SODIUM 145 MMOL/L (136-145)
--- NOTE | 2019-05-28 20:41 | Emergency Room Report ---
History of Present Illness General Chief Complaint: Chest Pain Source: Patient Present Illness HPI This patient complains of chest pain or shortness of breath. The patient states that she the symptoms for the past 2 weeks. She states that her symptoms are primarily with exertion. She states that when she walks she will get chest pain. She does have a history of a PE and uses oxygen at home. She is on Xarelto. She states she was diagnosed with this about 1 year ago. She denies cough or congestion. She denies fever or chills. She denies abdominal pain. She denies nausea or vomiting. She has no other complaints. She states that she is also chronically anemic. She states that she was seen by her primary care physician who was concerned about her hemoglobin which has been worsening. Allergies: Coded Allergies: No Known Allergies (Unverified , 09/08/18) Patient History Past Medical History: see triage record, [place], CAD, CHF, other - PE Social History: Denies: smoking, alcohol use, drug use Reviewed Nursing Documentation: PMH: Agreed; PSxH: Agreed Nursing Documentation-PMH Hx Cardiac Problems: Yes - CHF Hx Hypertension: Yes Hx Asthma: No - PE Hx Diabetes: Yes Hx Cancer: No Hx Gastrointestinal Problems: No Hx Neurological Problems: No Review of Systems All Other Systems: negative except mentioned in HPI Physical Exam Vital Signs Date Time Temp Pulse Resp B/P (MAP) Pulse Ox O2 Delivery O2 Flow Rate FiO2 05/28/19 19:29 98.1 65 18 138/84 (102) 98 Nasal Cannula 2.0 Sp02 EP Interpretation: reviewed, normal General Appearance: no apparent distress, alert, GCS 15, non-toxic Head: normocephalic, atraumatic Eyes: bilateral eye normal inspection, bilateral eye PERRL ENT: hearing grossly normal, normal pharynx, no angioedema, normal voice Neck: full range of motion, supple/symm/no masses Respiratory: chest non-tender, lungs clear, normal breath sounds, no respiratory distress, no retraction, no accessory muscle use, speaking full sentences Cardiovascular #1: regular rate, rhythm, no edema Gastrointestinal: normal bowel sounds, non tender, soft, non-distended, no guarding, no rebound Rectal: deferred Musculoskeletal: back normal, normal range of motion, non-tender Neurologic: alert, oriented x3, responsive, motor strength/tone normal, sensory intact, speech normal Psychiatric: judgement/insight normal, memory normal, mood/affect normal, no suicidal/homicidal ideation Medical Decision Making Diagnostic Impression: Primary Impression: Dyspnea Additional Impressions: Anemia Renal failure (ARF), acute on chronic ER Course This patient has dyspnea on exertion. She has a iron deficiency anemia. This could be both diet related and absorption related. She also has acute renal failure. Unsure of the acuity of this. I was unable to obtain a CTA of the chest to assess for PE in this patient. Likely the patient's dyspnea is multifactorial. She was started on a blood transfusion and admitted for further evaluation and treatment. She may need a nuclear medicine VQ scan for further evaluation for PE. She is admitted for further evaluation and treatment of her shortness of breath on exertion. Laboratory Tests Test 05/28/19 19:55 05/28/19 19:59 Urine Color Pale yellow Urine Appearance Clear Urine pH 6 (4.5-8.0) Urine Specific [place] 1.010 (1.005-1.035) Urine Protein Negative (NEGATIVE) Urine Glucose (UA) Negative (NEGATIVE) Urine Ketones Negative (NEGATIVE) Urine Blood Negative (NEGATIVE) Urine Nitrite Negative (NEGATIVE) Urine Bilirubin Negative (NEGATIVE) Urine Urobilinogen Normal MG/DL (0.0-1.0) Urine Leukocyte Esterase 1+ (NEGATIVE) H Urine RBC 2-4 /HPF (0 - 2) H Urine WBC 2-4 /HPF (0 - 2) Urine Squamous Epithelial Cells Many /LPF (NONE/OCC) H Urine Bacteria Few /HPF (NONE) White Blood Count 10.8 K/UL (4.8-10.8) Red Blood Count 3.53 M/UL (4.20-5.40) L Hemoglobin 7.7 G/DL (12.0-16.0) L Hematocrit 26.4 % (37.0-47.0) L Mean Corpuscular Volume 75 FL (80-99) L Mean Corpuscular Hemoglobin 21.9 PG (27.0-31.0) L Mean Corpuscular Hemoglobin Concent 29.2 G/DL (32.0-36.0) L Red Cell Distribution Width 17.1 % (11.6-14.8) H Platelet Count 283 K/UL (150-450) Mean Platelet Volume 6.9 FL (6.5-10.1) Neutrophils (%) (Auto) % (45.0-75.0) Lymphocytes (%) (Auto) % (20.0-45.0) Monocytes (%) (Auto) % (1.0-10.0) Eosinophils (%) (Auto) % (0.0-3.0) Basophils (%) (Auto) % (0.0-2.0) Neutrophils % (Manual) Pending Lymphocytes % (Manual) Pending Platelet Estimate Pending Platelet Morphology Pending Sodium Level 145 MMOL/L (136-145) Potassium Level 4.1 MMOL/L (3.5-5.1) Chloride Level 106 MMOL/L (98-107) Carbon Dioxide Level 31 MMOL/L (21-32) Anion Gap 8 mmol/L (5-15) Blood Urea Nitrogen 26 mg/dL (7-18) H Creatinine 2.6 MG/DL (0.55-1.30) H Estimate Glomerular Filtration Rate mL/min (>60) Glucose Level 132 MG/DL (74-106) H Calcium Level 9.4 MG/DL (8.5-10.1) Total Bilirubin 0.5 MG/DL (0.2-1.0) Aspartate Amino Transferase (AST) 14 U/L (15-37) L Alanine Aminotransferase (ALT) 15 U/L (12-78) Alkaline Phosphatase 107 U/L (46-116) Total Creatine Kinase 76 U/L (26-308) Creatine Kinase MB 0.6 NG/ML (0.0-3.6) Creatine Kinase MB Relative Index 0.7 Troponin I 0.005 ng/mL (0.000-0.056) Total Protein 7.9 G/DL (6.4-8.2) Albumin 3.2 G/DL (3.4-5.0) L Globulin 4.7 g/dL Albumin/Globulin Ratio 0.7 (1.0-2.7) L EKG Diagnostic Results Rate: other - SR w/ 1st degree AV block Rhythm: other - SR ST Segments: no acute changes Rhythm Strip Diag. Results EP Interpretation: yes Rate: 60's Rhythm: no PVC's, no ectopy, other Chest X-Ray Diagnostic Results Chest X-Ray Diagnostic Results : Chest X-Ray Ordered: Yes # of Views/Limited/Complete: 1 View Indication: Chest Pain EP Interpretation: Yes Interpretation: no consolidation, no effusion, no pneumothorax, other - Central pulmonary fullness/congestion. Impression: Other - See above Electronically Signed by: Mahogany Wolff DO. CT/MRI/US Diagnostic Results CT/MRI/US Diagnostic Results : Imaging Test Ordered: CTA Chest Impression Cancelled secondary to renal function. Last Vital Signs Date Time Temp Pulse Resp B/P (MAP) Pulse Ox O2 Delivery O2 Flow Rate FiO2 05/28/19 19:29 98.1 65 18 138/84 (102) 98 Nasal Cannula 2.0 Disposition: ADMITTED INPATIENT Condition: Serious Mahogany Wolff DO May 28, 2019 20:41
[2019-05-28 20:49] LABS: ALANINE AMINOTRANSFERASE 15 U/L (12-78); ALBUMIN 3.2 G/DL (3.4-5.0); ALBUMIN/GLOBULIN RATIO 0.7 (1.0-2.7); ALKALINE PHOSPHATASE 107 U/L (46-116); ASPARTATE AMINO TRANSFERASE 14 U/L (15-37); BILIRUBIN,TOTAL 0.5 MG/DL (0.2-1.0); CKMB 0.6 NG/ML (0.0-3.6); CREATINE KINASE 76 U/L (26-308)
[2019-05-28 22:35] VITALS: BP 122/47
--- NOTE | 2019-05-28 22:35 | NUR ---
ED Nurse Note: Patient's blood transfusion started at 2235, VSS at this time, no blood transfusion reaction was noticed.
[2019-05-28 22:50] VITALS: BP 128/60
--- NOTE | 2019-05-28 22:50 | NUR ---
ED Nurse Note: 15 min pass after blood transfusion was started, VSS at this time, no blood transfusion reaction was noticed.
[2019-05-28] MEDS ORDERED: Morphine Sulfate 2mg/ml Inj(IV/IM USE ONLY) IVP ONE (23:15)
[2019-05-29] VITALS (9 sets, daily range): BP systolic 97–125; BP diastolic 37–82
--- NOTE | 2019-05-29 00:30 | NUR ---
ED Nurse Note: Blood transfusion is done, VSS at this time, no acute disstress noticed.
--- NOTE | 2019-05-29 02:00 | NUR ---
NURSE NOTES: Received pt from ED via gurney. Pt transferred to Telemetry and bed without any incident. Pt is A/Ox4. [place] pt to unit, room, and hospital policies. telemetry monitor is in placed, IV site intact, asymptomatic, and patent. Bed is in the lowest position and locked. Call light within reach. Belongings list checked and accounted. No signs/symptoms of acute distress noted at this time. Will contact Dr. Balbuena for admission orders. Addendum: 05/29/19 at 0524 by Kavitha Vu Mai, RN Received report from GABY Farrell.
--- NOTE | 2019-05-29 02:35 | NUR ---
NURSE NOTES: Received admission orders from Dr. Balbuena. Will note and carry out.
--- NOTE | 2019-05-29 04:30 | NUR ---
ED Nurse Note: Patient was admited to Tele due to generalized weakness, anemia. AAO x3, VSS at this time, skin is dry, warm to touch. Patient was transfered to the unit via gurney, with all belongings.
--- NOTE | 2019-05-29 05:29 | NUR ---
NURSE NOTES: Contacted blood bank regarding 2nd unit of packed RBCs ordered from Dr. Balbuena. Spoke to Omid who said 2 unit of packed RBCs is currently not ready yet. Addendum: 05/29/19 at 0806 by Kavitha Vu Mai, RN second unit of packed RBCs is currently not ready*
[2019-05-29 06:50] LABS: EOSINOPHILS % (AUTO) 6.7 % (0.0-3.0); HEMATOCRIT 29.9 % (37.0-47.0); HEMOGLOBIN 8.7 G/DL (12.0-16.0); LYMPHOCYTES % (AUTO) 26.7 % (20.0-45.0); MEAN CORPUSCULAR VOLUME 77 FL (80-99); MONOCYTES % (AUTO) 7.2 % (1.0-10.0); NEUTROPHILS % (AUTO) 58.5 % (45.0-75.0); PLATELET COUNT 251 K/UL (150-450); RED BLOOD COUNT 3.89 M/UL (4.20-5.40); RED CELL DISTRIBUTION WIDTH 17.8 % (11.6-14.8); WHITE BLOOD COUNT 9.4 K/UL (4.8-10.8)
--- NOTE | 2019-05-29 07:07 | NUR ---
NURSE NOTES: Confirmed with Dr. Balbuena regarding Novolog Mix 70/[address] Balbuena confirmed that it is correct and also ordered Moderate Novolog sliding scale.
[2019-05-29 07:11] LABS: ALANINE AMINOTRANSFERASE 10 U/L (12-78); ALBUMIN 3.1 G/DL (3.4-5.0); ALBUMIN/GLOBULIN RATIO 0.7 (1.0-2.7); ALKALINE PHOSPHATASE 108 U/L (46-116); ANION GAP 9 mmol/L (5-15); ASPARTATE AMINO TRANSFERASE 14 U/L (15-37); BILIRUBIN,TOTAL 0.5 MG/DL (0.2-1.0); BLOOD UREA NITROGEN 27 mg/dL (7-18); CALCIUM 8.9 MG/DL (8.5-10.1); CARBON DIOXIDE 28 MMOL/L (21-32); CHLORIDE 103 MMOL/L (98-107); CHOLESTEROL 145 MG/DL (< 200); CREATININE 2.3 MG/DL (0.55-1.30); HDL CHOLESTEROL 45 MG/DL (40-60); POTASSIUM 3.9 MMOL/L (3.5-5.1); SODIUM 140 MMOL/L (136-145); TRIGLYCERIDES 168 MG/DL (30-150)
--- NOTE | 2019-05-29 08:03 | NUR ---
HAND-OFF: Report given to GABY Mar.
--- NOTE | 2019-05-29 08:03 | NUR ---
second unit of packed RBCs is currently not ready* Addendum: 05/29/19 at 0805 by Kavitha Vu Mai, RN WRONG NOTE!
[2019-05-29] MEDS: Furosemide 40mg tab ORAL SCH ×2 (08:38→17:48)
[2019-05-29] MEDS: Losartan 50mg tab ORAL SCH (08:38)
[2019-05-29] MEDS: Lisinopril 2.5mg tab ORAL SCH (08:38)
[2019-05-29] MEDS: Ocean Nasal Spray 45ml NASAL SCH ×2 (08:39→17:49)
[2019-05-29] MEDS ORDERED: Xarelto 10mg tab ORAL SCH (09:00)
--- NOTE | 2019-05-29 10:04 | History & Physical ---
History and Physical History & Physicial HISTORY AND PHYSICAL CHIEF COMPLAINT: The patient is a 74-year-old, lady who presents with chest pain and weakness HISTORY OF PRESENT ILLNESS: The patient was recently seen by her PMD with concern about anemia. She presented to the ER with above c/o. She is quite anemic and has had transfusions in the past. She had a neg stress imaging here in 2017. She was transfused since admission but still feels weak and has atypical chest pain. SURGERIES: Gallbladder and hysterectomy for benign disease. PMH: PE, HTN, DM, CAD, [place], CHF, anemia ALLERGIES: None known. MEDICATIONS: reviewed and reconciled HABITS: She is a former smoker and quit. SYSTEM REVIEW: HEAD, EYES, EARS, NOSE, AND THROAT: She has mild decreased visual acuity with no known cataracts or diabetic retinopathy. Hearing is mildly diminished. ENDOCRINE: Long-standing diabetes, likely more than 20 years. She also was treated for thyroid in the past, but not for many years. PULMONARY: No asthma, TB, chronic cough, or recent pulmonary emboli. She is not short of breath at this time. She is on Xarelto. CARDIAC: Recurrent chest pain with a negative stress test as noted GASTROINTESTINAL: She has some intermittent heartburn. No GI bleeding or definite ulcers. Undergoing GI evaluation with PMD. GENITOURINARY: She has had multiple UTIs in the past. No hematuria or kidney stones. NEUROLOGIC: No CVA or seizures. MUSCULOSKELETAL: Mild arthralgias. PHYSICAL EXAMINATION: GENERAL: The patient is seen on 2E. She is alert, chronically ill-appearing, but in no acute distress. VITAL SIGNS: stable HEAD, EYES, EARS, NOSE, AND THROAT: Sclerae are nonicteric. Ocular motions intact in all directions. Oral mucosa moist. NECK: No adenopathy or thyroid enlargement. LUNGS: Clear. HEART: Regular rhythm. Normal S1 and S2, murmur or rub. ABDOMEN: Obese and soft. No organomegaly or masses. EXTREMITIES: Trace edema. No inflamed joints. NEUROLOGIC: She is alert and oriented. Cranial nerves are intact. PERTINENT LABORATORIES: reviewed IMPRESSION: 1. Anemia, likely due to CKD 2. Hx of pulmonary emboli. 3. Chronic congestive heart failure, diastolic dysfunction. 4. Chronic kidney disease stage 4. 5. CKD 6. Chest pain, hx CAD transfused cardiology called Rolando Balbuena MD May 29, 2019 10:04
[2019-05-29] MEDS: Glimepiride 4mg tab ORAL SCH ×2 (10:52→17:48)
[2019-05-29] MEDS: NovoLOG Insulin Flexpen SUBQ SCH ×3 (11:03→21:26)
--- NOTE | 2019-05-29 12:07 | Diagnostic Imaging Report ---
Indication: Chest pain Comparison: 09/08/1980 A single view chest radiograph was obtained. Findings: No definite infiltrate or pulmonary vascular congestion identified. The heart is enlarged. The aorta is mildly enlarged consistent with atherosclerotic vascular disease. The bones are unremarkable. Impression: No acute disease
--- NOTE | 2019-05-29 12:59 | NUR ---
CASE MANAGEMENT:REVIEW 74 YR OLD FEMALE FROM HOME TO ER CC: CHEST PAIN RADIATING TO BACK AND LT ARM. SOB AND DIZZINESS SI: ANEMIA 98.1 65 18 138/84 98% ON 2L/NC H/H-7.7/26.4 BUN+26 CR+2.6 IS: ASA PO IV PEPCID IV MORPHINE : TO TELEMETRY IS: TRANSFUSE 2 UNITS PRBC'S Addendum: 05/29/19 at 1318 by WENCESLAO SAMUELS, PAULINE CARPENTER INTERQUAL CRITERIA MET
--- NOTE | 2019-05-29 15:55 | Cardiology Report ---
APPROVED REPORT EKG Measurement Heart [id number] Sinus rhythm with 1st degree AV block Otherwise normal ECG
--- NOTE | 2019-05-29 16:19 | NUR ---
INSURANCE CLINICALS AND REVIEWS FAXED TO [facility]: [facility] P: [phone] F: [phone] (FAX CLINICALS)
--- NOTE | 2019-05-29 19:20 | NUR ---
NURSE NOTES: Received pt and report from GABY Mar. Observed pt resting in bed with both eyes closed. classroom monitor is in placed. IV site intact, asymptomatic, and patent. Bed is in the lowest position and locked, call light within reach. No signs and symptoms of acute distress noted at this time. Will continue plan of care.
--- NOTE | 2019-05-29 19:28 | NUR ---
HAND-OFF: Report given to ZACK GRIFFIN.
--- NOTE | 2019-05-29 20:27 | Cardiology Progress Note ---
Assessment/Plan Assessment/Plan prt seen and examine full note to follow Objective Last 24 Hour Vital Signs Date Time Temp Pulse Resp B/P (MAP) Pulse Ox O2 Delivery O2 Flow Rate FiO2 05/29/19 20:00 98.1 69 18 106/37 (60) 94 05/29/19 16:00 98.2 68 20 110/49 (69) 90 05/29/19 16:00 67 05/29/19 12:00 97.5 58 18 119/82 (94) 95 05/29/19 12:00 59 05/29/19 09:00 Nasal Cannula 2.0 05/29/19 08:38 118/78 05/29/19 08:38 118/78 05/29/19 08:36 98.8 56 18 118/78 (91) 93 05/29/19 08:00 57 05/29/19 04:00 59 05/29/19 04:00 97.8 59 18 120/56 (77) 98 05/29/19 02:11 Nasal Cannula 2.0 05/29/19 02:00 97.9 55 20 125/46 (72) 96 05/29/19 01:53 55 05/29/19 01:43 98.0 62 18 122/45 100 Nasal Cannula 2.0 05/29/19 01:43 98.0 62 18 122/45 100 Nasal Cannula 2.0 05/29/19 00:30 98.0 62 18 122/45 100 Nasal Cannula 2.0 05/28/19 23:46 98.0 05/28/19 22:35 98.0 57 16 122/47 100 Nasal Cannula 2.0 Intake and Output 05/28/19 05/29/19 19:00 07:00 # Voids 2 Laboratory Tests Test 05/29/19 00:24 05/29/19 05:46 05/29/19 18:00 Lab Scanned Report Blood Bank/Transfusion White Blood Count 9.4 K/UL (4.8-10.8) Red Blood Count 3.89 M/UL (4.20-5.40) L Hemoglobin 8.7 G/DL (12.0-16.0) L Hematocrit 29.9 % (37.0-47.0) L Mean Corpuscular Volume 77 FL (80-99) L Mean Corpuscular Hemoglobin 22.4 PG (27.0-31.0) L Mean Corpuscular Hemoglobin Concent 29.1 G/DL (32.0-36.0) L Red Cell Distribution Width 17.8 % (11.6-14.8) H Platelet Count 251 K/UL (150-450) Mean Platelet Volume 7.6 FL (6.5-10.1) Neutrophils (%) (Auto) 58.5 % (45.0-75.0) Lymphocytes (%) (Auto) 26.7 % (20.0-45.0) Monocytes (%) (Auto) 7.2 % (1.0-10.0) Eosinophils (%) (Auto) 6.7 % (0.0-3.0) H Basophils (%) (Auto) 1.0 % (0.0-2.0) Sodium Level 140 MMOL/L (136-145) Potassium Level 3.9 MMOL/L (3.5-5.1) Chloride Level 103 MMOL/L (98-107) Carbon Dioxide Level 28 MMOL/L (21-32) Anion Gap 9 mmol/L (5-15) Blood Urea Nitrogen 27 mg/dL (7-18) H Creatinine 2.3 MG/DL (0.55-1.30) H Estimat Glomerular Filtration Rate mL/min (>60) Glucose Level 221 MG/DL (74-106) H Hemoglobin A1c 8.8 % (4.3-6.0) H Calcium Level 8.9 MG/DL (8.5-10.1) Total Bilirubin 0.5 MG/DL (0.2-1.0) Aspartate Amino Transf (AST/SGOT) 14 U/L (15-37) L Alanine Aminotransferase (ALT/SGPT) 10 U/L (12-78) L Alkaline Phosphatase 108 U/L (46-116) Total Protein 7.8 G/DL (6.4-8.2) Albumin 3.1 G/DL (3.4-5.0) L Globulin 4.7 g/dL Albumin/Globulin Ratio 0.7 (1.0-2.7) L Triglycerides Level 168 MG/DL (30-150) H Cholesterol Level 145 MG/DL (< 200) LDL Cholesterol 73 mg/dL (<100) HDL Cholesterol 45 MG/DL (40-60) Cholesterol/HDL Ratio 3.2 (3.3-4.4) L Thyroid Stimulating Hormone (TSH) 0.711 uiU/mL (0.358-3.740) Troponin I 0.011 ng/mL (0.000-0.056) Joe Guillen MD May 29, 2019 20:27
[2019-05-30] VITALS: BP 127/61
[2019-05-30 04:00] VITALS: BP 125/48
[2019-05-30 04:36] LABS: HEMATOCRIT 26.5 % (37.0-47.0); HEMOGLOBIN 7.9 G/DL (12.0-16.0); MEAN CORPUSCULAR VOLUME 76 FL (80-99); PLATELET COUNT 233 K/UL (150-450); RED BLOOD COUNT 3.51 M/UL (4.20-5.40); RED CELL DISTRIBUTION WIDTH 17.7 % (11.6-14.8); WHITE BLOOD COUNT 8.7 K/UL (4.8-10.8)
[2019-05-30 04:54] LABS: CHOLESTEROL 131 MG/DL (< 200); HDL CHOLESTEROL 38 MG/DL (40-60); TRIGLYCERIDES 176 MG/DL (30-150)
[2019-05-30] MEDS: NovoLOG Insulin Flexpen SUBQ SCH ×4 (06:27→22:02)
--- NOTE | 2019-05-30 06:30 | NUR ---
NURSE NOTES: Contacted Dr. Balbuena regarding pt's hgb of 7.9; Dr. Balbuena said to contact Dr. Mandujano who is covering for him. Will endorse to jose GRIFFIN.
--- NOTE | 2019-05-30 07:50 | NUR ---
NURSE NOTES: Left message for Dr. Mandujano regarding patients Hgb. Will await call back.
--- NOTE | 2019-05-30 07:57 | NUR ---
HAND-OFF: Report given to GABY Ronquillo.
[2019-05-30 08:00] VITALS: BP 126/58
--- NOTE | 2019-05-30 08:04 | NUR ---
NURSE NOTES: Received report from Louis Capps. Patient in bed awake and alert. Denies pain or discomfort. Will continue to monitor.
[2019-05-30] MEDS: Furosemide 40mg tab ORAL SCH ×2 (08:39→17:45)
[2019-05-30] MEDS: Losartan 50mg tab ORAL SCH (08:39)
[2019-05-30] MEDS: Lisinopril 2.5mg tab ORAL SCH (08:40)
[2019-05-30] MEDS: Glimepiride 4mg tab ORAL SCH ×2 (08:40→17:45)
[2019-05-30] MEDS: Ocean Nasal Spray 45ml NASAL SCH ×2 (08:41→17:48)
[2019-05-30 12:00] VITALS: BP 115/73
--- NOTE | 2019-05-30 12:38 | NUR ---
CASE MANAGEMENT: REVIEW 05/30/2019 SI: ANEMIA T 98.7 HR 70 RR 18 B/P 126/58 SATS 95% ON 2L/NC HGB 7.9 HCT 26.5 HA1C 8.8 IS: LASIX PO BID PROTONIX PO QAM PEPCID PO QAM PRAVACHOL PO QHS GABAPENTIN PO QD LISINOPRIL PO QD COZAAR PO QD INSULIN ASPART SUBQ AC/HS XARELTO PO QPM : TO TELEMETRY PLAN OF CARE: 2D ECHO ORTHO BPs
--- NOTE | 2019-05-30 13:42 | Cardiology Progress Note ---
Assessment/Plan Assessment/Plan noted Hb is low, the patient is on NOAK due to history of PE, no cardiac complaints, remained in sinus rhythm on the monitor, did nto have colonoscopy, anemia MNG per PCP Subjective Subjective the patient is resting comfortably, but she is anxious about her hb results and complaining on dyspnea with walking, no chest pain, has abdominal distention Objective Last 24 Hour Vital Signs Date Time Temp Pulse Resp B/P (MAP) Pulse Ox O2 Delivery O2 Flow Rate FiO2 05/30/19 12:00 62 05/30/19 12:00 97.5 70 18 115/73 (87) 65 05/30/19 09:00 Nasal Cannula 2.0 05/30/19 08:40 126/58 05/30/19 08:39 126/58 05/30/19 08:00 69 05/30/19 08:00 98.7 70 18 126/58 (80) 95 05/30/19 04:00 71 05/30/19 04:00 98.3 67 17 125/48 (73) 96 05/30/19 00:00 97.7 66 18 127/61 (83) 92 05/30/19 00:00 58 05/29/19 21:00 Nasal Cannula 2.0 05/29/19 20:00 98.1 69 18 106/37 (60) 94 05/29/19 20:00 66 05/29/19 16:00 98.2 68 20 110/49 (69) 90 05/29/19 16:00 67 General Appearance: no apparent distress EENT: PERRL/EOMI Neck: non-tender, JVD Rhythm: NSR, SB Cardiovascular: normal rate Respiratory/Chest: lungs clear Abdomen: distended Extremities: trace edema Intake and Output 05/29/19 05/30/19 19:00 07:00 Intake Total 380 ml 270 ml Balance 380 ml 270 ml Intake Oral 380 ml 270 ml # Voids 3 4 Laboratory Tests Test 05/29/19 18:00 05/30/19 04:00 05/30/19 11:40 Troponin I 0.011 ng/mL (0.000-0.056) 0.010 ng/mL (0.000-0.056) 0.000 ng/mL (0.000-0.056) White Blood Count 8.7 K/UL (4.8-10.8) Red Blood Count 3.51 M/UL (4.20-5.40) L Hemoglobin 7.9 G/DL (12.0-16.0) L Hematocrit 26.5 % (37.0-47.0) L Mean Corpuscular Volume 76 FL (80-99) L Mean Corpuscular Hemoglobin 22.6 PG (27.0-31.0) L Mean Corpuscular Hemoglobin Concent 29.9 G/DL (32.0-36.0) L Red Cell Distribution Width 17.7 % (11.6-14.8) H Platelet Count 233 K/UL (150-450) Mean Platelet Volume 7.5 FL (6.5-10.1) Neutrophils (%) (Auto) % (45.0-75.0) Lymphocytes (%) (Auto) % (20.0-45.0) Monocytes (%) (Auto) % (1.0-10.0) Eosinophils (%) (Auto) % (0.0-3.0) Basophils (%) (Auto) % (0.0-2.0) Differential Total Cells Counted 100 Neutrophils % (Manual) 65 % (45-75) Lymphocytes % (Manual) 24 % (20-45) Monocytes % (Manual) 5 % (1-10) Eosinophils % (Manual) 6 % (0-3) H Basophils % (Manual) 0 % (0-2) Band Neutrophils 0 % (0-8) Platelet Estimate Adequate Platelet Morphology Normal Hypochromasia 3+ Anisocytosis 1+ Microcytosis 1+ Hemoglobin A1c 8.8 % (4.3-6.0) H Magnesium Level 2.2 MG/DL (1.8-2.4) Pro-B-Type Natriuretic Peptide 93 pg/mL (0-125) Triglycerides Level 176 MG/DL (30-150) H Cholesterol Level 131 MG/DL (< 200) LDL Cholesterol 67 mg/dL (<100) HDL Cholesterol 38 MG/DL (40-60) L Cholesterol/HDL Ratio 3.4 (3.3-4.4) Thyroid Stimulating Hormone (TSH) 0.300 uiU/mL (0.358-3.740) Milli Tate MD May 30, 2019 13:42
[2019-05-30 16:00] VITALS: BP 121/72
[2019-05-30] MEDS: Xarelto 15mg tab ORAL SCH (17:46)
--- NOTE | 2019-05-30 18:44 | Pulmonology Progress Note ---
Assessment/Plan Assessment/Plan 1. Anemia, likely due to CKD 2. Hx of pulmonary emboli. 3. Chronic congestive heart failure, diastolic dysfunction. 4. Chronic kidney disease stage 4. 5. CKD 6. Chest pain, hx CAD check am labs if hbg declines again transfuse adn will need GI evaluation ob ordered again fu with cards recommendastions on AC for hx of PE, may need to hold Subjective ROS Limited/Unobtainable: No Gastrointestinal/Abdominal: Reports: bloating Allergies: Coded Allergies: No Known Allergies (Unverified , 09/08/18) Subjective complains of cp complains of abdominal pain no weakness no fever or chills unknown if blood in stool HBG declined today to 7.9 Objective Last 24 Hour Vital Signs Date Time Temp Pulse Resp B/P (MAP) Pulse Ox O2 Delivery O2 Flow Rate FiO2 05/30/19 16:30 78 05/30/19 16:00 98.3 67 20 121/72 (88) 67 05/30/19 12:00 62 05/30/19 12:00 97.5 70 18 115/73 (87) 65 05/30/19 09:00 Nasal Cannula 2.0 05/30/19 08:40 126/58 05/30/19 08:39 126/58 05/30/19 08:00 69 05/30/19 08:00 98.7 70 18 126/58 (80) 95 05/30/19 04:00 71 05/30/19 04:00 98.3 67 17 125/48 (73) 96 05/30/19 00:00 97.7 66 18 127/61 (83) 92 05/30/19 00:00 58 05/29/19 21:00 Nasal Cannula 2.0 05/29/19 20:00 98.1 69 18 106/37 (60) 94 05/29/19 20:00 66 Intake and Output 05/29/19 05/30/19 19:00 07:00 Intake Total 380 ml 270 ml Balance 380 ml 270 ml Intake Oral 380 ml 270 ml # Voids 3 4 General Appearance: WD/WN Respiratory/Chest: chest wall non-tender, lungs clear, normal breath sounds Cardiovascular: normal rate, regular rhythm Abdomen: normal bowel sounds, soft, non tender, no organomegaly Neurologic/Psychiatric: alert, responsive Laboratory Tests 05/30/19 04:00: White Blood Count 8.7, Red Blood Count 3.51L, Hemoglobin 7.9L, Hematocrit 26.5L , Mean Corpuscular Volume 76L, Mean Corpuscular Hemoglobin 22.6L, Mean Corpuscular Hemoglobin Concent 29.9L, Red Cell Distribution Width 17.7H, Platelet Count 233, Mean Platelet Volume 7.5, Neutrophils (%) (Auto) , Lymphocytes (%) (Auto) , Monocytes (%) (Auto) , Eosinophils (%) (Auto) , Basophils (%) (Auto) , Differential Total Cells Counted 100, Neutrophils % ( Manual) 65, Lymphocytes % (Manual) 24, Monocytes % (Manual) 5, Eosinophils % ( Manual) 6H, Basophils % (Manual) 0, Band Neutrophils 0, Platelet Estimate Adequate, Platelet Morphology Normal, Hypochromasia 3+, Anisocytosis 1+, Microcytosis 1+, Hemoglobin A1c 8.8H, Magnesium Level 2.2, Troponin I 0.010, Pro -B-Type Natriuretic Peptide 93, Triglycerides Level 176H, Cholesterol Level 131 , LDL Cholesterol 67, HDL Cholesterol 38L, Cholesterol/HDL Ratio 3.4, Thyroid Stimulating Hormone (TSH) 0.300L 05/30/19 11:40: Troponin I 0.000 Current Medications Medications (Trade) Dose Ordered Sig/Mary Route PRN Reason Start Time Stop Time Status Last Admin Dose Admin Clonidine HCl (Catapres Tab) 0.1 mg Q6H PRN ORAL For High Blood Pressure 05/29/19 03:15 06/28/19 03:14 Dextrose (Dextrose 50%) 25 ml Q30M PRN IV Hypoglycemia 05/29/19 08:00 06/28/19 07:59 Dextrose (Dextrose 50%) 50 ml Q30M PRN IV Hypoglycemia 05/29/19 08:00 06/28/19 07:59 Famotidine (Pepcid) 20 mg ACBREAKFAST ORAL 05/29/19 06:30 06/28/19 06:29 05/30/19 06:23 Furosemide (Lasix) 40 mg TWICE A DAY ORAL 05/29/19 09:00 06/28/19 08:59 05/30/19 17:45 Gabapentin (Neurontin) 300 mg DAILY ORAL 05/29/19 09:00 06/28/19 08:59 05/30/19 08:39 Glimepiride (Amaryl) 4 mg BID ORAL 05/29/19 10:15 06/28/19 10:14 05/30/19 17:45 Insulin Aspart (NovoLOG Mix 70/ 30) 62 units BIAC SUBQ 05/29/19 06:30 06/28/19 06:29 05/30/19 17:48 Insulin Aspart (NovoLOG) BEFORE MEALS AND HS SUBQ 05/29/19 11:30 06/28/19 11:29 05/30/19 17:47 Iopamidol (Isovue-300 100ml) 100 ml NOW PRN INJ Radiology Procedure 05/28/19 20:00 05/30/19 19:52 Lisinopril (Zestril) 5 mg DAILY ORAL 05/29/19 09:00 06/28/19 08:59 05/30/19 08:40 Losartan Potassium (Cozaar) 100 mg DAILY ORAL 05/29/19 09:00 06/28/19 08:59 05/30/19 08:39 Pantoprazole (Protonix) 40 mg ACBREAKFAST ORAL 05/29/19 06:30 06/28/19 06:29 05/30/19 06:23 Pravastatin Sodium (Pravachol) 40 mg BEDTIME ORAL 05/29/19 21:00 06/28/19 20:59 05/29/19 21:24 Rivaroxaban (Xarelto) 15 mg QPM ORAL 05/30/19 16:30 06/28/19 08:59 05/30/19 17:46 Sodium Chloride ([place] Nasal [place]) 2 spray BID NASAL 05/29/19 09:00 06/28/19 08:59 05/30/19 17:48 Tramadol HCl (Ultram) 50 mg TID PRN ORAL For Pain 05/29/19 03:15 06/05/19 03:14 Mila Mandujano DO May 30, 2019 18:44
--- NOTE | 2019-05-30 19:40 | NUR ---
HAND-OFF: Report given to Louis Montejo. Isabell davis. Plan of care endorsed..
--- NOTE | 2019-05-30 19:45 | NUR ---
NURSE NOTES: pt in bed watching tv. no acute distress noted, no c/o pain. fall precaution in place: bed locked and lowest position, call light and personal belonging within reach, will continue to monitor pt for any change in condition.
[2019-05-30 20:00] VITALS: BP 113/53
[2019-05-31] VITALS: BP 120/53
--- NOTE | 2019-05-31 00:22 | NUR ---
NURSE NOTES: pt sleeping, no change in condition. will continue to monitor for any change in condition.
[2019-05-31] MEDS: traMADol 50mg tab ORAL PRN (00:54)
[2019-05-31 04:00] VITALS: BP 115/55
--- NOTE | 2019-05-31 04:00 | NUR ---
NURSE NOTES: pt stable, no change in condition. will continue to monitor for any change in condition.
[2019-05-31] MEDS: NovoLOG Insulin Flexpen SUBQ SCH ×4 (06:07→20:58)
--- NOTE | 2019-05-31 06:51 | NUR ---
NURSE NOTES: pt remains stable, no change in condition. fall precautions in place: bed locked and lowest position. bedside rail up x 2, call light and personal belongings within pt's reach. all needs met during my shift. will endorse plan of care to incoming nurse.
--- NOTE | 2019-05-31 07:11 | NUR ---
HAND-OFF: Report given to GABY Ronquillo.
--- NOTE | 2019-05-31 07:27 | NUR ---
NURSE NOTES: Received report from Louis Montejo. Patient sleeping comfortably in bed. No sign and symptoms of pain or distress. All safety precautions in place. Call morales within reached. will monitor.
[2019-05-31 07:50] LABS: BASOPHILS % (AUTO) 0.7 % (0.0-2.0); EOSINOPHILS % (AUTO) 6.8 % (0.0-3.0); HEMATOCRIT 29.5 % (37.0-47.0); HEMOGLOBIN 8.4 G/DL (12.0-16.0); LYMPHOCYTES % (AUTO) 18.6 % (20.0-45.0); MEAN CORPUSCULAR VOLUME 76 FL (80-99); NEUTROPHILS % (AUTO) 68.9 % (45.0-75.0); PLATELET COUNT 261 K/UL (150-450); RED BLOOD COUNT 3.88 M/UL (4.20-5.40); RED CELL DISTRIBUTION WIDTH 17.5 % (11.6-14.8); WHITE BLOOD COUNT 9.8 K/UL (4.8-10.8)
[2019-05-31 08:00] VITALS: BP 119/47
[2019-05-31 08:03] LABS: ANION GAP 9 mmol/L (5-15); BLOOD UREA NITROGEN 38 mg/dL (7-18); CALCIUM 9.2 MG/DL (8.5-10.1); CARBON DIOXIDE 31 MMOL/L (21-32); CHLORIDE 103 MMOL/L (98-107); CREATININE 2.5 MG/DL (0.55-1.30); POTASSIUM 4.1 MMOL/L (3.5-5.1); SODIUM 143 MMOL/L (136-145)
[2019-05-31] MEDS: Ocean Nasal Spray 45ml NASAL SCH ×2 (08:39→17:06)
[2019-05-31] MEDS: Losartan 50mg tab ORAL SCH (08:40)
[2019-05-31] MEDS: Lisinopril 2.5mg tab ORAL SCH (08:41)
[2019-05-31] MEDS: Furosemide 40mg tab ORAL SCH ×2 (08:42→17:06)
[2019-05-31] MEDS: Glimepiride 4mg tab ORAL SCH ×2 (08:42→17:06)
--- NOTE | 2019-05-31 09:00 | NUR ---
NURSE NOTES:Call placed to Dr. Mandujano. patient requesting breathing treatment stated she takes them at home. awaiting call back. patient no c/o of SOB at this time.
--- NOTE | 2019-05-31 10:30 | Pulmonology Progress Note ---
Assessment/Plan Assessment/Plan 1. Anemia, likely due to CKD 2. Hx of pulmonary emboli. 3. Chronic congestive heart failure, diastolic dysfunction. 4. Chronic kidney disease stage 4. 5. CKD 6. Chest pain, hx CAD check am labs if hbg declines again transfuse, GI to see ob ordered again still pending fu with cards recommendations on AC for hx of PE, may need to hold Subjective Constitutional: Reports: no symptoms HEENT: Repors: no symptoms Respiratory: Reports: no symptoms Cardiovascular: Reports: chest pain Gastrointestinal/Abdominal: Reports: bloating Genitourinary: Reports: no symptoms Neurologic: Reports: no symptoms Allergies: Coded Allergies: No Known Allergies (Unverified , 09/08/18) Subjective complains of cp over night still complains of abdominal pain no weakness no fever or chills unknown if blood in stool HBG better today Objective Last 24 Hour Vital Signs Date Time Temp Pulse Resp B/P (MAP) Pulse Ox O2 Delivery O2 Flow Rate FiO2 05/31/19 08:41 119/47 05/31/19 08:40 119/47 05/31/19 08:00 69 05/31/19 08:00 98.4 71 19 119/47 (71) 93 05/31/19 04:00 67 05/31/19 04:00 98.2 70 19 115/55 (75) 98 05/31/19 00:10 84 05/31/19 00:05 77 05/31/19 00:00 69 05/31/19 00:00 77 05/31/19 00:00 98.1 77 19 120/53 (75) 98 05/30/19 22:11 Nasal Cannula 2.0 28 05/30/19 22:09 92 Nasal Cannula 2.0 28 05/30/19 21:00 Nasal Cannula 2.0 05/30/19 20:00 75 05/30/19 20:00 98.9 71 19 113/53 (73) 98 05/30/19 16:30 78 05/30/19 16:00 98.3 67 20 121/72 (88) 67 05/30/19 12:00 62 05/30/19 12:00 97.5 70 18 115/73 (87) 65 Intake and Output 05/30/19 05/31/19 19:00 07:00 Intake Total 260 ml 120 ml Balance 260 ml 120 ml Intake Oral 260 ml 120 ml # Voids 3 4 General Appearance: WD/WN Respiratory/Chest: lungs clear, normal breath sounds Cardiovascular: normal rate, regular rhythm Abdomen: tender Neurologic/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 normal, oriented x 3 Lymphatic: no neck adenopathy, no groin adenopathy Laboratory Tests 05/30/19 11:40: Troponin I 0.000 05/31/19 07:08: White Blood Count 9.8, Red Blood Count 3.88L, Hemoglobin 8.4L, Hematocrit 29.5L , Mean Corpuscular Volume 76L, Mean Corpuscular Hemoglobin 21.6L, Mean Corpuscular Hemoglobin Concent 28.4L, Red Cell Distribution Width 17.5H, Platelet Count 261, Mean Platelet Volume 6.9, Neutrophils (%) (Auto) 68.9, Lymphocytes (%) (Auto) 18.6L, Monocytes (%) (Auto) 5.0, Eosinophils (%) (Auto) 6.8H, Basophils (%) (Auto) 0.7, Sodium Level 143, Potassium Level 4.1, Chloride Level 103, Carbon Dioxide Level 31, Anion Gap 9, Blood Urea Nitrogen 38H, Creatinine 2.5H, Estimat Glomerular Filtration Rate , Glucose Level 211H, Calcium Level 9.2 Current Medications Medications (Trade) Dose Ordered Sig/Mary Route PRN Reason Start Time Stop Time Status Last Admin Dose Admin Clonidine HCl (Catapres Tab) 0.1 mg Q6H PRN ORAL For High Blood Pressure 05/29/19 03:15 06/28/19 03:14 Dextrose (Dextrose 50%) 25 ml Q30M PRN IV Hypoglycemia 05/29/19 08:00 06/28/19 07:59 Dextrose (Dextrose 50%) 50 ml Q30M PRN IV Hypoglycemia 05/29/19 08:00 06/28/19 07:59 Famotidine (Pepcid) 20 mg ACBREAKFAST ORAL 05/29/19 06:30 06/28/19 06:29 05/31/19 06:07 Furosemide (Lasix) 40 mg TWICE A DAY ORAL 05/29/19 09:00 06/28/19 08:59 05/31/19 08:42 Gabapentin (Neurontin) 300 mg DAILY ORAL 05/29/19 09:00 06/28/19 08:59 05/31/19 08:41 Glimepiride (Amaryl) 4 mg BID ORAL 05/29/19 10:15 06/28/19 10:14 05/31/19 08:42 Insulin Aspart (NovoLOG Mix 70/ 30) 62 units BIAC SUBQ 05/29/19 06:30 06/28/19 06:29 05/31/19 06:12 Insulin Aspart (NovoLOG) BEFORE MEALS AND HS SUBQ 05/29/19 11:30 06/28/19 11:29 05/31/19 06:07 Lisinopril (Zestril) 5 mg DAILY ORAL 05/29/19 09:00 06/28/19 08:59 05/31/19 08:41 Losartan Potassium (Cozaar) 100 mg DAILY ORAL 05/29/19 09:00 06/28/19 08:59 05/31/19 08:40 Pantoprazole (Protonix) 40 mg ACBREAKFAST ORAL 05/29/19 06:30 06/28/19 06:29 05/31/19 06:07 Pravastatin Sodium (Pravachol) 40 mg BEDTIME ORAL 05/29/19 21:00 06/28/19 20:59 05/30/19 22:00 Rivaroxaban (Xarelto) 15 mg QPM ORAL 05/30/19 16:30 06/28/19 08:59 05/30/19 17:46 Sodium Chloride ([place] Nasal [place]) 2 spray BID NASAL 05/29/19 09:00 06/28/19 08:59 05/31/19 08:39 Tramadol HCl (Ultram) 50 mg TID PRN ORAL For Pain 05/29/19 03:15 06/05/19 03:14 05/31/19 00:54 Mila Mandujano DO May 31, 2019 10:30
[2019-05-31 12:00] VITALS: BP 116/53
--- NOTE | 2019-05-31 14:05 | Cardiology Progress Note ---
Assessment/Plan Assessment/Plan she is compalining on chest pain, will go ahead with stress NUC Subjective Subjective the patient is complaining on chest pain Objective Last 24 Hour Vital Signs Date Time Temp Pulse Resp B/P (MAP) Pulse Ox O2 Delivery O2 Flow Rate FiO2 05/31/19 12:00 98.2 65 18 116/53 (74) 100 05/31/19 12:00 63 05/31/19 09:00 Nasal Cannula 2.0 05/31/19 08:41 119/47 05/31/19 08:40 119/47 05/31/19 08:00 69 05/31/19 08:00 98.4 71 19 119/47 (71) 93 05/31/19 04:00 67 05/31/19 04:00 98.2 70 19 115/55 (75) 98 05/31/19 00:10 84 05/31/19 00:05 77 05/31/19 00:00 69 05/31/19 00:00 77 05/31/19 00:00 98.1 77 19 120/53 (75) 98 05/30/19 22:11 Nasal Cannula 2.0 28 05/30/19 22:09 92 Nasal Cannula 2.0 28 05/30/19 21:00 Nasal Cannula 2.0 05/30/19 20:00 75 05/30/19 20:00 98.9 71 19 113/53 (73) 98 05/30/19 16:30 78 05/30/19 16:00 98.3 67 20 121/72 (88) 67 General Appearance: no apparent distress EENT: PERRL/EOMI Neck: non-tender, JVD Rhythm: NSR Cardiovascular: normal rate Respiratory/Chest: lungs clear Abdomen: non tender Extremities: trace edema Intake and Output 05/30/19 05/31/19 18:59 06:59 Intake Total 380 ml Balance 380 ml Intake Oral 380 ml # Voids 3 4 Laboratory Tests Test 05/31/19 07:08 White Blood Count 9.8 K/UL (4.8-10.8) Red Blood Count 3.88 M/UL (4.20-5.40) L Hemoglobin 8.4 G/DL (12.0-16.0) L Hematocrit 29.5 % (37.0-47.0) L Mean Corpuscular Volume 76 FL (80-99) L Mean Corpuscular Hemoglobin 21.6 PG (27.0-31.0) L Mean Corpuscular Hemoglobin Concent 28.4 G/DL (32.0-36.0) L Red Cell Distribution Width 17.5 % (11.6-14.8) H Platelet Count 261 K/UL (150-450) Mean Platelet Volume 6.9 FL (6.5-10.1) Neutrophils (%) (Auto) 68.9 % (45.0-75.0) Lymphocytes (%) (Auto) 18.6 % (20.0-45.0) L Monocytes (%) (Auto) 5.0 % (1.0-10.0) Eosinophils (%) (Auto) 6.8 % (0.0-3.0) H Basophils (%) (Auto) 0.7 % (0.0-2.0) Sodium Level 143 MMOL/L (136-145) Potassium Level 4.1 MMOL/L (3.5-5.1) Chloride Level 103 MMOL/L (98-107) Carbon Dioxide Level 31 MMOL/L (21-32) Anion Gap 9 mmol/L (5-15) Blood Urea Nitrogen 38 mg/dL (7-18) H Creatinine 2.5 MG/DL (0.55-1.30) H Estimat Glomerular Filtration Rate mL/min (>60) Glucose Level 211 MG/DL (74-106) H Calcium Level 9.2 MG/DL (8.5-10.1) Milli Tate MD May 31, 2019 14:05
--- NOTE | 2019-05-31 14:09 | Cardiology Progress Note ---
Assessment/Plan Assessment/Plan she is compalining on chest pain, will go ahead with stress NUC Subjective Subjective the patient is complaining on chest pain Objective Last 24 Hour Vital Signs Date Time Temp Pulse Resp B/P (MAP) Pulse Ox O2 Delivery O2 Flow Rate FiO2 05/31/19 12:00 98.2 65 18 116/53 (74) 100 05/31/19 12:00 63 05/31/19 09:00 Nasal Cannula 2.0 05/31/19 08:41 119/47 05/31/19 08:40 119/47 05/31/19 08:00 69 05/31/19 08:00 98.4 71 19 119/47 (71) 93 05/31/19 04:00 67 05/31/19 04:00 98.2 70 19 115/55 (75) 98 05/31/19 00:10 84 05/31/19 00:05 77 05/31/19 00:00 69 05/31/19 00:00 77 05/31/19 00:00 98.1 77 19 120/53 (75) 98 05/30/19 22:11 Nasal Cannula 2.0 28 05/30/19 22:09 92 Nasal Cannula 2.0 28 05/30/19 21:00 Nasal Cannula 2.0 05/30/19 20:00 75 05/30/19 20:00 98.9 71 19 113/53 (73) 98 05/30/19 16:30 78 05/30/19 16:00 98.3 67 20 121/72 (88) 67 Intake and Output 05/30/19 05/31/19 18:59 06:59 Intake Total 380 ml Balance 380 ml Intake Oral 380 ml # Voids 3 4 Laboratory Tests Test 05/31/19 07:08 White Blood Count 9.8 K/UL (4.8-10.8) Red Blood Count 3.88 M/UL (4.20-5.40) L Hemoglobin 8.4 G/DL (12.0-16.0) L Hematocrit 29.5 % (37.0-47.0) L Mean Corpuscular Volume 76 FL (80-99) L Mean Corpuscular Hemoglobin 21.6 PG (27.0-31.0) L Mean Corpuscular Hemoglobin Concent 28.4 G/DL (32.0-36.0) L Red Cell Distribution Width 17.5 % (11.6-14.8) H Platelet Count 261 K/UL (150-450) Mean Platelet Volume 6.9 FL (6.5-10.1) Neutrophils (%) (Auto) 68.9 % (45.0-75.0) Lymphocytes (%) (Auto) 18.6 % (20.0-45.0) L Monocytes (%) (Auto) 5.0 % (1.0-10.0) Eosinophils (%) (Auto) 6.8 % (0.0-3.0) H Basophils (%) (Auto) 0.7 % (0.0-2.0) Sodium Level 143 MMOL/L (136-145) Potassium Level 4.1 MMOL/L (3.5-5.1) Chloride Level 103 MMOL/L (98-107) Carbon Dioxide Level 31 MMOL/L (21-32) Anion Gap 9 mmol/L (5-15) Blood Urea Nitrogen 38 mg/dL (7-18) H Creatinine 2.5 MG/DL (0.55-1.30) H Estimat Glomerular Filtration Rate mL/min (>60) Glucose Level 211 MG/DL (74-106) H Calcium Level 9.2 MG/DL (8.5-10.1) Milli Tate MD May 31, 2019 14:08
[2019-05-31 16:09] VITALS: BP 109/62
[2019-05-31] MEDS: Xarelto 15mg tab ORAL SCH (17:06)
--- NOTE | 2019-05-31 19:23 | NUR ---
NURSE NOTES: Received pt and report from GABY Ronquillo. Observed pt resting in bed with both eyes open and watching television. Pt is A/Ox4. 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 Bed is in the lowest position and locked. Call light within reach. No signs and symptoms of acute distress noted at this time. Will continue plan of care.
--- NOTE | 2019-05-31 19:25 | GI Progress Note ---
Assessment/Plan Assessment/Plan see full dictation Objective Last 24 Hour Vital Signs Date Time Temp Pulse Resp B/P (MAP) Pulse Ox O2 Delivery O2 Flow Rate FiO2 05/31/19 16:09 98.2 65 20 109/62 (78) 92 05/31/19 16:00 65 05/31/19 12:00 98.2 65 18 116/53 (74) 100 05/31/19 12:00 63 05/31/19 09:00 Nasal Cannula 2.0 05/31/19 08:41 119/47 05/31/19 08:40 119/47 05/31/19 08:35 Nasal Cannula 2.0 28 05/31/19 08:35 94 Nasal Cannula 2.0 28 05/31/19 08:00 69 05/31/19 08:00 98.4 71 19 119/47 (71) 93 05/31/19 04:00 67 05/31/19 04:00 98.2 70 19 115/55 (75) 98 05/31/19 00:10 84 05/31/19 00:05 77 05/31/19 00:00 69 05/31/19 00:00 77 05/31/19 00:00 98.1 77 19 120/53 (75) 98 05/30/19 22:11 Nasal Cannula 2.0 28 05/30/19 22:09 92 Nasal Cannula 2.0 28 05/30/19 21:00 Nasal Cannula 2.0 05/30/19 20:00 75 05/30/19 20:00 98.9 71 19 113/53 (73) 98 Intake and Output 05/30/19 05/31/19 19:00 07:00 Intake Total 260 ml 120 ml Balance 260 ml 120 ml Intake Oral 260 ml 120 ml # Voids 3 4 Laboratory Tests Test 05/31/19 07:08 05/31/19 15:00 White Blood Count 9.8 K/UL (4.8-10.8) Red Blood Count 3.88 M/UL (4.20-5.40) L Hemoglobin 8.4 G/DL (12.0-16.0) L Hematocrit 29.5 % (37.0-47.0) L Mean Corpuscular Volume 76 FL (80-99) L Mean Corpuscular Hemoglobin 21.6 PG (27.0-31.0) L Mean Corpuscular Hemoglobin Concent 28.4 G/DL (32.0-36.0) L Red Cell Distribution Width 17.5 % (11.6-14.8) H Platelet Count 261 K/UL (150-450) Mean Platelet Volume 6.9 FL (6.5-10.1) Neutrophils (%) (Auto) 68.9 % (45.0-75.0) Lymphocytes (%) (Auto) 18.6 % (20.0-45.0) L Monocytes (%) (Auto) 5.0 % (1.0-10.0) Eosinophils (%) (Auto) 6.8 % (0.0-3.0) H Basophils (%) (Auto) 0.7 % (0.0-2.0) Sodium Level 143 MMOL/L (136-145) Potassium Level 4.1 MMOL/L (3.5-5.1) Chloride Level 103 MMOL/L (98-107) Carbon Dioxide Level 31 MMOL/L (21-32) Anion Gap 9 mmol/L (5-15) Blood Urea Nitrogen 38 mg/dL (7-18) H Creatinine 2.5 MG/DL (0.55-1.30) H Estimat Glomerular Filtration Rate mL/min (>60) Glucose Level 211 MG/DL (74-106) H Calcium Level 9.2 MG/DL (8.5-10.1) Stool Occult Blood Pending Height (Feet): 5 Height (Inches): 9.00 Weight (Pounds): 226 Enrike Tamayo MD May 31, 2019 19:25
--- NOTE | 2019-05-31 19:37 | NUR ---
HAND-OFF: Report given to Louis Capps. Patient stable. Plan of care endorsed..
[2019-05-31 20:00] VITALS: BP 106/60
[2019-05-31] MEDS: Miralax 17gm pkt ORAL SCH (20:54)
[2019-06-01] VITALS: BP 114/57
--- NOTE | 2019-06-01 02:30 | Consultation ---
DATE OF CONSULTATION: 05/29/2019 CHIEF COMPLAINT: Abdominal pain. HISTORY OF PRESENT ILLNESS: This is a very pleasant 74-year-old female, admitted to the hospital with complaint of chest pain. The patient has a history of coronary artery disease and diabetes. The patient examined, complained of lower abdominal pain for three months, which cleared. Denies any obvious bleeding. No weight loss. No nausea. No vomiting. No dysphagia. No odynophagia. No family history of GI malignancies. Last colonoscopy many years ago. She does not know the results. PAST MEDICAL HISTORY: Diabetes, PE, hypertension, coronary artery disease, HI, CHF, and anemia. PAST SURGICAL HISTORY: Gallbladder and hysterectomy. ALLERGIES: No known drug allergies. MEDICATIONS: Please see medication reconciliation list. SOCIAL HISTORY: The patient is a former smoker. Denies any recent tobacco, alcohol, or drug abuse. REVIEW OF SYSTEMS: A 10-point review of system was performed and pertinent positives in HPI. PHYSICAL EXAMINATION: VITAL SIGNS: Temperature 98.2 degrees, pulse 64, respirations 20, and blood pressure is 109/62. HEENT: Normocephalic and atraumatic. Mild pale conjunctivae. NECK: Supple. No evidence of obvious lymphadenopathy. CARDIOVASCULAR: Regular rate and rhythm. Plus S1 and S2. LUNGS: Decreased breath sounds bilaterally on supine exam. ABDOMEN: Soft. Bowel sounds are present. Minimal tenderness to palpation in bilateral lower quadrants. No rebound. No guarding. No peritoneal sign. EXTREMITIES: No cyanosis, clubbing, or edema. LABORATORY DATA: White count is 9.8, hemoglobin 8.4, hematocrit 29, and platelet count is 261,000. Chem-7, sodium 143, potassium 4.1, BUN is 13, and creatinine is 2.5. ASSESSMENT: A 74-year-old female with chest pain and anemia, overall diarrhea, but no recent constipation. PLAN: Anemia workup. Bowel regimen. The patient is going for cardiac stress test tomorrow. Consider GI procedures if stress test is negative. Enrike Tamayo M.D. DR: John JOB#: [id number] CC:
[2019-06-01 04:00] VITALS: BP 113/68
[2019-06-01] MEDS: NovoLOG Insulin Flexpen SUBQ SCH ×4 (06:30→20:12)
[2019-06-01 07:01] LABS: HEMATOCRIT 26.9 % (37.0-47.0); HEMOGLOBIN 7.9 G/DL (12.0-16.0); MEAN CORPUSCULAR VOLUME 75 FL (80-99); PLATELET COUNT 240 K/UL (150-450); RED BLOOD COUNT 3.59 M/UL (4.20-5.40); RED CELL DISTRIBUTION WIDTH 17.8 % (11.6-14.8); WHITE BLOOD COUNT 10.5 K/UL (4.8-10.8)
[2019-06-01 07:21] LABS: ALANINE AMINOTRANSFERASE 11 U/L (12-78); ALBUMIN 2.9 G/DL (3.4-5.0); ALBUMIN/GLOBULIN RATIO 0.7 (1.0-2.7); ALKALINE PHOSPHATASE 97 U/L (46-116); ANION GAP 7 mmol/L (5-15); ASPARTATE AMINO TRANSFERASE 10 U/L (15-37); BILIRUBIN,TOTAL 0.4 MG/DL (0.2-1.0); BLOOD UREA NITROGEN 48 mg/dL (7-18); CALCIUM 8.7 MG/DL (8.5-10.1); CARBON DIOXIDE 28 MMOL/L (21-32); CHLORIDE 104 MMOL/L (98-107); CREATININE 2.7 MG/DL (0.55-1.30); POTASSIUM 4.4 MMOL/L (3.5-5.1); SODIUM 139 MMOL/L (136-145)
--- NOTE | 2019-06-01 07:45 | NUR ---
HAND-OFF: Report given to GBAY Thomas.
[2019-06-01 07:52] LABS: % IRON SATURATION 6 % (15-50); IRON 23 ug/dL (50-175); TOTAL IRON BINDING CAPACITY 378 ug/dL (250-450)
[2019-06-01 08:00] VITALS: BP 136/58
--- NOTE | 2019-06-01 08:02 | NUR ---
NURSE NOTES: Received report from GABY Capps. Patient in bed resting no active s/s cardiac, respiratory distress noticed at this time. Patient on 2L oxygen via [place], Patient on NPO at midnight for stress test schedule for today 06/01/19. IV on left hand 22G, asymptomatic, patent, intact. Bed in lowest position, side rails upx3, call light within reach, bedside commode at easy reach. Will continue to monitor.
--- NOTE | 2019-06-01 08:07 | NUR ---
NURSE NOTES: Paged Dr. Tate regarding Treadmill stress test schedule for today. Patient c/o SOB when walking, no history of asthma. Awaiting for callback, will continue to monitor.
--- NOTE | 2019-06-01 08:11 | General Progress Note ---
Assessment/Plan Assessment/Plan: Assessment - Iron deficiency anemia - chronic diffuse abd pain - Azoemia - chest pain Recommendations - cardiac w/u - laxative - check OB - Advised needs EGD/Colon given degree of anemia (inpatient or outpatient) Subjective Allergies: Coded Allergies: No Known Allergies (Unverified , 09/08/18) Subjective Feels OK for cardiac evaluation (+) BM yesterday diffuse chronic abd pain Iron deficiency anemia noted Objective Last 24 Hour Vital Signs Date Time Temp Pulse Resp B/P (MAP) Pulse Ox O2 Delivery O2 Flow Rate FiO2 06/01/19 04:00 97.9 68 19 113/68 (83) 96 06/01/19 04:00 72 06/01/19 00:00 97.9 69 18 114/57 (76) 94 06/01/19 00:00 64 05/31/19 21:00 Nasal Cannula 2.0 05/31/19 20:00 61 05/31/19 20:00 95 Nasal Cannula 2.0 28 05/31/19 20:00 97.6 66 17 106/60 (75) 95 05/31/19 16:09 98.2 65 20 109/62 (78) 92 05/31/19 16:00 65 05/31/19 12:00 98.2 65 18 116/53 (74) 100 05/31/19 12:00 63 05/31/19 09:00 Nasal Cannula 2.0 05/31/19 08:41 119/47 05/31/19 08:40 119/47 05/31/19 08:35 Nasal Cannula 2.0 28 05/31/19 08:35 94 Nasal Cannula 2.0 28 Intake and Output 05/31/19 06/01/19 19:00 07:00 Intake Total 280 ml 220 ml Balance 280 ml 220 ml Intake Oral 280 ml 220 ml # Voids 3 3 # Bowel Movements 1 Laboratory Tests 05/31/19 15:00: Stool Occult Blood [Pending] 06/01/19 06:33: White Blood Count 10.5, Red Blood Count 3.59L, Hemoglobin 7.9L, Hematocrit 26.9L , Mean Corpuscular Volume 75L, Mean Corpuscular Hemoglobin 22.1L, Mean Corpuscular Hemoglobin Concent 29.6L, Red Cell Distribution Width 17.8H, Platelet Count 240, Mean Platelet Volume 7.2, Neutrophils (%) (Auto) , Lymphocytes (%) (Auto) , Monocytes (%) (Auto) , Eosinophils (%) (Auto) , Basophils (%) (Auto) , Neutrophils % (Manual) [Pending], Lymphocytes % (Manual) [Pending], Platelet Estimate [Pending], Platelet Morphology [Pending], Sodium Level 139, Potassium Level 4.4, Chloride Level 104, Carbon Dioxide Level 28, Anion Gap 7, Blood Urea Nitrogen 48H, Creatinine 2.7H, Estimat Glomerular Filtration Rate , Glucose Level 221H, Calcium Level 8.7, Iron Level 23L, Total Iron Binding Capacity 378, Percent Iron Saturation 6L, Unsaturated Iron Binding 355H, Total Bilirubin 0.4, Aspartate Amino Transf (AST/SGOT) 10L, Alanine Aminotransferase (ALT/SGPT) 11L, Alkaline Phosphatase 97, Total Protein 7.2, Albumin 2.9L, Globulin 4.3, Albumin/Globulin Ratio 0.7L, Vitamin B12 Level 301, Folate 12.7 Height (Feet): 5 Height (Inches): 9.00 Weight (Pounds): 226 Objective WDWN NCAT supple CTA RRR abd soft ND no edema non focal Awilda Augustin MD Jun 01, 2019 08:11
--- NOTE | 2019-06-01 08:14 | Pre-Procedure Note/Attestation ---
Pre-Procedure Note/Attestation Complete Prior to Procedure Planned Procedure: not applicable Procedure Narrative: screening colonoscopy Indications for Procedure Pre-Operative Diagnosis: screening colonoscopy Attestation I attest that I discussed the nature of the procedure; its benefits; risks and complications; and alternatives (and the risks and benefits of such alternatives ), prior to the procedure, with the patient (or the patient's legal dermatology sales representative). I attest that, if there was a reasonable possibility of needing a blood transfusion, the patient (or the patient's legal dermatology sales representative) was given the [facility] standardized written summary, pursuant to the Nicholas Ulysses Blood Safety Act ([place] Health and Safety Code # 1645, as amended). I attest that I re-evaluated the patient just prior to the surgery and that there has been no change in the patient's H&P, except as documented below: Awilda Augustin MD Jun 01, 2019 08:14
--- NOTE | 2019-06-01 08:14 | Short Stay Surgery H&P ---
History of Present Illness History of Present Illness Chief Complaint see typed &P HPI Phyllis Cameron is a 74 year old female who was admitted on May 29, 2019 at 00 :24 for Dyspnea,Anemia Patient History Allergies: Coded Allergies: No Known Allergies (Unverified , 09/08/18) Medication History Scheduled Clonidine Hcl* (Catapres*), 0.05 MG ORAL BID, (Reported) Fluticasone Propionate* (Fluticasone Propionate*), 1 SPRAY NASAL DAILY, ( Reported) Furosemide* (Lasix*), 40 MG ORAL TWICE A DAY Gabapentin* (Gabapentin*), 300 MG ORAL THREE TIMES A DAY, (Reported) Glimepiride* (Glimepiride*), 4 MG ORAL BIDAC, (Reported) Hum Insulin Nph/Reg Insulin Hm (Novolin 70-30 100 Unit/Ml Vial), 62 UNITS SQ BIDAC, (Reported) Lisinopril (Lisinopril*), 5 MG ORAL DAILY, (Reported) Losartan Potassium* (Losartan Potassium*), 100 MG ORAL DAILY, (Reported) Metoclopramide Hcl* (Metoclopramide Hcl*), 5 MG ORAL BIDAC, (Reported) Pantoprazole* (Pantoprazole*), 40 MG ORAL DAILY, (Reported) Potassium Chloride (Potassium Chloride), 10 MEQ PO BID, (Reported) Pravastatin Sod (Pravastatin Sod), 40 MG ORAL BEDTIME, (Reported) Pravastatin Sod* (Pravastatin Sod*), 40 MG ORAL BEDTIME, (Reported) Ranitidine Hcl* (Zantac*), 300 MG ORAL DAILY, (Reported) Rivaroxaban (Xarelto*), 15 MG ORAL BID, (Reported) Rivaroxaban (Xarelto*), 15 MG ORAL DAILY, (Reported) Scheduled PRN Tramadol Hcl* (Ultram*), 50 MG ORAL TID PRN for For Pain, (Reported) Miscellaneous Medications Estropipate (Estropipate), 3 MG PO, (Reported) Sodium Chloride (Saline Mist), 44 ML NS, (Reported) Physical Exam Vital Signs Last Vital Signs Date Time Temp Pulse Resp B/P (MAP) Pulse Ox O2 Delivery O2 Flow Rate FiO2 06/01/19 04:00 97.9 68 19 113/68 (83) 96 05/31/19 21:00 Nasal Cannula 2.0 05/31/19 20:00 28 Labs Laboratory Tests Test 05/31/19 15:00 06/01/19 06:33 Stool Occult Blood Pending White Blood Count 10.5 K/UL (4.8-10.8) Red Blood Count 3.59 M/UL (4.20-5.40) L Hemoglobin 7.9 G/DL (12.0-16.0) L Hematocrit 26.9 % (37.0-47.0) L Mean Corpuscular Volume 75 FL (80-99) L Mean Corpuscular Hemoglobin 22.1 PG (27.0-31.0) L Mean Corpuscular Hemoglobin Concent 29.6 G/DL (32.0-36.0) L Red Cell Distribution Width 17.8 % (11.6-14.8) H Platelet Count 240 K/UL (150-450) Mean Platelet Volume 7.2 FL (6.5-10.1) Neutrophils (%) (Auto) % (45.0-75.0) Lymphocytes (%) (Auto) % (20.0-45.0) Monocytes (%) (Auto) % (1.0-10.0) Eosinophils (%) (Auto) % (0.0-3.0) Basophils (%) (Auto) % (0.0-2.0) Neutrophils % (Manual) Pending Lymphocytes % (Manual) Pending Platelet Estimate Pending Platelet Morphology Pending Sodium Level 139 MMOL/L (136-145) Potassium Level 4.4 MMOL/L (3.5-5.1) Chloride Level 104 MMOL/L (98-107) Carbon Dioxide Level 28 MMOL/L (21-32) Anion Gap 7 mmol/L (5-15) Blood Urea Nitrogen 48 mg/dL (7-18) H Creatinine 2.7 MG/DL (0.55-1.30) H Estimat Glomerular Filtration Rate mL/min (>60) Glucose Level 221 MG/DL (74-106) H Calcium Level 8.7 MG/DL (8.5-10.1) Iron Level 23 ug/dL (50-175) L Total Iron Binding Capacity 378 ug/dL (250-450) Percent Iron Saturation 6 % (15-50) L Unsaturated Iron Binding 355 ug/dL (112-346) H Total Bilirubin 0.4 MG/DL (0.2-1.0) Aspartate Amino Transf (AST/SGOT) 10 U/L (15-37) L Alanine Aminotransferase (ALT/SGPT) 11 U/L (12-78) L Alkaline Phosphatase 97 U/L (46-116) Total Protein 7.2 G/DL (6.4-8.2) Albumin 2.9 G/DL (3.4-5.0) L Globulin 4.3 g/dL Albumin/Globulin Ratio 0.7 (1.0-2.7) L Vitamin B12 Level 301 PG/ML (193-986) Folate 12.7 NG/ML (8.6-58.9) Plan Attestation Are the patient's medical conditions optimized for surgery? Awilda Augustin MD Jun 01, 2019 08:14
[2019-06-01] MEDS: Sorbitol Solution UD 30ml ORAL SCH ×2 (08:15→09:39)
[2019-06-01] MEDS: Losartan 50mg tab ORAL SCH (09:00)
[2019-06-01] MEDS: Docusate 100mg cap ORAL SCH ×2 (09:00→17:21)
[2019-06-01] MEDS: Ocean Nasal Spray 45ml NASAL SCH ×2 (09:39→17:03)
[2019-06-01] MEDS: Furosemide 40mg tab ORAL SCH ×2 (09:41→17:03)
[2019-06-01] MEDS: Lisinopril 2.5mg tab ORAL SCH (09:42)
[2019-06-01] MEDS: Glimepiride 4mg tab ORAL SCH ×2 (09:42→17:03)
--- NOTE | 2019-06-01 09:45 | NUR ---
NURSE NOTES: Patient AOx4, refused Colace, Sorbitol, Losartan. Patient's right respected. Will continue to monitor.
--- NOTE | 2019-06-01 11:21 | NUR ---
CASE MANAGEMENT:REVIEW 05/31/19 SI: ANEMIA. CKD. CHEST PAIN W/HISTORY OF CAD 98.4 71 19 119/47 93% ON 2L/NC H/H-8.4/29.5 BUN+38 CR+2.5 IS: XARELTO PO QPM SS INSULIN AC+HS AMARYL PO BID LASIX PO BID LISINOPRIL PO QD COZAAR PO QD PROTONIX PO QAM : TELEMETRY STATUS 06/01/19 SI: ANEMIA. CKD. CHEST PAIN W/HISTORY OF CAD 98.3 67 20 136/58 94% ON 2L/NC H/H-7.9/26.9 BUN+48 CR+2.7 IS: XARELTO PO QPM SS INSULIN AC+HS AMARYL PO BID LASIX PO BID LISINOPRIL PO QD COZAAR PO QD PROTONIX PO QAM : TELEMETRY STATUS DCP: PATIENT IS FROM HOME PLAN: COLONOSCOPY HEMATOLOGY CONSULT STRESS TETS
--- NOTE | 2019-06-01 11:32 | NUR ---
*-*INSURANCE *-* ALL CLINICALS AND REVIEWS HAVE BEEN FAXED TO: [facility] Mintera F: [phone]
--- NOTE | 2019-06-01 11:53 | NUR ---
NURSE NOTES: Paged Dr. Tate regarding Lexiscan, per Dr. Tate, call Dr. Guillen. Called Dr. Guillen, per Dr. Guillen, change Treadmill to Lexiscan. Order noted, entered. Carried out. Will continue to monitor.
[2019-06-01 12:00] VITALS: BP 104/52
[2019-06-01] MEDS ORDERED: Lexiscan 0.4mg/5ml syringe IV SCH (12:00)
--- NOTE | 2019-06-01 13:01 | General Progress Note ---
Assessment/Plan Assessment/Plan: 1. Anemia, likely due to CKD 2. Hx of pulmonary emboli. 3. Chronic congestive heart failure, diastolic dysfunction. 4. Chronic kidney disease stage 4. 5. CKD 6. Chest pain, hx CAD having stress test and GI eval Hgb 7.9 - transfuse 1 u in view of chest pain hematology to see may need EPO Subjective Allergies: Coded Allergies: No Known Allergies (Unverified , 09/08/18) Objective Last 24 Hour Vital Signs Date Time Temp Pulse Resp B/P (MAP) Pulse Ox O2 Delivery O2 Flow Rate FiO2 06/01/19 09:42 136/58 06/01/19 09:00 136/58 06/01/19 09:00 Nasal Cannula 2.0 06/01/19 08:00 66 06/01/19 08:00 98.3 67 20 136/58 (84) 94 06/01/19 04:00 97.9 68 19 113/68 (83) 96 06/01/19 04:00 72 06/01/19 00:00 97.9 69 18 114/57 (76) 94 06/01/19 00:00 64 05/31/19 21:00 Nasal Cannula 2.0 05/31/19 20:00 61 05/31/19 20:00 95 Nasal Cannula 2.0 28 05/31/19 20:00 97.6 66 17 106/60 (75) 95 05/31/19 16:09 98.2 65 20 109/62 (78) 92 05/31/19 16:00 65 Intake and Output 05/31/19 06/01/19 19:00 07:00 Intake Total 280 ml 220 ml Balance 280 ml 220 ml Intake Oral 280 ml 220 ml # Voids 3 3 # Bowel Movements 1 Laboratory Tests 05/31/19 15:00: Stool Occult Blood Positive 06/01/19 06:33: White Blood Count 10.5, Red Blood Count 3.59L, Hemoglobin 7.9L, Hematocrit 26.9L , Mean Corpuscular Volume 75L, Mean Corpuscular Hemoglobin 22.1L, Mean Corpuscular Hemoglobin Concent 29.6L, Red Cell Distribution Width 17.8H, Platelet Count 240, Mean Platelet Volume 7.2, Neutrophils (%) (Auto) , Lymphocytes (%) (Auto) , Monocytes (%) (Auto) , Eosinophils (%) (Auto) , Basophils (%) (Auto) , Differential Total Cells Counted 100, Neutrophils % ( Manual) 64, Lymphocytes % (Manual) 19L, Monocytes % (Manual) 7, Eosinophils % ( Manual) 7H, Basophils % (Manual) 3H, Band Neutrophils 0, Platelet Estimate Adequate, Platelet Morphology Normal, Hypochromasia 3+, Anisocytosis 1+, Microcytosis 1+, Sodium Level 139, Potassium Level 4.4, Chloride Level 104, Carbon Dioxide Level 28, Anion Gap 7, Blood Urea Nitrogen 48H, Creatinine 2.7H, Estimat Glomerular Filtration Rate , Glucose Level 221H, Calcium Level 8.7, Iron Level 23L, Total Iron Binding Capacity 378, Percent Iron Saturation 6L, Unsaturated Iron Binding 355H, Ferritin 4L, Total Bilirubin 0.4, Aspartate Amino Transf (AST/SGOT) 10L, Alanine Aminotransferase (ALT/SGPT) 11L, Alkaline Phosphatase 97, Total Protein 7.2, Albumin 2.9L, Globulin 4.3, Albumin/Globulin Ratio 0.7L, Vitamin B12 Level 301, Folate 12.7, Free Thyroxine 0.85, Triiodothyonine (T3) [Pending] Height (Feet): 5 Height (Inches): 9.00 Weight (Pounds): 226 Rolando Balbuena MD Jun 01, 2019 13:01
--- NOTE | 2019-06-01 15:42 | Diagnostic Imaging Report ---
Indications: 74-year-old female with chest pain Technique: Single day single isotope protocol utilized. Initially, resting images obtained using IV administration 10.6 millicuries 99M technetium Myoview. Subsequently, patient underwent lexiscan stress testing. See cardiology report for details. During plexus infusion, IV administration 32 mCi 99 M technetium Myoview. SPECT and planar images obtained. SPECT images gated to 8 phases of the cardiac cycle were also obtained, and reformatted into cine images for evaluation of ejection fraction. Comparison: 09/04/2017 Findings: Presence or absence of symptoms infusion is not described on the cardiology report. Per cardiology report, resting EKG demonstrates normal sinus rhythm. Imaging demonstrates no fixed nor reversible post stress perfusion defects. Normal cardiac chamber size. Calculated post stress ejection fraction 72%. No focal wall motion abnormality. No significant change when compared to prior study Impression: Nonischemic clinical response to pharmacologic stress, per cardiology report Nonischemic electrocardiographic response to pharmacologic stress, per cardiology report No imaging findings to suggest ischemia, at level of stress achieved. Calculated post stress ejection fraction greater than 70%
[2019-06-01 16:00] VITALS: BP 123/50
[2019-06-01] MEDS: Xarelto 15mg tab ORAL SCH (17:03)
--- NOTE | 2019-06-01 19:22 | NUR ---
NURSE NOTES: Blood transfusion began 1551, no s/s reaction at this time. Will continue to monitor.
--- NOTE | 2019-06-01 19:23 | NUR ---
HAND-OFF: Report given to GABY Mon.
--- NOTE | 2019-06-01 19:25 | NUR ---
NURSE NOTES: patient received. patient in no acute distress at this time. patient complains of no pain at this time. patient awake alert and oriented x4. patient IV intact patient and asymptomatic. bed side commode at bedside. fall risk band on. bed in lowest position and locked. call light within reach. bed alarm on. will continue to monitor.
[2019-06-01 20:00] VITALS: BP 134/57
[2019-06-01] MEDS: Miralax 17gm pkt ORAL SCH (20:10)
[2019-06-01] MEDS: Iron Sucrose 100 MG in NS 55 ML IV SCH (20:11)
--- NOTE | 2019-06-01 20:56 | Cardiology Progress Note ---
Assessment/Plan Assessment/Plan 1. Anemia, likely due to CKD 2. Hx of pulmonary emboli. 3. Chronic congestive heart failure, diastolic dysfunction. 4. Chronic kidney disease stage 4. 5. CKD 6. Chest pain, hx CAD 7. 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 neg med reviwed will dc iv lasix bnp normal is on losaarna will dc lisinopril cxr ne g hgb dropped min has soem edema Objective Last 24 Hour Vital Signs Date Time Temp Pulse Resp B/P (MAP) Pulse Ox O2 Delivery O2 Flow Rate FiO2 06/01/19 16:00 98.2 75 20 123/50 (74) 95 06/01/19 16:00 72 06/01/19 12:00 62 06/01/19 12:00 98.6 66 20 104/52 (69) 98 06/01/19 09:42 136/58 06/01/19 09:00 75 75 90 06/01/19 09:00 136/58 06/01/19 09:00 Nasal Cannula 2.0 06/01/19 08:00 66 06/01/19 08:00 98.3 67 20 136/58 (84) 94 06/01/19 04:00 97.9 68 19 113/68 (83) 96 06/01/19 04:00 72 06/01/19 00:00 97.9 69 18 114/57 (76) 94 06/01/19 00:00 64 05/31/19 21:00 Nasal Cannula 2.0 Intake and Output 05/31/19 06/01/19 19:00 07:00 Intake Total 280 ml 220 ml Balance 280 ml 220 ml Intake Oral 280 ml 220 ml # Voids 3 3 # Bowel Movements 1 Laboratory Tests Test 06/01/19 06:33 White Blood Count 10.5 K/UL (4.8-10.8) Red Blood Count 3.59 M/UL (4.20-5.40) L Hemoglobin 7.9 G/DL (12.0-16.0) L Hematocrit 26.9 % (37.0-47.0) L Mean Corpuscular Volume 75 FL (80-99) L Mean Corpuscular Hemoglobin 22.1 PG (27.0-31.0) L Mean Corpuscular Hemoglobin Concent 29.6 G/DL (32.0-36.0) L Red Cell Distribution Width 17.8 % (11.6-14.8) H Platelet Count 240 K/UL (150-450) Mean Platelet Volume 7.2 FL (6.5-10.1) Neutrophils (%) (Auto) % (45.0-75.0) Lymphocytes (%) (Auto) % (20.0-45.0) Monocytes (%) (Auto) % (1.0-10.0) Eosinophils (%) (Auto) % (0.0-3.0) Basophils (%) (Auto) % (0.0-2.0) Differential Total Cells Counted 100 Neutrophils % (Manual) 64 % (45-75) Lymphocytes % (Manual) 19 % (20-45) L Monocytes % (Manual) 7 % (1-10) Eosinophils % (Manual) 7 % (0-3) H Basophils % (Manual) 3 % (0-2) H Band Neutrophils 0 % (0-8) Platelet Estimate Adequate Platelet Morphology Normal Hypochromasia 3+ Anisocytosis 1+ Microcytosis 1+ Sodium Level 139 MMOL/L (136-145) Potassium Level 4.4 MMOL/L (3.5-5.1) Chloride Level 104 MMOL/L (98-107) Carbon Dioxide Level 28 MMOL/L (21-32) Anion Gap 7 mmol/L (5-15) Blood Urea Nitrogen 48 mg/dL (7-18) H Creatinine 2.7 MG/DL (0.55-1.30) H Estimat Glomerular Filtration Rate mL/min (>60) Glucose Level 221 MG/DL (74-106) H Calcium Level 8.7 MG/DL (8.5-10.1) Iron Level 23 ug/dL (50-175) L Total Iron Binding Capacity 378 ug/dL (250-450) Percent Iron Saturation 6 % (15-50) L Unsaturated Iron Binding 355 ug/dL (112-346) H Ferritin 4 NG/ML (8-388) L Total Bilirubin 0.4 MG/DL (0.2-1.0) Aspartate Amino Transf (AST/SGOT) 10 U/L (15-37) L Alanine Aminotransferase (ALT/SGPT) 11 U/L (12-78) L Alkaline Phosphatase 97 U/L (46-116) Total Protein 7.2 G/DL (6.4-8.2) Albumin 2.9 G/DL (3.4-5.0) L Globulin 4.3 g/dL Albumin/Globulin Ratio 0.7 (1.0-2.7) L Vitamin B12 Level 301 PG/ML (193-986) Folate 12.7 NG/ML (8.6-58.9) Free Thyroxine 0.85 NG/DL (0.76-1.46) Triiodothyonine (T3) Pending Joe Guillen MD Jun 01, 2019 20:56
[2019-06-02] VITALS: BP 158/56
[2019-06-02 04:00] VITALS: BP 168/69
[2019-06-02] MEDS: NovoLOG Insulin Flexpen SUBQ SCH ×4 (05:45→20:19)
--- NOTE | 2019-06-02 07:22 | NUR ---
HAND-OFF: Report given to klaus bradshaw.
--- NOTE | 2019-06-02 07:25 | NUR ---
NURSE NOTES: Received patient and report from GABY Mon. Denies any pain. No s/s of distress or discomfort noted. Patient is resting in bed comfortably. Bed in low and locked position, brakes engaged for safety. Call light within reach, bedside table within reach. Will continue with the plan of care.
[2019-06-02 08:00] VITALS: BP 120/62
--- NOTE | 2019-06-02 08:20 | Consultation ---
History of Present Illness General Chief Complaint: Chest Pain Present Illness Allergies: Coded Allergies: No Known Allergies (Unverified , 09/08/18) Medication History Scheduled Clonidine Hcl* (Catapres*), 0.05 MG ORAL BID, (Reported) Fluticasone Propionate* (Fluticasone Propionate*), 1 SPRAY NASAL DAILY, ( Reported) Furosemide* (Lasix*), 40 MG ORAL TWICE A DAY Gabapentin* (Gabapentin*), 300 MG ORAL THREE TIMES A DAY, (Reported) Glimepiride* (Glimepiride*), 4 MG ORAL BIDAC, (Reported) Hum Insulin Nph/Reg Insulin Hm (Novolin 70-30 100 Unit/Ml Vial), 62 UNITS SQ BIDAC, (Reported) Lisinopril (Lisinopril*), 5 MG ORAL DAILY, (Reported) Losartan Potassium* (Losartan Potassium*), 100 MG ORAL DAILY, (Reported) Metoclopramide Hcl* (Metoclopramide Hcl*), 5 MG ORAL BIDAC, (Reported) Pantoprazole* (Pantoprazole*), 40 MG ORAL DAILY, (Reported) Potassium Chloride (Potassium Chloride), 10 MEQ PO BID, (Reported) Pravastatin Sod (Pravastatin Sod), 40 MG ORAL BEDTIME, (Reported) Pravastatin Sod* (Pravastatin Sod*), 40 MG ORAL BEDTIME, (Reported) Ranitidine Hcl* (Zantac*), 300 MG ORAL DAILY, (Reported) Rivaroxaban (Xarelto*), 15 MG ORAL BID, (Reported) Rivaroxaban (Xarelto*), 15 MG ORAL DAILY, (Reported) Scheduled PRN Tramadol Hcl* (Ultram*), 50 MG ORAL TID PRN for For Pain, (Reported) Miscellaneous Medications Estropipate (Estropipate), 3 MG PO, (Reported) Sodium Chloride (Saline Mist), 44 ML NS, (Reported) Patient History Healthcare decision maker Resuscitation status Full Code Advanced Directive on File Physical Exam Last 24 Hour Vital Signs Date Time Temp Pulse Resp B/P (MAP) Pulse Ox O2 Delivery O2 Flow Rate FiO2 06/02/19 04:00 63 06/02/19 04:00 98.1 76 18 168/69 (102) 96 06/02/19 00:00 98.2 72 18 158/56 (90) 97 06/02/19 00:00 77 06/01/19 21:00 Nasal Cannula 2.0 06/01/19 20:00 75 06/01/19 20:00 97.8 76 18 134/57 (82) 95 06/01/19 16:00 98.2 75 20 123/50 (74) 95 06/01/19 16:00 72 06/01/19 12:00 62 06/01/19 12:00 98.6 66 20 104/52 (69) 98 06/01/19 09:42 136/58 06/01/19 09:00 75 75 90 06/01/19 09:00 136/58 06/01/19 09:00 Nasal Cannula 2.0 Intake and Output 06/01/19 06/02/19 19:00 07:00 Intake Total 460 ml 240 ml Balance 460 ml 240 ml Intake Oral 460 ml 240 ml # Voids 4 2 # Bowel Movements 1 Height (Feet): 5 Height (Inches): 9.00 Weight (Pounds): 226 Medications Current Medications Medications (Trade) Dose Ordered Sig/Mary Route PRN Reason Start Time Stop Time Status Last Admin Dose Admin Clonidine HCl (Catapres Tab) 0.1 mg Q6H PRN ORAL For High Blood Pressure 05/29/19 03:15 06/28/19 03:14 Dextrose (Dextrose 50%) 25 ml Q30M PRN IV Hypoglycemia 05/29/19 08:00 06/28/19 07:59 Dextrose (Dextrose 50%) 50 ml Q30M PRN IV Hypoglycemia 05/29/19 08:00 06/28/19 07:59 Docusate Sodium (Colace) 100 mg TWICE A DAY ORAL 06/01/19 09:00 07/01/19 08:59 Famotidine (Pepcid) 20 mg ACBREAKFAST ORAL 05/29/19 06:30 06/28/19 06:29 06/02/19 05:42 Gabapentin (Neurontin) 300 mg DAILY ORAL 05/29/19 09:00 06/28/19 08:59 06/01/19 09:42 Glimepiride (Amaryl) 4 mg BID ORAL 05/29/19 10:15 06/28/19 10:14 06/01/19 17:03 Insulin Aspart (NovoLOG Mix 70/ 30) 62 units BIAC SUBQ 05/29/19 06:30 06/28/19 06:29 06/02/19 05:44 Insulin Aspart (NovoLOG) BEFORE MEALS AND HS SUBQ 05/29/19 11:30 06/28/19 11:29 06/02/19 05:45 Iron Sucrose 100 mg/Sodium Chloride 60 ml @ 240 mls/hr BEDTIME IV 06/01/19 21:00 06/05/19 21:14 06/01/19 20:11 Losartan Potassium (Cozaar) 100 mg DAILY ORAL 05/29/19 09:00 06/28/19 08:59 05/31/19 08:40 Pantoprazole (Protonix) 40 mg ACBREAKFAST ORAL 05/29/19 06:30 06/28/19 06:29 06/02/19 05:42 Polyethylene Glycol (Miralax) 17 gm BEDTIME ORAL 05/31/19 21:00 06/30/19 20:59 06/01/19 20:10 Pravastatin Sodium (Pravachol) 40 mg BEDTIME ORAL 05/29/19 21:00 06/28/19 20:59 06/01/19 20:10 Rivaroxaban (Xarelto) 15 mg QPM ORAL 05/30/19 16:30 06/28/19 08:59 06/01/19 17:03 Sodium Chloride ([place]ren Nasal [place]) 2 spray BID NASAL 05/29/19 09:00 06/28/19 08:59 06/01/19 17:03 Tramadol HCl (Ultram) 50 mg TID PRN ORAL For Pain 05/29/19 03:15 06/05/19 03:14 05/31/19 00:54 Assessment/Plan Assessment/Plan: Hematology Consultation SAQIB MD: Rolando Balbuena [facility]: Anemia, iron deficiency, ongoing DOS: 06/02/19 HPI 74y old female p/w ER with complaints of chest pain or shortness of breath. The patient states that she the symptoms for the past 2 weeks. She states that her symptoms are primarily with exertion. She states that when she walks she will get chest pain. She does have a history of a PE and uses oxygen at home. 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 She states she was diagnosed with this about 1 year ago. She denies cough or congestion. She denies fever or chills. She denies abdominal pain. She denies nausea or vomiting. She has no other complaints. She states that she is also chronically anemic. She states that she was seen by her primary care physician who was concerned about her hemoglobin which has been worsening. Noted to have ongoing anemia and heme was consulted. Coded Allergies: No Known Allergies (Unverified , 09/08/18) Past Medical History: see triage record, NH, CAD, CHF, other - PE Social History: Denies: smoking, alcohol use, drug use Reviewed Nursing Documentation: PMH: Agreed; PSxH: Agreed Hx Cardiac Problems: Yes - CHF Hx Hypertension: Yes Hx Asthma: No - PE Hx Diabetes: Yes Hx Cancer: No Hx Gastrointestinal Problems: No Hx Neurological Problems: No Review of systems: negative except mentioned in HPI PE Vital Signs Gen: no apparent distress, alert, GCS 15, nt Neck: full range of motion, supple/symm/no masses Respiratory: chest non-tender, lungs clear, normal breath sounds Cv: regular rate, rhythm, no edema GI: normal bowel sounds, non tender, soft, bt, nd Musculoskeletal: back normal, normal range of motion, non-tender Labs: reviewed Imaging: noted Assessment and Recs: # Anemia of iron deficiency in the setting of anticoagulant (xarelto) use, would recommend evaluation of Gi bleed, has been seen by gi --> consider to proceed with endoscopy as per Gi, cards clearance --> in this setting xarelto is likely causing any bleed to become exacerbated --> anemia panel has been reviewed, FERRITIN SEVERELY LOW --> at this time, continue on iv iron 100mg X 5 days and may need outpatient iron as well --> smear to be reviewed, ordered, no schistocytes noted --> if no bleed found by endoscopy, consider capsule eval --> r/o malignancy, tumor markers ordered, screen test --> given recurrent PE, would continue xarelto unless continuous bleed --> in meantime, given cr stable 2-3, hold off on epo (the problem is ongoing bleed) # Recurrent PE, per patient 1st PE, she did not receive any anticoagulant --> at this time, continue xarelto lifelong or similar anticoagulant --> does not have dvt of lower ext # CHF, diastolic dysfunction --> as per cards eval # 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 Jatinder Melchor MD Jun 02, 2019 08:20
[2019-06-02] MEDS: Glimepiride 4mg tab ORAL SCH ×2 (08:36→17:07)
[2019-06-02] MEDS: Losartan 50mg tab ORAL SCH (08:39)
[2019-06-02] MEDS: Docusate 100mg cap ORAL SCH ×2 (08:39→17:07)
[2019-06-02] MEDS: Ocean Nasal Spray 45ml NASAL SCH ×2 (08:49→17:12)
[2019-06-02] MEDS ORDERED: Isovue-300 100ml vial INJ PRN (09:30)
[2019-06-02 12:00] VITALS: BP 125/59
--- NOTE | 2019-06-02 12:09 | General Progress Note ---
Assessment/Plan Assessment/Plan: 1. Anemia, likely due to CKD and GI bleed 2. Hx of pulmonary emboli. 3. Chronic congestive heart failure, diastolic dysfunction. 4. Chronic kidney disease stage 4. 5. GI bleeding, stool + OB, low ferritin 6. Chest pain, hx CAD; neg stress test disc w RN, GI - will have abd CT and endoscopy disc w hematology - EPO, iron Subjective Constitutional: Reports: no symptoms Gastrointestinal/Abdominal: Reports: abdominal pain Allergies: Coded Allergies: No Known Allergies (Unverified , 09/08/18) Objective Last 24 Hour Vital Signs Date Time Temp Pulse Resp B/P (MAP) Pulse Ox O2 Delivery O2 Flow Rate FiO2 06/02/19 09:00 67 74 73 06/02/19 09:00 Nasal Cannula 2.0 06/02/19 08:39 120/62 06/02/19 08:00 79 06/02/19 08:00 98.6 66 18 120/62 (81) 97 06/02/19 04:00 63 06/02/19 04:00 98.1 76 18 168/69 (102) 96 06/02/19 00:00 98.2 72 18 158/56 (90) 97 06/02/19 00:00 77 06/01/19 21:00 Nasal Cannula 2.0 06/01/19 20:00 75 06/01/19 20:00 97.8 76 18 134/57 (82) 95 06/01/19 16:00 98.2 75 20 123/50 (74) 95 06/01/19 16:00 72 Intake and Output 06/01/19 06/02/19 19:00 07:00 Intake Total 460 ml 240 ml Balance 460 ml 240 ml Intake Oral 460 ml 240 ml # Voids 4 2 # Bowel Movements 1 Laboratory Tests 06/02/19 07:00: Carcinoembryonic Antigen [Pending], CA 19-9 Antigen [Pending], CA 125 Antigen [ Pending] Height (Feet): 5 Height (Inches): 9.00 Weight (Pounds): 226 General Appearance: no apparent distress Neck: supple Cardiovascular: normal rate Respiratory/Chest: lungs clear Abdomen: non tender Rolando Balbuena MD Jun 02, 2019 12:09
--- NOTE | 2019-06-02 14:11 | Diagnostic Imaging Report ---
Indication: Abdominal pain, anemia, chronic kidney disease Technique: Spiral acquisitions obtained through the abdomen and pelvis. No oral contrast utilized, per emergency room physician request No IV contrast utilized, per referring physician request.. Multiplanar reconstructions were generated. Total dose length product 1276.66 mGycm. CTDIvol(s) 26.25 mGy. Dose reduction achieved using automated exposure control Comparison: None Findings: There is evidence of insufficiency of the pelvic floor musculature, with the bladder and pelvic sling musculature extending well below the level of the ischia. There is colonic diverticulosis. No evidence of diverticulitis. The appendix is not definitely visualized, but no findings to suggest acute appendicitis are evident. Contrast has not traversed the entirety of the small bowel, but no small bowel distention is evident. No small bowel wall thickening. There is a small fat-containing ventral hernia noted. The distal esophagus, stomach, duodenum are unremarkable. Lack of IV contrast limits assessment of the solid organs. The gallbladder is surgically absent. There is a cyst within the liver anteriorly in segment 2. No biliary ductal dilatation. The pancreas, spleen, right adrenal are unremarkable. The left adrenal demonstrates a 1.7 cm nodule that demonstrates attenuation coefficient of 0-4 Hounsfield units, consistent with a benign adenoma. The kidneys are atrophic bilaterally. No renal or ureteral calculi, hydronephrosis, or hydroureter. No gross renal parenchymal mass or cyst demonstrated. No retroperitoneal or mesenteric mass or adenopathy. The uterus is presumed surgically absent. No pelvic mass or adenopathy.. There is focal mild ectasia of the infrarenal abdominal aorta, which is nonetheless not aneurysmal The included lung bases demonstrate dependent linear atelectatic changes or scarring bilaterally. The bones demonstrate degenerative spondylosis changes.. Impression: No acute abnormality Evidence of pelvic floor insufficiency Colonic diverticulosis. No evidence of diverticulitis Left adrenal adenoma Atrophic kidneys, consistent with known history of chronic kidney disease Other findings as noted, including degenerative spondylosis, linear basilar atelectasis or scarring, prior hysterectomy, prior cholecystectomy, left lobe liver cyst, small fat-containing ventral hernia The CT scanner at [facility] is accredited by the [employer] and the scans are performed using protocols designed to limit radiation exposure to as low as reasonably achievable to attain images of sufficient resolution adequate for diagnostic evaluation.
--- NOTE | 2019-06-02 15:46 | NUR ---
CASE MANAGEMENT:REVIEW 06/02/19 SI: ANEMIA. CKD. CHEST PAIN W/HISTORY OF CAD 98.0 64 18 125/59 97% ON 2L/NC CANCER MARKERS PENDING IS: IV VENOFER QHS XARELTO PO QPM SS INSULIN AC+HS AMARYL PO BID LASIX PO BID LISINOPRIL PO QD COZAAR PO QD PROTONIX PO QAM : TELEMETRY STATUS
[2019-06-02 16:00] VITALS: BP 118/53
[2019-06-02] MEDS: Xarelto 15mg tab ORAL SCH (17:07)
--- NOTE | 2019-06-02 19:15 | NUR ---
HAND-OFF: Report given to GABY Mon. Patient is in stable condition.
--- NOTE | 2019-06-02 19:16 | Cardiology Progress Note ---
Assessment/Plan Assessment/Plan 1. Anemia, likely due to CKD 2. Hx of pulmonary emboli. 3. Chronic congestive heart failure, diastolic dysfunction. 4. Chronic kidney disease stage 4. 5. CKD 6. Chest pain, hx CAD 7. 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 med reviwed now off lasix bnp normal is on lossartan off lisinopril cxr ne g hgb dropped min no sig edema Subjective Cardiovascular: Reports: palpitations Respiratory: Reports: shortness of breath Gastrointestinal/Abdominal: Reports: no symptoms Genitourinary: Reports: burning Objective Last 24 Hour Vital Signs Date Time Temp Pulse Resp B/P (MAP) Pulse Ox O2 Delivery O2 Flow Rate FiO2 06/02/19 16:00 67 06/02/19 16:00 98.1 67 18 118/53 (74) 97 06/02/19 12:00 98.0 64 18 125/59 (81) 97 06/02/19 12:00 67 06/02/19 09:00 67 74 73 06/02/19 09:00 Nasal Cannula 2.0 06/02/19 08:39 120/62 06/02/19 08:00 79 06/02/19 08:00 98.6 66 18 120/62 (81) 97 06/02/19 07:00 96 Nasal Cannula 2.0 28 06/02/19 04:00 63 06/02/19 04:00 98.1 76 18 168/69 (102) 96 06/02/19 00:00 98.2 72 18 158/56 (90) 97 06/02/19 00:00 77 06/01/19 21:00 Nasal Cannula 2.0 06/01/19 20:00 75 06/01/19 20:00 97.8 76 18 134/57 (82) 95 General Appearance: no apparent distress, alert Neck: supple Cardiovascular: normal rate Respiratory/Chest: lungs clear Abdomen: normal bowel sounds, non tender, soft Extremities: no swelling Intake and Output 06/01/19 06/02/19 18:59 06:59 Intake Total 460 ml 240 ml Balance 460 ml 240 ml Intake Oral 460 ml 240 ml # Voids 4 2 # Bowel Movements 1 Laboratory Tests Test 06/02/19 07:00 Carcinoembryonic Antigen Pending CA 19-9 Antigen Pending CA 125 Antigen Pending Joe Guillen MD 16, 2019 19:16
--- NOTE | 2019-06-02 19:36 | NUR ---
NURSE NOTES: patient received. patient in no acute distress at this time. patient complains of no pain at this time. patient awake alert and oriented x4. NC on patient and patient sating 100%. bedside commode at bedside. skin intact. IV intact patent and asymptomatic. bed in lowest position and locked. call light within reach. bed alarm on. will continue to monitor.
[2019-06-02 20:00] VITALS: BP 109/49
[2019-06-02] MEDS: Iron Sucrose 100 MG in NS 55 ML IV SCH (20:17)
[2019-06-02] MEDS: Miralax 17gm pkt ORAL SCH (20:20)
--- NOTE | 2019-06-02 20:28 | General Progress Note ---
Assessment/Plan Assessment/Plan: Assessment - Iron deficiency anemia - chronic diffuse abd pain - Azoemia - chest pain - neg stress test Recommendations - laxative - EGD/Colon Th am Subjective Allergies: Coded Allergies: No Known Allergies (Unverified , 09/08/18) Subjective Still with diffuse abd pain labs show iron deficiency CT ordered - negative negative ischemic evaluation Objective Last 24 Hour Vital Signs Date Time Temp Pulse Resp B/P (MAP) Pulse Ox O2 Delivery O2 Flow Rate FiO2 06/02/19 16:00 67 06/02/19 16:00 98.1 67 18 118/53 (74) 97 06/02/19 12:00 98.0 64 18 125/59 (81) 97 06/02/19 12:00 67 06/02/19 09:00 67 74 73 06/02/19 09:00 Nasal Cannula 2.0 06/02/19 08:39 120/62 06/02/19 08:00 79 06/02/19 08:00 98.6 66 18 120/62 (81) 97 06/02/19 07:00 96 Nasal Cannula 2.0 28 06/02/19 04:00 63 06/02/19 04:00 98.1 76 18 168/69 (102) 96 06/02/19 00:00 98.2 72 18 158/56 (90) 97 06/02/19 00:00 77 06/01/19 21:00 Nasal Cannula 2.0 Intake and Output 06/01/19 06/02/19 18:59 06:59 Intake Total 460 ml 240 ml Balance 460 ml 240 ml Intake Oral 460 ml 240 ml # Voids 4 2 # Bowel Movements 1 Laboratory Tests 06/02/19 07:00: Carcinoembryonic Antigen [Pending], CA 19-9 Antigen [Pending], CA 125 Antigen [ Pending] Height (Feet): 5 Height (Inches): 9.00 Weight (Pounds): 226 Objective WDWN NCAT supple CTA RRR abd soft ND no edema non focal Awilda Augustin MD Jun 02, 2019 20:28
[2019-06-03] VITALS: BP 120/48
[2019-06-03 04:00] VITALS: BP 135/48
[2019-06-03] MEDS: NovoLOG Insulin Flexpen SUBQ SCH ×4 (06:08→21:00)
--- NOTE | 2019-06-03 07:10 | NUR ---
NURSE NOTES: Received patient and report from GABY Mon. Patient complain of stomach discomfort. Will notify MD. No s/s of distress noted. Patient is resting in bed. Bed in low and locked position, brakes engaged for safety. Call light within reach, bedside table within reach. Will continue with the plan of care.
[2019-06-03 07:20] LABS: BASOPHILS % (AUTO) 0.9 % (0.0-2.0); EOSINOPHILS % (AUTO) 4.9 % (0.0-3.0); HEMATOCRIT 28.8 % (37.0-47.0); HEMOGLOBIN 8.6 G/DL (12.0-16.0); LYMPHOCYTES % (AUTO) 21.3 % (20.0-45.0); MEAN CORPUSCULAR VOLUME 77 FL (80-99); NEUTROPHILS % (AUTO) 68.9 % (45.0-75.0); PLATELET COUNT 235 K/UL (150-450); RED BLOOD COUNT 3.72 M/UL (4.20-5.40); RED CELL DISTRIBUTION WIDTH 18.4 % (11.6-14.8); WHITE BLOOD COUNT 10.1 K/UL (4.8-10.8)
[2019-06-03 07:49] LABS: ALANINE AMINOTRANSFERASE 12 U/L (12-78); ALBUMIN/GLOBULIN RATIO 0.7 (1.0-2.7); ALKALINE PHOSPHATASE 97 U/L (46-116); ANION GAP 6 mmol/L (5-15); ASPARTATE AMINO TRANSFERASE 17 U/L (15-37); BILIRUBIN,TOTAL 0.4 MG/DL (0.2-1.0); BLOOD UREA NITROGEN 45 mg/dL (7-18); CALCIUM 9.1 MG/DL (8.5-10.1); CARBON DIOXIDE 30 MMOL/L (21-32); CHLORIDE 106 MMOL/L (98-107); CREATININE 2.3 MG/DL (0.55-1.30); POTASSIUM 4.2 MMOL/L (3.5-5.1); SODIUM 142 MMOL/L (136-145)
[2019-06-03 08:00] VITALS: BP 112/57
[2019-06-03] MEDS: Glimepiride 4mg tab ORAL SCH ×2 (08:29→17:06)
[2019-06-03] MEDS: Losartan 50mg tab ORAL SCH (08:29)
[2019-06-03] MEDS: Ocean Nasal Spray 45ml NASAL SCH ×2 (08:29→17:05)
[2019-06-03] MEDS: Docusate 100mg cap ORAL SCH ×2 (08:29→17:04)
--- NOTE | 2019-06-03 09:09 | NUR ---
CASE MANAGEMENT:REVIEW 06/03/19 SI: ANEMIA. CKD. CHEST PAIN W/HISTORY OF CAD DIFFUSE ABDOMINAL PAIN 98.4 68 18 112/57 98% ON 2L/NC H/H-8.6/28.8 BUN+45 CR+2.3 CANCER MARKERS NEGATIVE IS: IV VENOFER QHS XARELTO PO QPM SS INSULIN AC+HS AMARYL PO BID LASIX PO BID LISINOPRIL PO QD COZAAR PO QD PROTONIX PO QAM : TELEMETRY STATUS DCP: PATIENT IS FROM HOME PLAN: EGD/COLONOSCOPY SCHEDULED FOR SATURDAY
--- NOTE | 2019-06-03 11:14 | NUR ---
INSURANCE UPDATED CLINICALS and REVIEW HAVE BEEN FAXED PLEASE FAX THE REVIEW AND CLINICAL TO: REPLACED BY [facility] F: [phone]
[2019-06-03] MEDS: Hyoscyamine 0.125mg tab ORAL PRN ×3 (11:36→21:53)
[2019-06-03 12:00] VITALS: BP 125/56
--- NOTE | 2019-06-03 12:49 | Hematology/Onc Progress Note ---
Assessment/Plan Assessment/Plan Assessment and Recs: # Anemia of iron deficiency in the setting of anticoagulant (xarelto) use, would recommend evaluation of Gi bleed, has been seen by gi --> consider to proceed with endoscopy as per Gi, cards clearance --> in this setting xarelto is likely causing any bleed to become exacerbated --> anemia panel has been reviewed, FERRITIN SEVERELY LOW --> at this time, continue on iv iron 100mg X 5 days and may need outpatient iron as well --> EPOGEN 3x a week has been started --> smear to be reviewed, no schistocytes noted --> COLO/EGD for saturday potentially --> if no bleed found by endoscopy, consider capsule eval --> r/o malignancy, tumor markers ordered, screen test --> OFF XARELTO UNTIL AFTER ENDOSCOPY # Recurrent PE, per patient 1st PE, she did not receive any anticoagulant --> at this time, continue xarelto lifelong or similar anticoagulant (once endoscopy completed) --> would not rec ivcfilter given xarelto still in system, will slowly disspate based on 1/2 life --> does not have dvt of lower ext # CHF, diastolic dysfunction --> as per cards eval # 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 Subjective Constitutional: Denies: no symptoms, chills, fever, malaise, weakness, other HEENT: Denies: no symptoms, eye pain, blurred vision, tearing, double vision, ear pain, ear discharge, nose pain, nose congestion, throat pain, throat swelling, mouth pain, mouth swelling, other Cardiovascular: Denies: no symptoms, chest pain, edema, irregular heart rate, lightheadedness, palpitations, syncope, other Respiratory: Denies: no symptoms, cough, shortness of breath, SOB with excertion, SOB at rest, sputum, wheezing, other Gastrointestinal/Abdominal: Denies: no symptoms, abdomen distended, abdominal pain, black stools, tarry stools, blood in stool, constipated, diarrhea, difficulty swallowing, nausea, poor appetite, poor fluid intake, rectal bleeding , vomiting, other Genitourinary: Denies: no symptoms, burning, discharge, frequency, flank pain, hematuria, incontinence, pain, urgency, other Neurologic/Psychiatric: Denies: no symptoms, anxiety, depressed, emotional problems, headache, numbness, paresthesia, pre-existing deficit, seizure, tingling, tremors, weakness, other Endocrine: Denies: no symptoms, excessive sweating, flushing, intolerance to cold, intolerance to heat, increased hunger, increased thirst, increased urine, unexplained weight gain, unexplained weight loss, other Allergies: Coded Allergies: No Known Allergies (Unverified , 09/08/18) Subjective 06/03: no events, is on iron, no f/c, no night sweats, potential colo/egd fri, with abd pain, ongoing Objective Objective Current Medications Medications (Trade) Dose Ordered Sig/Mary Route PRN Reason Start Time Stop Time Status Last Admin Dose Admin Barium Sulfate (Readi-Cat 2) 450 ml NOW PRN ORAL Radiology Procedure 06/02/19 09:30 06/04/19 09:17 Clonidine HCl (Catapres Tab) 0.1 mg Q6H PRN ORAL For High Blood Pressure 05/29/19 03:15 06/28/19 03:14 Dextrose (Dextrose 50%) 25 ml Q30M PRN IV Hypoglycemia 05/29/19 08:00 06/28/19 07:59 Dextrose (Dextrose 50%) 50 ml Q30M PRN IV Hypoglycemia 05/29/19 08:00 06/28/19 07:59 Docusate Sodium (Colace) 100 mg TWICE A DAY ORAL 06/01/19 09:00 07/01/19 08:59 06/03/19 08:29 Epoetin Yvon (Epoetin Yvon-EPBX(NON ESRD)) 4,000 unit SAT-SAT-SAT SUBQ 06/03/19 21:00 07/03/19 20:59 Famotidine (Pepcid) 20 mg ACBREAKFAST ORAL 05/29/19 06:30 06/28/19 06:29 06/03/19 06:06 Gabapentin (Neurontin) 300 mg DAILY ORAL 05/29/19 09:00 06/28/19 08:59 06/03/19 08:29 Glimepiride (Amaryl) 4 mg BID ORAL 05/29/19 10:15 06/28/19 10:14 06/03/19 08:29 Hyoscyamine Sulfate (Levsin) 0.125 mg Q4H PRN ORAL For Pain 06/03/19 10:30 07/03/19 10:29 06/03/19 11:36 Insulin Aspart (NovoLOG Mix 70/ 30) 62 units BIAC SUBQ 05/29/19 06:30 06/28/19 06:29 06/03/19 06:09 Insulin Aspart (NovoLOG) BEFORE MEALS AND HS SUBQ 05/29/19 11:30 06/28/19 11:29 06/03/19 11:37 Iopamidol (Isovue-300 100ml) 100 ml NOW PRN INJ Radiology Procedure 06/02/19 09:30 06/04/19 09:29 Iron Sucrose 100 mg/Sodium Chloride 60 ml @ 240 mls/hr BEDTIME IV 06/01/19 21:00 06/05/19 21:14 06/02/19 20:17 Losartan Potassium (Cozaar) 100 mg DAILY ORAL 05/29/19 09:00 06/28/19 08:59 06/03/19 08:29 Pantoprazole (Protonix) 40 mg ACBREAKFAST ORAL 05/29/19 06:30 06/28/19 06:29 06/03/19 06:06 Polyethylene Glycol (Miralax) 17 gm BEDTIME ORAL 05/31/19 21:00 06/30/19 20:59 06/01/19 20:10 Pravastatin Sodium (Pravachol) 40 mg BEDTIME ORAL 05/29/19 21:00 06/28/19 20:59 06/02/19 20:14 Sodium Chloride ([place] Nasal Amma) 2 spray BID NASAL 05/29/19 09:00 06/28/19 08:59 06/03/19 08:29 Tramadol HCl (Ultram) 50 mg TID PRN ORAL For Pain 05/29/19 03:15 06/05/19 03:14 05/31/19 00:54 Last 24 Hour Vital Signs Date Time Temp Pulse Resp B/P (MAP) Pulse Ox O2 Delivery O2 Flow Rate FiO2 06/03/19 09:00 71 74 78 06/03/19 08:56 Nasal Cannula 2.0 06/03/19 08:29 112/57 06/03/19 08:00 68 06/03/19 08:00 98.4 68 18 112/57 (75) 98 06/03/19 04:00 71 06/03/19 04:00 98.3 68 18 135/48 (77) 96 06/03/19 00:00 66 06/03/19 00:00 97.9 70 18 120/48 (72) 96 06/02/19 21:00 Nasal Cannula 2.0 06/02/19 20:00 71 06/02/19 20:00 97.5 70 18 109/49 (69) 97 06/02/19 16:00 67 06/02/19 16:00 98.1 67 18 118/53 (74) 97 06/02/19 12:00 98.0 64 18 125/59 (81) 97 06/02/19 12:00 67 06/02/19 09:00 67 74 73 06/02/19 09:00 Nasal Cannula 2.0 06/02/19 08:39 120/62 06/02/19 08:00 79 06/02/19 08:00 98.6 66 18 120/62 (81) 97 06/02/19 07:00 96 Nasal Cannula 2.0 28 06/02/19 04:00 63 06/02/19 04:00 98.1 76 18 168/69 (102) 96 06/02/19 00:00 98.2 72 18 158/56 (90) 97 06/02/19 00:00 77 06/01/19 21:00 Nasal Cannula 2.0 06/01/19 20:00 75 06/01/19 20:00 97.8 76 18 134/57 (82) 95 06/01/19 16:00 98.2 75 20 123/50 (74) 95 06/01/19 16:00 72 Intake and Output 06/02/19 06/03/19 19:00 07:00 Intake Total 1200 ml 480 ml Balance 1200 ml 480 ml Other 1200 ml 480 ml # Voids 5 # Bowel Movements 1 Labs Test 05/31/19 15:00 06/01/19 06:33 06/02/19 07:00 06/03/19 06:50 Stool Occult Blood Positive (NEGATIVE) White Blood Count 10.5 K/UL (4.8-10.8) 10.1 K/UL (4.8-10.8) Red Blood Count 3.59 M/UL (4.20-5.40) 3.72 M/UL (4.20-5.40) Hemoglobin 7.9 G/DL (12.0-16.0) 8.6 G/DL (12.0-16.0) Hematocrit 26.9 % (37.0-47.0) 28.8 % (37.0-47.0) Mean Corpuscular Volume 75 FL (80-99) 77 FL (80-99) Mean Corpuscular Hemoglobin 22.1 PG (27.0-31.0) 23.2 PG (27.0-31.0) Mean Corpuscular Hemoglobin Concent 29.6 G/DL (32.0-36.0) 29.9 G/DL (32.0-36.0) Red Cell Distribution Width 17.8 % (11.6-14.8) 18.4 % (11.6-14.8) Platelet Count 240 K/UL (150-450) 235 K/UL (150-450) Mean Platelet Volume 7.2 FL (6.5-10.1) 6.9 FL (6.5-10.1) Neutrophils (%) (Auto) % (45.0-75.0) 68.9 % (45.0-75.0) Lymphocytes (%) (Auto) % (20.0-45.0) 21.3 % (20.0-45.0) Monocytes (%) (Auto) % (1.0-10.0) 4.0 % (1.0-10.0) Eosinophils (%) (Auto) % (0.0-3.0) 4.9 % (0.0-3.0) Basophils (%) (Auto) % (0.0-2.0) 0.9 % (0.0-2.0) Differential Total Cells Counted 100 Neutrophils % (Manual) 64 % (45-75) Lymphocytes % (Manual) 19 % (20-45) Monocytes % (Manual) 7 % (1-10) Eosinophils % (Manual) 7 % (0-3) Basophils % (Manual) 3 % (0-2) Band Neutrophils 0 % (0-8) Platelet Estimate Adequate Platelet Morphology Normal Hypochromasia 3+ Anisocytosis 1+ Microcytosis 1+ Sodium Level 139 MMOL/L (136-145) 142 MMOL/L (136-145) Potassium Level 4.4 MMOL/L (3.5-5.1) 4.2 MMOL/L (3.5-5.1) Chloride Level 104 MMOL/L (98-107) 106 MMOL/L (98-107) Carbon Dioxide Level 28 MMOL/L (21-32) 30 MMOL/L (21-32) Anion Gap 7 mmol/L (5-15) 6 mmol/L (5-15) Blood Urea Nitrogen 48 mg/dL (7-18) 45 mg/dL (7-18) Creatinine 2.7 MG/DL (0.55-1.30) 2.3 MG/DL (0.55-1.30) Estimat Glomerular Filtration Rate mL/min (>60) mL/min (>60) Glucose Level 221 MG/DL (74-106) 130 MG/DL (74-106) Calcium Level 8.7 MG/DL (8.5-10.1) 9.1 MG/DL (8.5-10.1) Iron Level 23 ug/dL (50-175) Total Iron Binding Capacity 378 ug/dL (250-450) Percent Iron Saturation 6 % (15-50) Unsaturated Iron Binding 355 ug/dL (112-346) Ferritin 4 NG/ML (8-388) Total Bilirubin 0.4 MG/DL (0.2-1.0) 0.4 MG/DL (0.2-1.0) Aspartate Amino Transf (AST/SGOT) 10 U/L (15-37) 17 U/L (15-37) Alanine Aminotransferase (ALT/SGPT) 11 U/L (12-78) 12 U/L (12-78) Alkaline Phosphatase 97 U/L (46-116) 97 U/L (46-116) Total Protein 7.2 G/DL (6.4-8.2) 7.4 G/DL (6.4-8.2) Albumin 2.9 G/DL (3.4-5.0) 3.0 G/DL (3.4-5.0) Globulin 4.3 g/dL 4.4 g/dL Albumin/Globulin Ratio 0.7 (1.0-2.7) 0.7 (1.0-2.7) Vitamin B12 Level 301 PG/ML (193-986) Folate 12.7 NG/ML (8.6-58.9) Free Thyroxine 0.85 NG/DL (0.76-1.46) Triiodothyonine (T3) 78 ng/dL (71-180) Carcinoembryonic Antigen 1.3 ng/mL (0.0-4.7) CA 19-9 Antigen 8 U/mL (0-35) CA 125 Antigen 5.3 U/mL (0.0-38.1) Height (Feet): 5 Height (Inches): 9.00 Weight (Pounds): 225 Objective PE Vital Signs Gen: no apparent distress, alert, GCS 15, nt Neck: full range of motion, supple/symm/no masses Respiratory: chest non-tender, lungs clear, normal breath sounds Cv: regular rate, rhythm, no edema GI: normal bowel sounds, non tender, soft, bt, nd Musculoskeletal: back normal, normal range of motion, non-tender Jatinder Melchor MD Jun 03, 2019 12:49
[2019-06-03] MEDS ORDERED: Tubing IV Blood Pump IV ONE (15:30)
[2019-06-03 16:00] VITALS: BP 110/49
[2019-06-03] MEDS ORDERED: Xarelto 15mg tab ORAL SCH (19:00)
--- NOTE | 2019-06-03 19:47 | NUR ---
HAND-OFF: Report given to GABY Miller. Patient is in stable condition.
--- NOTE | 2019-06-03 19:48 | NUR ---
NURSE NOTES: Received pt from GABY Cuevas. Pt is awake and resting in bed. Iv site is intact. Bed locked in lowest position, call light within reach. Will continue with plan of care.
[2019-06-03 20:00] VITALS: BP 130/50
--- NOTE | 2019-06-03 20:09 | Cardiology Progress Note ---
Assessment/Plan Assessment/Plan 1. Anemia, likely due to CKD 2. Hx of pulmonary emboli. 3. Chronic congestive heart failure, diastolic dysfunction. 4. Chronic kidney disease stage 4. 5. CKD 6. Chest pain, hx CAD 7. 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 now off lasix bnp normal is on lossartan but endorses prthostatic sx will check ortho vitals and decrease losartan cxr neg hgb dropped min no sig edema Subjective Cardiovascular: Reports: lightheadedness; Denies: chest pain Respiratory: Denies: shortness of breath Gastrointestinal/Abdominal: Denies: abdominal pain Genitourinary: Denies: burning Objective Last 24 Hour Vital Signs Date Time Temp Pulse Resp B/P (MAP) Pulse Ox O2 Delivery O2 Flow Rate FiO2 06/03/19 16:00 98.0 65 18 110/49 (69) 97 06/03/19 16:00 64 06/03/19 12:00 66 06/03/19 12:00 98.7 70 18 125/56 (79) 99 06/03/19 09:00 71 74 78 06/03/19 08:56 Nasal Cannula 2.0 06/03/19 08:29 112/57 06/03/19 08:00 68 06/03/19 08:00 98.4 68 18 112/57 (75) 98 06/03/19 04:00 71 06/03/19 04:00 98.3 68 18 135/48 (77) 96 06/03/19 00:00 66 06/03/19 00:00 97.9 70 18 120/48 (72) 96 06/02/19 21:00 Nasal Cannula 2.0 General Appearance: alert, obese Cardiovascular: normal rate Respiratory/Chest: lungs clear Abdomen: normal bowel sounds, non tender, soft Extremities: no swelling Intake and Output 06/02/19 06/03/19 19:00 07:00 Intake Total 1200 ml 480 ml Balance 1200 ml 480 ml Other 1200 ml 480 ml # Voids 5 # Bowel Movements 1 Laboratory Tests Test 06/03/19 06:50 White Blood Count 10.1 K/UL (4.8-10.8) Red Blood Count 3.72 M/UL (4.20-5.40) L Hemoglobin 8.6 G/DL (12.0-16.0) L Hematocrit 28.8 % (37.0-47.0) L Mean Corpuscular Volume 77 FL (80-99) L Mean Corpuscular Hemoglobin 23.2 PG (27.0-31.0) L Mean Corpuscular Hemoglobin Concent 29.9 G/DL (32.0-36.0) L Red Cell Distribution Width 18.4 % (11.6-14.8) H Platelet Count 235 K/UL (150-450) Mean Platelet Volume 6.9 FL (6.5-10.1) Neutrophils (%) (Auto) 68.9 % (45.0-75.0) Lymphocytes (%) (Auto) 21.3 % (20.0-45.0) Monocytes (%) (Auto) 4.0 % (1.0-10.0) Eosinophils (%) (Auto) 4.9 % (0.0-3.0) H Basophils (%) (Auto) 0.9 % (0.0-2.0) Sodium Level 142 MMOL/L (136-145) Potassium Level 4.2 MMOL/L (3.5-5.1) Chloride Level 106 MMOL/L (98-107) Carbon Dioxide Level 30 MMOL/L (21-32) Anion Gap 6 mmol/L (5-15) Blood Urea Nitrogen 45 mg/dL (7-18) H Creatinine 2.3 MG/DL (0.55-1.30) H Estimat Glomerular Filtration Rate mL/min (>60) Glucose Level 130 MG/DL (74-106) H Calcium Level 9.1 MG/DL (8.5-10.1) Total Bilirubin 0.4 MG/DL (0.2-1.0) Aspartate Amino Transf (AST/SGOT) 17 U/L (15-37) Alanine Aminotransferase (ALT/SGPT) 12 U/L (12-78) Alkaline Phosphatase 97 U/L (46-116) Total Protein 7.4 G/DL (6.4-8.2) Albumin 3.0 G/DL (3.4-5.0) L Globulin 4.4 g/dL Albumin/Globulin Ratio 0.7 (1.0-2.7) L Joe Guillen MD Jun 03, 2019 20:09
[2019-06-03] MEDS: Iron Sucrose 100 MG in NS 55 ML IV SCH (20:49)
[2019-06-03] MEDS: Miralax 17gm pkt ORAL SCH (21:00)
[2019-06-03] MEDS ORDERED: Epoetin Alfa-EPBX (NON ESRD)4000 units/ml vial SUBQ SCH (21:00)
[2019-06-03] MEDS ORDERED: Sorbitol Solution UD 30ml ORAL ONE (22:15)
--- NOTE | 2019-06-03 22:35 | General Progress Note ---
Assessment/Plan Assessment/Plan: Assessment - Iron deficiency anemia - OB (+) stools - chronic diffuse abd pain - Azotemia - chest pain - neg stress test Recommendations - laxative - EGD/Colon Saturday am - hold anticoagulation Subjective Allergies: Coded Allergies: No Known Allergies (Unverified , 09/08/18) Subjective Todays note written for GI and for medicine coverage for Dr. Balbuena Still with diffuse abd pain labs show iron deficiency CT ordered - negative negative ischemic evaluation d/w heme re anticoagulation - will hold until Saturday for endoscopy Objective Last 24 Hour Vital Signs Date Time Temp Pulse Resp B/P (MAP) Pulse Ox O2 Delivery O2 Flow Rate FiO2 06/03/19 16:00 98.0 65 18 110/49 (69) 97 06/03/19 16:00 64 06/03/19 12:00 66 06/03/19 12:00 98.7 70 18 125/56 (79) 99 06/03/19 09:00 71 74 78 06/03/19 08:56 Nasal Cannula 2.0 06/03/19 08:29 112/57 06/03/19 08:00 68 06/03/19 08:00 98.4 68 18 112/57 (75) 98 06/03/19 04:00 71 06/03/19 04:00 98.3 68 18 135/48 (77) 96 06/03/19 00:00 66 06/03/19 00:00 97.9 70 18 120/48 (72) 96 Intake and Output 06/02/19 06/03/19 18:59 06:59 Intake Total 1200 ml 480 ml Balance 1200 ml 480 ml Other 1200 ml 480 ml # Voids 5 # Bowel Movements 1 Laboratory Tests 06/03/19 06:50: White Blood Count 10.1, Red Blood Count 3.72L, Hemoglobin 8.6L, Hematocrit 28.8L , Mean Corpuscular Volume 77L, Mean Corpuscular Hemoglobin 23.2L, Mean Corpuscular Hemoglobin Concent 29.9L, Red Cell Distribution Width 18.4H, Platelet Count 235, Mean Platelet Volume 6.9, Neutrophils (%) (Auto) 68.9, Lymphocytes (%) (Auto) 21.3, Monocytes (%) (Auto) 4.0, Eosinophils (%) (Auto) 4.9H, Basophils (%) (Auto) 0.9, Sodium Level 142, Potassium Level 4.2, Chloride Level 106, Carbon Dioxide Level 30, Anion Gap 6, Blood Urea Nitrogen 45H, Creatinine 2.3H, Estimat Glomerular Filtration Rate , Glucose Level 130H, Calcium Level 9.1, Total Bilirubin 0.4, Aspartate Amino Transf (AST/SGOT) 17, Alanine Aminotransferase (ALT/SGPT) 12, Alkaline Phosphatase 97, Total Protein 7.4, Albumin 3.0L, Globulin 4.4, Albumin/Globulin Ratio 0.7L Height (Feet): 5 Height (Inches): 9.00 Weight (Pounds): 225 Objective WDWN NCAT supple CTA RRR abd soft ND no edema non focal Awilda Augustin MD Jun 03, 2019 22:35
[2019-06-04] VITALS: BP 119/48
[2019-06-04] MEDS: traMADol 50mg tab ORAL PRN (02:01)
[2019-06-04] MEDS: Hyoscyamine 0.125mg tab ORAL PRN ×3 (03:48→18:12)
[2019-06-04 04:00] VITALS: BP 118/49
[2019-06-04] MEDS: NovoLOG Insulin Flexpen SUBQ SCH ×4 (06:34→21:00)
--- NOTE | 2019-06-04 07:00 | NUR ---
NURSE NOTES: Contacted Pharmacy in order to get pt novolog 70/30 pen refilled. Pharmacy will prepare med and med will be picked up accordingly.
--- NOTE | 2019-06-04 07:15 | NUR ---
NURSE NOTES: Report received from GABY Miller. Patient awake. AOx4. In RA. Denies pain or SOB. Helped to the bedside commode. Bed on lowest position, side rails upx2, brakes engaged. Call light within easy reach.
[2019-06-04 07:16] LABS: BASOPHILS % (AUTO) 0.8 % (0.0-2.0); EOSINOPHILS % (AUTO) 5.8 % (0.0-3.0); HEMATOCRIT 28.1 % (37.0-47.0); HEMOGLOBIN 8.4 G/DL (12.0-16.0); LYMPHOCYTES % (AUTO) 21.2 % (20.0-45.0); MEAN CORPUSCULAR VOLUME 77 FL (80-99); MONOCYTES % (AUTO) 6.4 % (1.0-10.0); NEUTROPHILS % (AUTO) 65.9 % (45.0-75.0); PLATELET COUNT 223 K/UL (150-450); RED BLOOD COUNT 3.63 M/UL (4.20-5.40); RED CELL DISTRIBUTION WIDTH 18.6 % (11.6-14.8); WHITE BLOOD COUNT 9.6 K/UL (4.8-10.8)
--- NOTE | 2019-06-04 07:20 | NUR ---
HAND-OFF: Report given to GABY Hernandez. Endorsed plan of care.
[2019-06-04 08:00] VITALS: BP 118/48
[2019-06-04] MEDS ORDERED: Nulytely 4L ORAL ONE (08:00)
[2019-06-04] MEDS: Glimepiride 4mg tab ORAL SCH ×2 (08:34→17:59)
[2019-06-04] MEDS: Ocean Nasal Spray 45ml NASAL SCH ×2 (08:34→17:59)
[2019-06-04] MEDS: Docusate 100mg cap ORAL SCH ×2 (08:34→17:55)
[2019-06-04] MEDS: Losartan 50mg tab ORAL SCH (08:35)
--- NOTE | 2019-06-04 09:25 | Hematology/Onc Progress Note ---
Assessment/Plan Assessment/Plan Assessment and Recs: # Anemia of iron deficiency in the setting of anticoagulant (xarelto) use, would recommend evaluation of Gi bleed, has been seen by gi --> consider to proceed with endoscopy as per Gi, cards clearance --> in this setting xarelto is likely causing any bleed to become exacerbated --> anemia panel has been reviewed, ferritin SEVERELY LOW --> at this time, continue on iv iron 100mg X 5 days and may need outpatient iron as well --> EPOGEN 3x a week has been started --> smear to be reviewed, no schistocytes noted --> COLO/EGD for saturday potentially --> if no bleed found by endoscopy, consider capsule eval --> r/o malignancy, tumor markers ordered, screen test --> off XARELTO UNTIL AFTER ENDOSCOPY # Recurrent PE, per patient 1st PE, she did not receive any anticoagulant --> at this time, continue xarelto lifelong or similar anticoagulant (once endoscopy completed) --> would not rec ivcfilter given xarelto still in system, will slowly disspate based on 1/2 life --> does not have dvt of lower ext # CHF, diastolic dysfunction --> as per cards eval # 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 Subjective Constitutional: Denies: no symptoms, chills, fever, malaise, weakness, other Respiratory: Denies: no symptoms, cough, shortness of breath, SOB with excertion, SOB at rest, sputum, wheezing, other Gastrointestinal/Abdominal: Denies: no symptoms, abdomen distended, abdominal pain, black stools, tarry stools, blood in stool, constipated, diarrhea, difficulty swallowing, nausea, poor appetite, poor fluid intake, rectal bleeding , vomiting, other Genitourinary: Denies: no symptoms, burning, discharge, frequency, flank pain, hematuria, incontinence, pain, urgency, other Neurologic/Psychiatric: Denies: no symptoms, anxiety, depressed, emotional problems, headache, numbness, paresthesia, pre-existing deficit, seizure, tingling, tremors, weakness, other Endocrine: Denies: no symptoms, excessive sweating, flushing, intolerance to cold, intolerance to heat, increased hunger, increased thirst, increased urine, unexplained weight gain, unexplained weight loss, other Hematologic/Lymphatic: Denies: no symptoms, anemia, easy bleeding, easy bruising, adenopathy, other Allergies: Coded Allergies: No Known Allergies (Unverified , 09/08/18) Subjective 06/03: no events, is on iron, no f/c, no night sweats, potential colo/egd sat, with abd pain, ongoing 06/04: no events, for colo/egd for potential for saturday Objective Objective Current Medications Medications (Trade) Dose Ordered Sig/Mary Route PRN Reason Start Time Stop Time Status Last Admin Dose Admin Clonidine HCl (Catapres Tab) 0.1 mg Q6H PRN ORAL For High Blood Pressure 05/29/19 03:15 06/28/19 03:14 Dextrose (Dextrose 50%) 25 ml Q30M PRN IV Hypoglycemia 05/29/19 08:00 06/28/19 07:59 Dextrose (Dextrose 50%) 50 ml Q30M PRN IV Hypoglycemia 05/29/19 08:00 06/28/19 07:59 Docusate Sodium (Colace) 100 mg TWICE A DAY ORAL 06/01/19 09:00 07/01/19 08:59 06/04/19 08:34 Epoetin Yvon (Epoetin Yvon-EPBX(NON ESRD)) 4,000 unit SAT-SAT-SAT SUBQ 06/03/19 21:00 07/03/19 20:59 06/03/19 20:56 Famotidine (Pepcid) 20 mg ACBREAKFAST ORAL 05/29/19 06:30 06/28/19 06:29 06/04/19 06:33 Gabapentin (Neurontin) 300 mg DAILY ORAL 05/29/19 09:00 06/28/19 08:59 06/04/19 08:36 Glimepiride (Amaryl) 4 mg BID ORAL 05/29/19 10:15 06/28/19 10:14 06/04/19 08:34 Hyoscyamine Sulfate (Levsin) 0.125 mg Q4H PRN ORAL For Pain 06/03/19 10:30 07/03/19 10:29 06/04/19 08:39 Insulin Aspart (NovoLOG Mix 70/ 30) 62 units BIAC SUBQ 05/29/19 06:30 06/28/19 06:29 06/04/19 07:40 Insulin Aspart (NovoLOG) BEFORE MEALS AND HS SUBQ 05/29/19 11:30 06/28/19 11:29 06/04/19 06:34 Iopamidol (Isovue-300 100ml) 100 ml NOW PRN INJ Radiology Procedure 06/02/19 09:30 06/04/19 09:29 Iron Sucrose 100 mg/Sodium Chloride 60 ml @ 240 mls/hr BEDTIME IV 06/01/19 21:00 06/05/19 21:14 06/03/19 20:49 Losartan Potassium (Cozaar) 50 mg DAILY ORAL 06/04/19 09:00 07/04/19 08:59 06/04/19 08:35 Pantoprazole (Protonix) 40 mg ACBREAKFAST ORAL 05/29/19 06:30 06/28/19 06:29 06/04/19 06:33 Polyethylene Glycol (Miralax) 17 gm BEDTIME ORAL 05/31/19 21:00 06/30/19 20:59 06/01/19 20:10 Pravastatin Sodium (Pravachol) 40 mg BEDTIME ORAL 05/29/19 21:00 06/28/19 20:59 06/03/19 20:58 Sodium Chloride (Wilkinson Nasal [place]) 2 spray BID NASAL 05/29/19 09:00 06/28/19 08:59 06/04/19 08:34 Tramadol HCl (Ultram) 50 mg TID PRN ORAL For Pain 05/29/19 03:15 06/05/19 03:14 06/04/19 02:01 Last 24 Hour Vital Signs Date Time Temp Pulse Resp B/P (MAP) Pulse Ox O2 Delivery O2 Flow Rate FiO2 06/04/19 08:35 118/48 06/04/19 08:00 98.5 67 18 118/48 (71) 95 06/04/19 04:00 97.1 72 20 118/49 (72) 95 06/04/19 04:00 72 06/04/19 00:00 98.2 67 24 119/48 (71) 95 06/04/19 00:00 67 06/03/19 21:52 95 Nasal Cannula 2.0 28 06/03/19 21:00 Nasal Cannula 2.0 06/03/19 20:00 59 06/03/19 20:00 98.0 59 22 130/50 (76) 99 06/03/19 16:00 98.0 65 18 110/49 (69) 97 06/03/19 16:00 64 06/03/19 12:00 66 06/03/19 12:00 98.7 70 18 125/56 (79) 99 06/03/19 09:00 71 74 78 06/03/19 08:56 Nasal Cannula 2.0 06/03/19 08:29 112/57 06/03/19 08:00 68 06/03/19 08:00 98.4 68 18 112/57 (75) 98 06/03/19 04:00 71 06/03/19 04:00 98.3 68 18 135/48 (77) 96 06/03/19 00:00 66 06/03/19 00:00 97.9 70 18 120/48 (72) 96 06/02/19 21:00 Nasal Cannula 2.0 06/02/19 20:00 71 06/02/19 20:00 97.5 70 18 109/49 (69) 97 06/02/19 16:00 67 06/02/19 16:00 98.1 67 18 118/53 (74) 97 06/02/19 12:00 98.0 64 18 125/59 (81) 97 06/02/19 12:00 67 Intake and Output 06/03/19 06/04/19 19:00 07:00 Intake Total 360 ml 120 ml Output Total 450 ml Balance -90 ml 120 ml Intake Oral 360 ml 120 ml Output Urine Total 450 ml # Voids 1 3 # Bowel Movements 2 Labs Test 06/02/19 07:00 06/03/19 06:50 06/04/19 06:28 Carcinoembryonic Antigen 1.3 ng/mL (0.0-4.7) CA 19-9 Antigen 8 U/mL (0-35) CA 125 Antigen 5.3 U/mL (0.0-38.1) White Blood Count 10.1 K/UL (4.8-10.8) 9.6 K/UL (4.8-10.8) Red Blood Count 3.72 M/UL (4.20-5.40) 3.63 M/UL (4.20-5.40) Hemoglobin 8.6 G/DL (12.0-16.0) 8.4 G/DL (12.0-16.0) Hematocrit 28.8 % (37.0-47.0) 28.1 % (37.0-47.0) Mean Corpuscular Volume 77 FL (80-99) 77 FL (80-99) Mean Corpuscular Hemoglobin 23.2 PG (27.0-31.0) 23.2 PG (27.0-31.0) Mean Corpuscular Hemoglobin Concent 29.9 G/DL (32.0-36.0) 29.9 G/DL (32.0-36.0) Red Cell Distribution Width 18.4 % (11.6-14.8) 18.6 % (11.6-14.8) Platelet Count 235 K/UL (150-450) 223 K/UL (150-450) Mean Platelet Volume 6.9 FL (6.5-10.1) 7.7 FL (6.5-10.1) Neutrophils (%) (Auto) 68.9 % (45.0-75.0) 65.9 % (45.0-75.0) Lymphocytes (%) (Auto) 21.3 % (20.0-45.0) 21.2 % (20.0-45.0) Monocytes (%) (Auto) 4.0 % (1.0-10.0) 6.4 % (1.0-10.0) Eosinophils (%) (Auto) 4.9 % (0.0-3.0) 5.8 % (0.0-3.0) Basophils (%) (Auto) 0.9 % (0.0-2.0) 0.8 % (0.0-2.0) Sodium Level 142 MMOL/L (136-145) Potassium Level 4.2 MMOL/L (3.5-5.1) Chloride Level 106 MMOL/L (98-107) Carbon Dioxide Level 30 MMOL/L (21-32) Anion Gap 6 mmol/L (5-15) Blood Urea Nitrogen 45 mg/dL (7-18) Creatinine 2.3 MG/DL (0.55-1.30) Estimat Glomerular Filtration Rate mL/min (>60) Glucose Level 130 MG/DL (74-106) Calcium Level 9.1 MG/DL (8.5-10.1) Total Bilirubin 0.4 MG/DL (0.2-1.0) Aspartate Amino Transf (AST/SGOT) 17 U/L (15-37) Alanine Aminotransferase (ALT/SGPT) 12 U/L (12-78) Alkaline Phosphatase 97 U/L (46-116) Total Protein 7.4 G/DL (6.4-8.2) Albumin 3.0 G/DL (3.4-5.0) Globulin 4.4 g/dL Albumin/Globulin Ratio 0.7 (1.0-2.7) Height (Feet): 5 Height (Inches): 9.00 Weight (Pounds): 225 Objective PE Vital Signs Gen: no apparent distress, alert, GCS 15, nt Neck: full range of motion, supple/symm/no masses Respiratory: chest non-tender, lungs clear, normal breath sounds Cv: regular rate, rhythm, no edema GI: normal bowel sounds, non tender, soft, bt, nd Musculoskeletal: back normal, normal range of motion, non-tender Jatinder Melchor MD Jun 04, 2019 09:25
[2019-06-04 12:00] VITALS: BP 123/60
--- NOTE | 2019-06-04 14:37 | NUR ---
CASE MANAGEMENT:REVIEW 06/04/19 SI: ANEMIA. CKD. CHEST PAIN W/HISTORY OF CAD STILL WITH DIFFUSE ABDOMINAL PAIN 97.7 56 18 123/60 100% ON RA H/H-8.4/28.1 BUN+45 CR+2.3 IS: IV VENOFER QHS SS INSULIN AC+HS AMARYL PO BID LASIX PO BID LISINOPRIL PO QD COZAAR PO QD PROTONIX PO QAM : TELEMETRY STATUS DCP: PATIENT IS FROM HOME PLAN: HOLD ANTI-COAGULATION.....EGD/COLONOSCOPY SCHEDULED FOR SATURDAY
[2019-06-04 16:00] VITALS: BP 137/56
--- NOTE | 2019-06-04 16:10 | NUR ---
*-* INSURANCE *-* UPDATED CLINICALS AND REVIEWS HAVE BEEN FAXED TO: [employer] F: [phone]
--- NOTE | 2019-06-04 16:36 | General Progress Note ---
Assessment/Plan Assessment/Plan: 1. Anemia, likely due to CKD and GI bleed 2. Hx of pulmonary emboli. 3. Chronic congestive heart failure, diastolic dysfunction. 4. Chronic kidney disease stage 4. 5. GI bleeding, stool + OB, low ferritin 6. Chest pain, hx CAD; neg stress test disc w GI - CT neg panendoscopy tomorrow stool OB +; rx ferritin off Xarelto until endoscopy; no DVT prob dc tomorrow Subjective Gastrointestinal/Abdominal: Reports: abdominal pain Allergies: Coded Allergies: No Known Allergies (Unverified , 09/08/18) Objective Last 24 Hour Vital Signs Date Time Temp Pulse Resp B/P (MAP) Pulse Ox O2 Delivery O2 Flow Rate FiO2 06/04/19 12:00 56 06/04/19 12:00 97.7 62 18 123/60 (81) 100 06/04/19 09:00 67 64 70 06/04/19 09:00 Room Air 06/04/19 08:35 118/48 06/04/19 08:00 98.5 67 18 118/48 (71) 95 06/04/19 08:00 64 06/04/19 04:00 97.1 72 20 118/49 (72) 95 06/04/19 04:00 72 06/04/19 00:00 98.2 67 24 119/48 (71) 95 06/04/19 00:00 67 06/03/19 21:52 95 Nasal Cannula 2.0 28 06/03/19 21:00 Nasal Cannula 2.0 06/03/19 20:00 59 06/03/19 20:00 98.0 59 22 130/50 (76) 99 Intake and Output 06/03/19 06/04/19 19:00 07:00 Intake Total 360 ml 120 ml Output Total 450 ml Balance -90 ml 120 ml Intake Oral 360 ml 120 ml Output Urine Total 450 ml # Voids 1 3 # Bowel Movements 2 Laboratory Tests 06/04/19 06:28: White Blood Count 9.6, Red Blood Count 3.63L, Hemoglobin 8.4L, Hematocrit 28.1L , Mean Corpuscular Volume 77L, Mean Corpuscular Hemoglobin 23.2L, Mean Corpuscular Hemoglobin Concent 29.9L, Red Cell Distribution Width 18.6H, Platelet Count 223, Mean Platelet Volume 7.7, Neutrophils (%) (Auto) 65.9, Lymphocytes (%) (Auto) 21.2, Monocytes (%) (Auto) 6.4, Eosinophils (%) (Auto) 5.8H, Basophils (%) (Auto) 0.8 Height (Feet): 5 Height (Inches): 9.00 Weight (Pounds): 225 General Appearance: no apparent distress, obese Rolando Balbuena MD Jun 04, 2019 16:36
--- NOTE | 2019-06-04 17:59 | NUR ---
NURSE NOTES: Communicated with Dr. Claros's BS level and current diet order. Insulin 70/30 20units only to be given at this time.
--- NOTE | 2019-06-04 19:30 | NUR ---
NURSE NOTES: Received pt and report from GABY Hernandez. Observed pt resting in bed with both eyes open and watching television. Pt is A/Ox4. alarm security or surveillance monitor is in placed, IV site intact, asymptomatic and patent. Bed is in the lowest position and locked. Call light within reach. No signs/symptoms of acute distress noted at this time. Pt will be NPO at midnight for Endoscopy and colonoscopy tomorrow. Will continue plan of care.
--- NOTE | 2019-06-04 19:50 | NUR ---
HAND-OFF: Report given to GABY Capps. Patient in stable condition.
[2019-06-04 20:00] VITALS: BP 115/48
[2019-06-04] MEDS: Miralax 17gm pkt ORAL SCH (21:00)
[2019-06-04] MEDS: Iron Sucrose 100 MG in NS 55 ML IV SCH (21:16)
--- NOTE | 2019-06-04 21:50 | NUR ---
NURSE NOTES: Did not administer insulin. Pt's BS was 72. Pt said she felt dizzy and shaky. Gave pt orange juice and sorbet.
--- NOTE | 2019-06-04 21:51 | General Progress Note ---
Assessment/Plan Assessment/Plan: Assessment - Iron deficiency anemia - OB (+) stools - chronic diffuse abd pain - Azotemia - chest pain - neg stress test Recommendations - laxative - EGD/Colon Saturday am - hold anticoagulation Subjective Allergies: Coded Allergies: No Known Allergies (Unverified , 09/08/18) Subjective Still with abd pain (+) BM with prep for EGD/Colon in am Objective Last 24 Hour Vital Signs Date Time Temp Pulse Resp B/P (MAP) Pulse Ox O2 Delivery O2 Flow Rate FiO2 06/04/19 16:00 66 06/04/19 16:00 97.6 62 18 137/56 (83) 99 06/04/19 12:00 56 06/04/19 12:00 97.7 62 18 123/60 (81) 100 06/04/19 09:00 67 64 70 06/04/19 09:00 Room Air 06/04/19 08:35 118/48 06/04/19 08:00 98.5 67 18 118/48 (71) 95 06/04/19 08:00 64 06/04/19 04:00 97.1 72 20 118/49 (72) 95 06/04/19 04:00 72 06/04/19 00:00 98.2 67 24 119/48 (71) 95 06/04/19 00:00 67 06/03/19 21:52 95 Nasal Cannula 2.0 28 Intake and Output 06/03/19 06/04/19 19:00 07:00 Intake Total 360 ml 120 ml Output Total 450 ml Balance -90 ml 120 ml Intake Oral 360 ml 120 ml Output Urine Total 450 ml # Voids 1 3 # Bowel Movements 2 Laboratory Tests 06/04/19 06:28: White Blood Count 9.6, Red Blood Count 3.63L, Hemoglobin 8.4L, Hematocrit 28.1L , Mean Corpuscular Volume 77L, Mean Corpuscular Hemoglobin 23.2L, Mean Corpuscular Hemoglobin Concent 29.9L, Red Cell Distribution Width 18.6H, Platelet Count 223, Mean Platelet Volume 7.7, Neutrophils (%) (Auto) 65.9, Lymphocytes (%) (Auto) 21.2, Monocytes (%) (Auto) 6.4, Eosinophils (%) (Auto) 5.8H, Basophils (%) (Auto) 0.8 Height (Feet): 5 Height (Inches): 9.00 Weight (Pounds): 225 Objective WDWN NCAT supple CTA RRR abd soft ND no edema non focal Awilda Augustin MD Jun 04, 2019 21:51
[2019-06-05] VITALS (8 sets, daily range): BP systolic 111–142; BP diastolic 48–68
[2019-06-05] MEDS: NovoLOG Insulin Flexpen SUBQ SCH ×2 (06:19→12:21)
[2019-06-05 06:40] LABS: BASOPHILS % (AUTO) 0.9 % (0.0-2.0); EOSINOPHILS % (AUTO) 7.2 % (0.0-3.0); HEMOGLOBIN 8.2 G/DL (12.0-16.0); LYMPHOCYTES % (AUTO) 21.8 % (20.0-45.0); MEAN CORPUSCULAR VOLUME 78 FL (80-99); MONOCYTES % (AUTO) 6.3 % (1.0-10.0); NEUTROPHILS % (AUTO) 63.8 % (45.0-75.0); PLATELET COUNT 209 K/UL (150-450); RED CELL DISTRIBUTION WIDTH 18.7 % (11.6-14.8); WHITE BLOOD COUNT 9.4 K/UL (4.8-10.8)
[2019-06-05 06:48] LABS: ANION GAP 6 mmol/L (5-15); BLOOD UREA NITROGEN 25 mg/dL (7-18); CALCIUM 9.3 MG/DL (8.5-10.1); CARBON DIOXIDE 30 MMOL/L (21-32); CHLORIDE 109 MMOL/L (98-107); CREATININE 1.8 MG/DL (0.55-1.30); POTASSIUM 4.6 MMOL/L (3.5-5.1); SODIUM 145 MMOL/L (136-145)
--- NOTE | 2019-06-05 06:54 | NUR ---
NURSE NOTES: Pt left tele unit via gurney for scheduled endoscopy and colonoscopy procedure.
[2019-06-05] MEDS ORDERED: Lidocaine 1% MPF 10mg/ml 5ml ONE (07:00)
[2019-06-05] MEDS ORDERED: Propofol 200mg/20ml IV ONE (07:00)
[2019-06-05] MEDS ORDERED: NS 500ML IVPB ONE (07:05)
--- NOTE | 2019-06-05 07:05 | General Progress Note ---
Assessment/Plan Assessment/Plan: Assessment - Iron deficiency anemia - OB (+) stools - Diffuse abd pain - Azotemia - chest pain - neg stress test Recommendations - EGD/Colon today - resume anticoagulation later today Subjective Allergies: Coded Allergies: No Known Allergies (Unverified , 09/08/18) Subjective Still with abd pain (+) BM with prep for EGD/Colon today Objective Last 24 Hour Vital Signs Date Time Temp Pulse Resp B/P (MAP) Pulse Ox O2 Delivery O2 Flow Rate FiO2 06/05/19 04:00 98.8 69 17 142/68 (92) 96 06/05/19 04:00 67 06/05/19 00:00 98.2 61 18 142/56 (84) 98 06/05/19 00:00 62 06/04/19 21:00 Room Air 06/04/19 20:00 62 06/04/19 20:00 97.9 60 18 115/48 (70) 97 06/04/19 19:50 96 Nasal Cannula 2.0 28 06/04/19 16:00 66 06/04/19 16:00 97.6 62 18 137/56 (83) 99 06/04/19 12:00 56 06/04/19 12:00 97.7 62 18 123/60 (81) 100 06/04/19 09:00 67 64 70 06/04/19 09:00 Room Air 06/04/19 08:35 118/48 06/04/19 08:00 98.5 67 18 118/48 (71) 95 06/04/19 08:00 64 Intake and Output 06/04/19 06/05/19 19:00 07:00 Intake Total 280 ml Output Total 5 ml Balance 280 ml -5 ml Intake Oral 280 ml Output Urine Total 5 ml # Voids 3 Laboratory Tests 06/05/19 05:40: White Blood Count 9.4, Red Blood Count 3.60L, Hemoglobin 8.2L, Hematocrit 28.0L , Mean Corpuscular Volume 78L, Mean Corpuscular Hemoglobin 22.8L, Mean Corpuscular Hemoglobin Concent 29.3L, Red Cell Distribution Width 18.7H, Platelet Count 209, Mean Platelet Volume 8.1, Neutrophils (%) (Auto) 63.8, Lymphocytes (%) (Auto) 21.8, Monocytes (%) (Auto) 6.3, Eosinophils (%) (Auto) 7.2H, Basophils (%) (Auto) 0.9, Sodium Level 145, Potassium Level 4.6, Chloride Level 109H, Carbon Dioxide Level 30, Anion Gap 6, Blood Urea Nitrogen 25H, Creatinine 1.8H, Estimat Glomerular Filtration Rate , Glucose Level 85, Calcium Level 9.3 Height (Feet): 5 Height (Inches): 5.00 Weight (Pounds): 225 Objective WDWN NCAT supple CTA RRR abd soft ND no edema non focal Awilda Augustin MD Jun 05, 2019 07:05
--- NOTE | 2019-06-05 07:05 | Pre-Procedure Note/Attestation ---
Pre-Procedure Note/Attestation Complete Prior to Procedure Planned Procedure: not applicable Procedure Narrative: esophagogastroduodenoscopycolon Indications for Procedure Pre-Operative Diagnosis: anemia Attestation I attest that I discussed the nature of the procedure; its benefits; risks and complications; and alternatives (and the risks and benefits of such alternatives ), prior to the procedure, with the patient (or the patient's legal litigation claim representative). I attest that, if there was a reasonable possibility of needing a blood transfusion, the patient (or the patient's legal litigation claim representative) was given the [facility] standardized written summary, pursuant to the Nicholas Gómez Blood Safety Act ([place] Health and Safety Code # 1645, as amended). I attest that I re-evaluated the patient just prior to the surgery and that there has been no change in the patient's H&P, except as documented below: Awilda Augustin MD Jun 05, 2019 07:05
--- NOTE | 2019-06-05 07:29 | Anethesia Preoperative Eval ---
Anesthesia Pre-op PMH/ROS General Date of Evaluation: Jun 05, 2019 Time of Evaluation: 07:00 Anesthesiologist: tremayne ASA Score: ASA 3 Mallampati Score Class I : Soft palate, uvula, fauces, pillars visible Class II: Soft palate, uvula, fauces visible Class III: Soft palate, base of uvula visible Class IV: Only hard plate visible Mallampati Classification: Class III Surgeon: marissa Diagnosis: anemia Surgical Procedure: egd; colonoscopy Anesthesia History: none Family History: no anesthesia problems Allergies: Coded Allergies: No Known Allergies (Unverified , 09/08/18) Medications: see eMAR Patient NPO?: Yes NPO Date: Jun 05, 2019 NPO Time: 00:01 Past Medical History Cardiovascular: Reports: HTN, CAD Pulmonary: Denies: asthma, COPD, NICOLE, other Gastrointestinal/Genitourinary: Reports: GERD, CRI; Denies: ESRD, other Neurologic/Psychiatric: Denies: dementia, CVA, depression/anxiety, TIA, other Endocrine: Reports: DM; Denies: hypothyroidism, steroids, other HEENT: Reports: cataract (L), cataract (R); Denies: glaucoma, AKHIOK (L), AKHIOK (R), other Hematology/Immune: Reports: anemia, DVT Musculoskeletal/Integumentary: Denies: OA, RA, DJD, DDD, edema, other Other: obesity PSxH Narrative: hysterectomy Anesthesia Pre-op Phys. Exam Physician Exam Last Vital Signs Date Time Temp Pulse Resp B/P (MAP) Pulse Ox O2 Delivery O2 Flow Rate FiO2 06/05/19 04:00 98.8 69 17 142/68 (92) 96 06/04/19 21:00 Room Air 06/04/19 19:50 2.0 28 Constitutional: NAD Neurologic: CN 2-12 intact Cardiovascular: RRR Respiratory: CTA Gastrointestinal: S/NT/ND Airway Exam Mallampati Classification 3 Mallampati Score: Class III MO: limited ROM: limited Teeth: missing, broken Dentures: no upper, no lower Anesthesia Pre-op A/P Labs Hematology Test 06/05/19 05:40 White Blood Count 9.4 K/UL (4.8-10.8) Red Blood Count 3.60 M/UL (4.20-5.40) L Hemoglobin 8.2 G/DL (12.0-16.0) L Hematocrit 28.0 % (37.0-47.0) L Mean Corpuscular Volume 78 FL (80-99) L Mean Corpuscular Hemoglobin 22.8 PG (27.0-31.0) L Mean Corpuscular Hemoglobin Concent 29.3 G/DL (32.0-36.0) L Red Cell Distribution Width 18.7 % (11.6-14.8) H Platelet Count 209 K/UL (150-450) Mean Platelet Volume 8.1 FL (6.5-10.1) Neutrophils (%) (Auto) 63.8 % (45.0-75.0) Lymphocytes (%) (Auto) 21.8 % (20.0-45.0) Monocytes (%) (Auto) 6.3 % (1.0-10.0) Eosinophils (%) (Auto) 7.2 % (0.0-3.0) H Basophils (%) (Auto) 0.9 % (0.0-2.0) Chemistry Test 06/05/19 05:40 Sodium Level 145 MMOL/L (136-145) Potassium Level 4.6 MMOL/L (3.5-5.1) Chloride Level 109 MMOL/L (98-107) H Carbon Dioxide Level 30 MMOL/L (21-32) Anion Gap 6 mmol/L (5-15) Blood Urea Nitrogen 25 mg/dL (7-18) H Creatinine 1.8 MG/DL (0.55-1.30) H Estimat Glomerular Filtration Rate mL/min (>60) Glucose Level 85 MG/DL (74-106) Calcium Level 9.3 MG/DL (8.5-10.1) Studies Pre-op Studies: EKG - SR Risk Assessment & Plan Assessment: antoine SWAIN Plan: mac Pre-Antibiotics Drug: none Yessy Decker CRNA Jun 05, 2019 07:29
--- NOTE | 2019-06-05 07:35 | NUR ---
NURSE NOTES: Report received from GABY Capps. Patient is in procedure at this time. White board updated. Bed made.
--- NOTE | 2019-06-05 07:42 | NUR ---
NURSE NOTES: Report given to GABY Hernandez.
--- NOTE | 2019-06-05 08:00 | Immediate Post-Op Evaluation ---
Immediate Post-Op Evalulation Immediate Post-Op Evalulation Procedure: EGD; Colonoscopy Date of Evaluation: Jun 05, 2019 Time of Evaluation: 08:00 IV Fluids: 500 Blood Pressure Systolic: 121 Blood Pressure Diastolic: 48 Pulse Rate: 69 Respiratory Rate: 14 O2 Sat by Pulse Oximetry: 98 Temperature (Fahrenheit): 97.4 Nausea: No Vomiting: No Complications none Patient Status: awake, reacts, patent Hydration Status: adequate Drug: none AlexariYessy almaraz CRNA Jun 05, 2019 08:00
--- NOTE | 2019-06-05 08:33 | NUR ---
NURSE NOTES: Report received from Jolene Foss. Pt. back on the floor.
[2019-06-05] MEDS: Docusate 100mg cap ORAL SCH (09:00)
--- NOTE | 2019-06-05 09:27 | NUR ---
*-* INSURANCE *-* UPDATED CLINICALS HAVE BEEN FAXED TO: [facility] Co[employer] Queen F: [phone]
[2019-06-05] MEDS: Losartan 50mg tab ORAL SCH (09:33)
[2019-06-05] MEDS: Glimepiride 4mg tab ORAL SCH (09:34)
[2019-06-05] MEDS: Ocean Nasal Spray 45ml NASAL SCH (09:34)
[2019-06-05] MEDS: Hyoscyamine 0.125mg tab ORAL PRN (09:41)
--- NOTE | 2019-06-05 10:25 | NUR ---
CASE MANAGEMENT:REVIEW 06/05/19 SI: ANEMIA. CKD. CHEST PAIN W/HISTORY OF CAD STILL WITH DIFFUSE ABDOMINAL PAIN 97.9 58 16 124/52 99% on 2l/nc H/H-8.2/28.0 BUN+25 CR+1.8 IS: IV VENOFER QHS SS INSULIN AC+HS AMARYL PO BID LASIX PO BID LISINOPRIL PO QD COZAAR PO QD PROTONIX PO QAM : TELEMETRY STATUS DCP: PATIENT IS FROM HOME PLAN: EGD/COLONOSCOPY THIS MORNING
--- NOTE | 2019-06-05 10:51 | 48 Hour Post Anesthesia Eval ---
Post Anesthesia Evaluation Procedure: EGD; Colonoscopy Date of Evaluation: Jun 05, 2019 Time of Evaluation: 10:51 Blood Pressure Systolic: 112 0: 58 Pulse Rate: 51 Respiratory Rate: 14 Temperature (Fahrenheit): 97.9 Airway: patent Nausea: No Vomiting: No Hydration Status: adequate Cardiopulmonary Status: stable Mental Status/LOC: patient returned to baseline Follow-up Care/Observations: na Post-Anesthesia Complications: none Follow-up care needed: N/A Yessy Decker CRNA Jun 05, 2019 10:51
--- NOTE | 2019-06-05 11:33 | NUR ---
RD ASSESSMENT & RECOMMENDATIONS SEE CARE ACTIVITY FOR COMPLETE ASSESSMENT DAILY ESTIMATED NEEDS: Needs based on DM, cardiac, obese 68kg adj 20-25 kcals/kg 1495-1295 total kcals 1-1.5 g protein/kg 68-102 g total protein H/o CHF, fluid per MD NUTRITION DIAGNOSIS: Altered nutrition related lab values r/t diabetes as evidenced by A1C 8.8 with elev BG (130-221). (CURRENT DIET: Cardiac) PO DIET RECOMMENDATIONS--->>> DIET CHANGE TO CCHO LOW + LOW NA ADDITIONAL RECOMMENDATIONS: 1) Obtain a standing weight as able 2) Monitor tolerance to reinstated diet -
[2019-06-05] MEDS ORDERED: IRON325 M1 PO (13:21)
--- NOTE | 2019-06-05 13:50 | Endoscopy Procedure Note ---
Endoscopy Procedure Note General Indication for Procedure: anemia Procedures Performed: EGD, colonoscopy Operative Findings/Diagnosis: gastritis, colon polyp Specimen: yes Pt Tolerated Procedure Well: No Estimated Blood Loss: none Anesthesia Anesthesiologist: see attached Anesthesia: MAC Medications Medication Given: see anesthesia record Inserted Devices Implant(s) used?: No GI Core Measures 50 yrs or older w/o bx or poly: Not Applicable 10yrs. F/U recommended: Not Applicable If not recommended, why?: Awilda Augustin MD Jun 05, 2019 13:50
--- NOTE | 2019-06-05 13:52 | Brief Operative Note ---
Immediate Post Operative Note Operative Note Chief Complaint: anemia Pre-op Diagnosis: anemia Procedure: esophagogastroduodenoscopycolon, Post-op Diagnosis: colon polyp Surgeon: leela Anesthesiologist: see report Anesthesia: MAC Specimen: yes Complications: none Condition: stable Fluids: recorded Estimated Blood Loss: none Drains: none Implant(s) used?: No Awilda Augustin MD Jun 05, 2019 13:52
--- NOTE | 2019-06-05 15:24 | Hematology/Onc Progress Note ---
Assessment/Plan Assessment/Plan Assessment and Recs: # Anemia of iron deficiency in the setting of anticoagulant (xarelto) use, would recommend evaluation of Gi bleed, has been seen by gi --> consider to proceed with endoscopy as per Gi, cards clearance --> in this setting xarelto is likely causing any bleed to become exacerbated --> anemia panel has been reviewed, ferritin SEVERELY LOW --> at this time, continue on iv iron 100mg X 5 days and may need outpatient iron as well --> EPOGEN 3x a week has been started --> Hgb trend: 8.2--> --> smear to be reviewed, no schistocytes noted --> s/p COLO/EGD 06/05 - results pending --> if no bleed found by endoscopy, consider capsule eval --> r/o malignancy, tumor markers ordered, screen test --> off XARELTO UNTIL AFTER ENDOSCOPY # Recurrent PE, per patient 1st PE, she did not receive any anticoagulant --> at this time, continue xarelto lifelong or similar anticoagulant (once endoscopy completed) --> would not rec ivcfilter given xarelto still in system, will slowly disspate based on 1/2 life --> does not have dvt of lower ext # CHF, diastolic dysfunction --> as per cards eval # 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 Subjective Hematologic/Lymphatic: Reports: anemia Allergies: Coded Allergies: No Known Allergies (Unverified , 09/08/18) All Systems: reviewed and negative except above Subjective 06/03: no events, is on iron, no f/c, no night sweats, potential colo/egd sat, with abd pain, ongoing 06/04: no events, for colo/egd for potential for tuesday 06/05: s/p egd w/ colo, tolerated procedure well, results pending, labs reviewed. Objective Objective Current Medications Medications (Trade) Dose Ordered Sig/Mary Route PRN Reason Start Time Stop Time Status Last Admin Dose Admin Clonidine HCl (Catapres Tab) 0.1 mg Q6H PRN ORAL For High Blood Pressure 05/29/19 03:15 06/28/19 03:14 Dextrose (Dextrose 50%) 25 ml Q30M PRN IV Hypoglycemia 05/29/19 08:00 06/28/19 07:59 Dextrose (Dextrose 50%) 50 ml Q30M PRN IV Hypoglycemia 05/29/19 08:00 06/28/19 07:59 Docusate Sodium (Colace) 100 mg TWICE A DAY ORAL 06/01/19 09:00 07/01/19 08:59 06/04/19 08:34 Epoetin Yvon (Epoetin Yvon-EPBX(NON ESRD)) 4,000 unit SAT-SAT-SAT SUBQ 06/03/19 21:00 07/03/19 20:59 06/03/19 20:56 Famotidine (Pepcid) 20 mg ACBREAKFAST ORAL 05/29/19 06:30 06/28/19 06:29 06/04/19 06:33 Gabapentin (Neurontin) 300 mg DAILY ORAL 05/29/19 09:00 06/28/19 08:59 06/05/19 09:34 Glimepiride (Amaryl) 4 mg BID ORAL 05/29/19 10:15 06/28/19 10:14 06/05/19 09:34 Hyoscyamine Sulfate (Levsin) 0.125 mg Q4H PRN ORAL For Pain 06/03/19 10:30 07/03/19 10:29 06/05/19 09:41 Insulin Aspart (NovoLOG Mix 70/ 30) 62 units BIAC SUBQ 05/29/19 06:30 06/28/19 06:29 06/04/19 17:52 Insulin Aspart (NovoLOG) BEFORE MEALS AND HS SUBQ 05/29/19 11:30 06/28/19 11:29 06/05/19 12:21 Iron Sucrose 100 mg/Sodium Chloride 60 ml @ 240 mls/hr BEDTIME IV 06/01/19 21:00 06/05/19 21:14 06/04/19 21:16 Losartan Potassium (Cozaar) 50 mg DAILY ORAL 06/04/19 09:00 07/04/19 08:59 06/05/19 09:33 Pantoprazole (Protonix) 40 mg ACBREAKFAST ORAL 05/29/19 06:30 06/28/19 06:29 06/04/19 06:33 Polyethylene Glycol (Miralax) 17 gm BEDTIME ORAL 05/31/19 21:00 06/30/19 20:59 06/01/19 20:10 Pravastatin Sodium (Pravachol) 40 mg BEDTIME ORAL 05/29/19 21:00 06/28/19 20:59 06/04/19 21:17 Sodium Chloride ([place] Nasal [place]) 2 spray BID NASAL 05/29/19 09:00 06/28/19 08:59 06/05/19 09:34 Last 24 Hour Vital Signs Date Time Temp Pulse Resp B/P (MAP) Pulse Ox O2 Delivery O2 Flow Rate FiO2 06/05/19 10:51 51 14 06/05/19 09:55 78 72 75 06/05/19 09:33 112/58 06/05/19 09:00 Room Air 06/05/19 08:25 97.9 58 16 124/52 99 Nasal Cannula 2 06/05/19 08:15 57 19 111/50 97 Nasal Cannula 2 06/05/19 08:05 60 14 132/51 96 Nasal Cannula 2 06/05/19 08:00 72 06/05/19 08:00 57 15 125/51 98 Nasal Cannula 2 06/05/19 08:00 69 14 98 06/05/19 07:55 97.4 69 14 121/48 98 Nasal Cannula 2 06/05/19 04:00 98.8 69 17 142/68 (92) 96 06/05/19 04:00 67 06/05/19 00:00 98.2 61 18 142/56 (84) 98 06/05/19 00:00 62 06/04/19 21:00 Room Air 06/04/19 20:00 62 06/04/19 20:00 97.9 60 18 115/48 (70) 97 06/04/19 19:50 96 Nasal Cannula 2.0 28 06/04/19 16:00 66 06/04/19 16:00 97.6 62 18 137/56 (83) 99 06/04/19 12:00 56 06/04/19 12:00 97.7 62 18 123/60 (81) 100 06/04/19 09:00 67 64 70 06/04/19 09:00 Room Air 06/04/19 08:35 118/48 06/04/19 08:00 98.5 67 18 118/48 (71) 95 06/04/19 08:00 64 06/04/19 04:00 97.1 72 20 118/49 (72) 95 06/04/19 04:00 72 06/04/19 00:00 98.2 67 24 119/48 (71) 95 06/04/19 00:00 67 06/03/19 21:52 95 Nasal Cannula 2.0 28 06/03/19 21:00 Nasal Cannula 2.0 06/03/19 20:00 59 06/03/19 20:00 98.0 59 22 130/50 (76) 99 06/03/19 16:00 98.0 65 18 110/49 (69) 97 06/03/19 16:00 64 Intake and Output 06/04/19 06/05/19 19:00 07:00 Intake Total 280 ml Output Total 5 ml Balance 280 ml -5 ml Intake Oral 280 ml Output Urine Total 5 ml # Voids 3 Labs Test 06/03/19 06:50 06/04/19 06:28 06/05/19 05:40 White Blood Count 10.1 K/UL (4.8-10.8) 9.6 K/UL (4.8-10.8) 9.4 K/UL (4.8-10.8) Red Blood Count 3.72 M/UL (4.20-5.40) 3.63 M/UL (4.20-5.40) 3.60 M/UL (4.20-5.40) Hemoglobin 8.6 G/DL (12.0-16.0) 8.4 G/DL (12.0-16.0) 8.2 G/DL (12.0-16.0) Hematocrit 28.8 % (37.0-47.0) 28.1 % (37.0-47.0) 28.0 % (37.0-47.0) Mean Corpuscular Volume 77 FL (80-99) 77 FL (80-99) 78 FL (80-99) Mean Corpuscular Hemoglobin 23.2 PG (27.0-31.0) 23.2 PG (27.0-31.0) 22.8 PG (27.0-31.0) Mean Corpuscular Hemoglobin Concent 29.9 G/DL (32.0-36.0) 29.9 G/DL (32.0-36.0) 29.3 G/DL (32.0-36.0) Red Cell Distribution Width 18.4 % (11.6-14.8) 18.6 % (11.6-14.8) 18.7 % (11.6-14.8) Platelet Count 235 K/UL (150-450) 223 K/UL (150-450) 209 K/UL (150-450) Mean Platelet Volume 6.9 FL (6.5-10.1) 7.7 FL (6.5-10.1) 8.1 FL (6.5-10.1) Neutrophils (%) (Auto) 68.9 % (45.0-75.0) 65.9 % (45.0-75.0) 63.8 % (45.0-75.0) Lymphocytes (%) (Auto) 21.3 % (20.0-45.0) 21.2 % (20.0-45.0) 21.8 % (20.0-45.0) Monocytes (%) (Auto) 4.0 % (1.0-10.0) 6.4 % (1.0-10.0) 6.3 % (1.0-10.0) Eosinophils (%) (Auto) 4.9 % (0.0-3.0) 5.8 % (0.0-3.0) 7.2 % (0.0-3.0) Basophils (%) (Auto) 0.9 % (0.0-2.0) 0.8 % (0.0-2.0) 0.9 % (0.0-2.0) Sodium Level 142 MMOL/L (136-145) 145 MMOL/L (136-145) Potassium Level 4.2 MMOL/L (3.5-5.1) 4.6 MMOL/L (3.5-5.1) Chloride Level 106 MMOL/L (98-107) 109 MMOL/L (98-107) Carbon Dioxide Level 30 MMOL/L (21-32) 30 MMOL/L (21-32) Anion Gap 6 mmol/L (5-15) 6 mmol/L (5-15) Blood Urea Nitrogen 45 mg/dL (7-18) 25 mg/dL (7-18) Creatinine 2.3 MG/DL (0.55-1.30) 1.8 MG/DL (0.55-1.30) Estimat Glomerular Filtration Rate mL/min (>60) mL/min (>60) Glucose Level 130 MG/DL (74-106) 85 MG/DL (74-106) Calcium Level 9.1 MG/DL (8.5-10.1) 9.3 MG/DL (8.5-10.1) Total Bilirubin 0.4 MG/DL (0.2-1.0) Aspartate Amino Transf (AST/SGOT) 17 U/L (15-37) Alanine Aminotransferase (ALT/SGPT) 12 U/L (12-78) Alkaline Phosphatase 97 U/L (46-116) Total Protein 7.4 G/DL (6.4-8.2) Albumin 3.0 G/DL (3.4-5.0) Globulin 4.4 g/dL Albumin/Globulin Ratio 0.7 (1.0-2.7) Height (Feet): 5 Height (Inches): 5.00 Weight (Pounds): 225 Objective PE Vital Signs Gen: no apparent distress, alert, GCS 15, nt Neck: full range of motion, supple/symm/no masses Respiratory: chest non-tender, lungs clear, normal breath sounds Cv: regular rate, rhythm, no edema GI: normal bowel sounds, non tender, soft, bt, nd Musculoskeletal: back normal, normal range of motion, non-tender Jatinder Melchor MD Jun 05, 2019 15:24
--- NOTE | 2019-06-05 16:30 | NUR ---
NURSE NOTES: Patient VS stable. Aware of discharge planning. Family informed of DC plan. Discharge package given to Pt. Medications to be continued communicated, Pt. verbalized understanding. Belongings checked, signed and filed. salt refiner removed, stored. IV removed, intact. ID band removed. Pt. aware to follow up with primary MD within a week. Left floor safe via wheelchair, accompanied by RN and daughter.
[2019-06-05] MEDS ORDERED: Xarelto 15mg tab ORAL SCH (17:00)
--- NOTE | 2019-06-05 17:00 | Procedure Note ---
DATE OF PROCEDURE: 06/05/2019 PROCEDURE: Upper gastrointestinal endoscopy with biopsy as well as snare polypectomy and saline injection. SURGEON: Awilda Augustin M.D. ANESTHESIA: Please see the separate anesthesiologist reports. PRE-ENDOSCOPIC DIAGNOSES: 1. Iron-deficiency anemia. 2. Heme-positive stools. POST-ENDOSCOPIC DIAGNOSES: 1. Mild nonerosive gastritis, status post biopsy of the antrum. 2. Status post random biopsy of the duodenum, antrum, fundus, and lower esophagus. 3. Normal terminal ileum to about 10 cm, status post biopsy. 4. Erythematous patch in the proximal ascending colon distal to the ileocecal valve of unclear significance, status post biopsy. 5. Sessile 1 cm polyp in the mid ascending colon, status post injection with 5 mL of saline followed by hot snare polypectomy, followed by Endoclip placement. 6. Sigmoid colon diverticulosis. 7. Status post random biopsy of the right and left colon. DESCRIPTION OF PROCEDURE: The procedure, its risks, indications, alternatives, and possible complications were explained the patient and informed consent was obtained. The patient was then sedated in the left lateral decubitus position. A diagnostic upper endoscope was introduced through the oropharynx and advanced to the duodenum. The endoscope was then gradually withdrawn. Rectal exam was done and the colonoscope was introduced in the rectum and advanced to the terminal ileum. It was gradually withdrawn. Retroflexed view of the rectum was done. Findings and procedures were as listed above. The colonoscope was removed. The patient was sent to recovery in good condition. COMPLICATIONS: None. ASSESSMENT: Heme-positive stools and iron-deficiency anemia can be attributed due to ulcerated 1 cm polyp seen in the ascending colon, which in the presence of a long-term anticoagulation can give the findings noted. The etiology of the patient's abdominal pain however is not clear. Biopsies will be evaluated to rule out evidence of microscopic colitis, Helicobacter pylori, or other pathology. RECOMMENDATIONS: 1. Resume oral diet. 2. Resume anticoagulation tonight. 3. Monitor CBC as an outpatient. 4. Follow up biopsy results. 5. Outpatient Gastroenterology followup. Awilda Augustin M.D. DR: Ignacio JOB#: [id number] CC: COBY
--- NOTE | 2019-06-07 12:59 | Cardiology Report ---
APPROVED REPORT EXAM: Two-dimensional and M-mode echocardiogram with Doppler and color Doppler. INDICATION Tachycarida M-Mode DIMENSIONS IVSd0.9 (0.7-1.1cm)Left Atrium (MM)3.7 (1.6-4.0cm) LVDd5.5 (3.5-5.6cm)Aortic Root3.1 (2.0-3.7cm) PWd0.9 (0.7-1.1cm)Aortic Cusp Exc.2.1 (1.5-2.0cm) IVSs1.2 cm LVDs3.2 (2.5-4.0cm) PWs1.6 cm Normal left ventricular chamber size, systolic function and wall motion. Left ventricular ejection fraction estimated to be 55-60 %. Mild left ventricular hypertrophy . Anterior Echo-free space, may be due to pericardial fat or effusion. No evidence of left atrial enlargement . Right cardiac chamber sizes is within normal limits. Focal aortic valve sclerosis with adequate cusp excursion. Thickened mitral valve leaflets with normal excursion. Mitral annulus and aortic root calcification. Normal pulmonic valve structure. Normal tricuspid valve structure. IVC at normal size with physiologic collapse. A color flow and spectral Doppler study was performed and revealed: No aortic regurgitation.. Trace mitral regurgitation. Mitral diastolic velocities suggest reduced left ventricular relaxation c/w mild LV diastolic dysfunction (Grade I ) Mild tricuspid regurgitation. Tricuspid systolic velocities suggests peak right ventricular systolic pressure of 38 mmHg,consistent with mild pulmonary HTN.
--- NOTE | 2019-06-07 14:14 | Discharge Summary ---
Discharge Summary Discharge Summary _ DATE OF ADMISSION: 05/29/2019 DATE OF DISCHARGE: 06/05/2019 DISCHARGED BY:Dr. Balbuena REASON FOR ADMISSION: 74 years old female with past medical history of hypertension, diabetes mellitus , coronary artery disease, history of NH, congestive heart failure, pulmonary emboli, anemia, was recently seen by her primary care provider with concern for anemia. Patient presented to emergency department for further evaluation and management. Patient with history of blood transfusion in the past. Patient reported chest pain and shortness of breath for the past 2 weeks , primarily with exertion. Patient uses oxygen at home. Patient on anticoagulation/Xarelto for pulmonary emboli , which was diagnosed about a year ago. She denied cough or congestion he had She denied fever and chills. She denied abdominal pain, nausea, vomiting. Upon evaluation vital signs were stable. Pulse oximetry on 2 L of oxygen was 98%. Urinalysis revealed no evidence for UTI. Laboratory work-up revealed no leukocytosis, hemoglobin 7.7, hematocrit 26.4. Platelet 283. Stable electrolytes. BUN 26, creatinine 2.6. Stable LFT. . Chest x-ray revealed central pulmonary fullness/congestion. Troponin negative. EKG revealed sinus rhythm with a first-degree IV block Patient started on blood transfusion and admitted to telemetry floor. CONSULTANTS: wringer operator Dr. Guillen GI specialist dr. Augustin customs entry clerk/oncologist Dr. Melchor [facility]SE: Patient admitted to telemetry floor. Chicken Dresser closely followed. Serial troponin were negative. EKG revealed no acute ischemic changes. Patient was ruled out for acute NH. Patient with history of coronary artery disease. Echocardiogram revealed preserved ejection fraction 55 to 60% with mild left ventricular hypertrophy. No evidence of wall motion abnormality. Right ventricular systolic pressure of 38, consistent with mild pulmonary hypertension. Patient undergone myocardial perfusion scan test, which was nonischemic. Calculated post stress ejection fraction was greater than 70%. Lipid panel revealed elevated triglycerides of 168, but stable total cholesterol and LDL. Statin was continued. Blood pressure was managed with losartan. Orthostatic vital signs revealed no evidence of orthostasis . Xarelto was continued. Patient with history of recurrent PE. Legal Manager recommended lifelong Xarelto or similar anticoagulation . Supplemental oxygen titrated to keep pulse oximetry above 92%. Pulmonary toilet was on board as needed. Hemoglobin and hematocrit were closely monitored with goal to keep hemoglobin above 7. Patient undergone transfusion of 2 units of PRB. Prior to discharge hemoglobin 8.2 hematocrit 28 Anemia work-up revealed evidence of iron deficiency anemia. Patient was on IV iron and Epogen. Prior to discharge hemoglobin 8.2, hematocrit 28. CT of the abdomen and pelvis revealed no acute abnormality. Colonic diverticulosis without evidence of diverticulitis and evidence of pelvic floor insufficiency. Stool for occult blood was positive. GI specialist closely followed. Patient undergone upper endoscopy with biopsy and snare polypectomy with saline injection. be During procedure noted mild nonerosive gastritis, status post biopsy, status post random biopsy of the duodenum, antrum, fundus, and lower esophagus, normal terminal ileum to about 10 cm status post biopsy, erythematous patch in the proximal ascending colon distal to the ileocecal valve of unclear significance, status post biopsy, sessile 1 cm polyp in the mid ascending colon, status post injection with 5 mL of saline, followed by hot snare polypectomy, follow-up by Endo Clip placement, sigmoid colon diverticulosis, status post random biopsy of the right and left colon. Per GI specialist iron deficiency anemia and GI bleeding could be attributed to ulcerated 1 cm polyp, seen in the ascending colon, which in the presence of assisted anticoagulation can give the findings noted. At the time of this dictation biopsy results still pending. Biopsies will be further evaluated to rule out evidence of microscopic colitis , Helicobacter pylori, or other pathology. Cancer tumor markers CEA, CA 125, and CA-19-9, all within normal range. GI recommended outpatient follow-up. GI cleared to resume anticoagulation. Bowel regimen instituted GI prophylaxis provided Pain management was addressed. Blood sugar was managed with Amaryl and sliding scale of insulin as needed. . Renal parameters and electrolytes were closely monitored. Electrolytes corrected as needed. Nephrotoxins were avoided. Creatinine from 2.6 down to 1.8 and BUN from 27 down to 25. FINAL DIAGNOSES: Anemia likely due to chronic kidney disease and GI bleeding GI bleeding with Hemoccult stool positive Chronic CHF with diastolic dysfunction Recurrent PE Iron deficiency anemia Chronic kidney disease stage 4 Chest pain, history of CAD( stress test negative) Status post EGD with biopsy and snare polypectomy and saline injection DISCHARGE MEDICATIONS: See Medication Reconciliation list. DISCHARGE INSTRUCTIONS: Patient was discharged home . Follow up with primary care provider in one week. I have been assigned to dictate discharge summary for this account. I was not involved in the patient's management. Jewell Johnson NP Jun 07, 2019 14:14
--- NOTE | 2019-06-08 13:31 | NUR ---
*-* INSURANCE *-* DISCHARGE SUMMARY HAS BEEN FAXED TO: [facility] F: [phone]
--- NOTE | 2019-06-08 21:01 | Cardiology Report ---
APPROVED REPORT EKG Measurement Heart [id number] Sinus rhythm with 1st degree AV block Otherwise normal ECG
== END 2019-06-05 16:30 | disposition home or self-care (01) | DRG 812 ==
LOC: EMR 19:43 → EDBEDREQ 20:46 → 2E 05-29 00:24 → EDBEDREQ 05-29 00:54 → 2E 05-30 00:24
PROC: 0DB78ZX Excision of Stomach, Pylorus, Via Natural or Artificial Opening Endoscopic, Diagnostic (ICD-10-PCS; principal; 2019-06-05 07:07)
PROC: 0DBN8ZX Excision of Sigmoid Colon, Via Natural or Artificial Opening Endoscopic, Diagnostic (ICD-10-PCS; principal; 2019-06-05 07:07)
PROC: 0DBK8ZX Excision of Ascending Colon, Via Natural or Artificial Opening Endoscopic, Diagnostic (ICD-10-PCS; principal; 2019-06-05 07:07)
PROC: 0DB98ZX Excision of Duodenum, Via Natural or Artificial Opening Endoscopic, Diagnostic (ICD-10-PCS; principal; 2019-06-05 07:07)
PROC: 0DB88ZX Excision of Small Intestine, Via Natural or Artificial Opening Endoscopic, Diagnostic (ICD-10-PCS; principal; 2019-06-05 07:07)
PROC: 0DB58ZX Excision of Esophagus, Via Natural or Artificial Opening Endoscopic, Diagnostic (ICD-10-PCS; principal; 2019-06-05 07:07)
DX: D50.9 Iron deficiency anemia, unspecified (principal); K92.2 Gastrointestinal hemorrhage, unspecified; N18.4 Chronic kidney disease, stage 4 (severe); I50.32 Chronic diastolic (congestive) heart failure; I13.0 Hypertensive heart and chronic kidney disease with heart failure and stage 1 through stage 4 chronic kidney disease, or unspecified chronic kidney disease; N17.9 Acute kidney failure, unspecified; R07.9 Chest pain, unspecified; I25.10 Atherosclerotic heart disease of native coronary artery without angina pectoris; D63.1 Anemia in chronic kidney disease; K29.70 Gastritis, unspecified, without bleeding; D12.2 Benign neoplasm of ascending colon; K57.90 Diverticulosis of intestine, part unspecified, without perforation or abscess without bleeding; E11.9 Type 2 diabetes mellitus without complications; I25.2 Old myocardial infarction; Z86.711 Personal history of pulmonary embolism
CPT/HCPCS: 36415; 45381; 71045; 74176; 78452; 80048; 80053; 80061; 81003; 82270; 82378; 82550; 82553; 82607; 82728; 82746; 82962; 83036; 83540; 83550; 83735; 83880; 84439; 84443; 84484; 85007; 85025; 86304; 86850; 86900; 86901; 86920; 93005; 93017; 93306; 94003; 94150; 96374; 99285; J1815; J2785